=== PATIENT | female | born 1945 | race Caucasian/White ===

== ENCOUNTER 2017-11-02 19:11 | Emergency (ER) | payer OTHER ==
[2017-11-02 19:24] VITALS: BP 197/114; PULSE 95; TEMP 98.7; BMI 26.3
--- NOTE | 2017-11-02 19:28 | PDOC ---
History of Present Illness - General History Source: Patient Exam Limitations: No Limitations - History of Present Illness Initial Comments: 11/02/17 19:53 The patient is a 72 year old female with a significant past medical history of HTN and HLD who presents to the ED with left sided breast erythema. The patient reports erythema to her left breast. She reports similar symptoms in the past and was told she had an infected cyst in her left breast and was given antibiotics. Patient states she is currently on antibiotics secondary to being diagnosed with bronchitis a week ago. Patient states her last mammogram was several years ago. Denies fever or chills. Denies shortness of breath or chest pain. Denies nausea , vomiting, or diarrhea. Denies any other symptoms PAST MEDICAL HISTORY: HTN, HLD, cyst in the left breast PAST SURGICAL HISTORY: no significant history FAMILY HISTORY: no pertinent history SOCIAL HISTORY: Pt lives with family. MEDICATIONS: reviewed ALLERGIES: Sulfa General: No fevers or chills, no weakness, no weight loss HEENT: No change in vision. No sore throat,. No ear pain CardioVascular: No chest pain or shortness of breath Respiratory:No cough, or wheezing. Gastrointestinal: no nausea, vomiting, diarrhea or constipation, No rectal bleeding Genitourinary: No dysuria, hematuria, or frequency Musculoskeletal: No joint or muscle pain or swelling Neurologic: No headache, vertigo, dizziness or loss of consciousness Psychiatric: nor depression Skin: + redness to breast. No rashes or easy bruising Endocrine: no increased thirst or abnormal weight change Allergic: no skin or latex allergy All other systems reviewed and normal General: Well-nourished well-developed individual, no acute distress HEENT: Throat: Normal, tonsils normal, no erythema or exudate Neck: Supple, no meningeal signs, no lymphadenopathy Eyes::Pupils equal reactive and round, extraocular motion intact Chest: Breast: + generalized erythema of the anterior portion of the left breast, no palpable collection. There is a small palpable cyst lateral to the nipple, no discharge to the nipple. no palpable masses. Cardiac: S1-S2 normal, regular rate and rhythm, no murmurs rubs or gallops Respiratory: Lungs clear to auscultation bilateral Abdomen: Soft, nondistended, normal bowel sounds, nontender to palpation diffusely Extremities: Warm, dry, no cyanosis, clubbing, or edema Skin: No rashes Neuro: Alert and oriented x3, nonfocal exam, grossly intact, normal gait Psych: Normal mood and affect <Charlie Varela - Last Filed: 11/02/17 19:53> - General History Source: Patient Exam Limitations: No Limitations - History of Present Illness Initial Comments: A portion of this note was documented by scribe services under my direction. I have reviewed the details of the note, within reason, and agree with the documentation. The case summary and management plan written by me. Assessment and plan: This is a 72-year-old female who comes in complaining of redness and discomfort in her left breast. Patient has a history of breast cellulitis in the past secondary to a cyst that she has that has become infected. Discussed with patient the importance that if the antibiotics do not clear up the infection that it is important that she get her mammogram and follow-up with her primary care doctor. As there is a low chance that this could be a neoplasm and not cellulitis. 11/02/17 20:13 <Blayne Ramirez I - Last Filed: 11/02/17 20:14> - General Chief Complaint: Pain, Acute Stated Complaint: CYST ON LEFT NIPPLE Time Seen by Provider: 11/02/17 19:27 Past History <Charlie Varela - Last Filed: 11/02/17 19:53> - Past Medical History COPD: No HTN: Yes Hypercholesterolemia: Yes Lung CA: (ANXIETY) - Suicide/Smoking/Psychosocial Hx Smoking History: Current every day smoker Have you smoked in the past 12 months: Yes Number of Cigarettes Smoked Daily: 10 Information on smoking cessation initiated: Yes 'Breaking Loose' booklet given: 11/02/17 Hx Alcohol Use: No Drug/Substance Use Hx: No <Blayne Ramirez I - Last Filed: 11/02/17 20:14> - Past Medical History Allergies/Adverse Reactions: Allergies Allergy/AdvReac Type Severity Reaction Status Date / Time sulfur [From Sulfur-8] Allergy Verified 11/02/17 20:10 Home Medications: Ambulatory Orders Alprazolam [Xanax -] 2 mg PO DAILY 11/13/13 Metoprolol Tartrate [Lopressor -] 50 mg PO DAILY 11/13/13 Clindamycin [Cleocin -] 600 mg PO QID #28 capsule 11/02/17 *Physical Exam - Vital Signs Last Vital Signs Temp Pulse Resp BP Pulse Ox 98.7 F 95 H 18 197/114 96 11/02/17 19:17 11/02/17 19:17 11/02/17 19:17 11/02/17 19:17 11/02/17 19:17 <Charlie Varela - Last Filed: 11/02/17 19:53> - Vital Signs Last Vital Signs Temp Pulse Resp BP Pulse Ox 98.7 F 95 H 18 197/114 96 11/02/17 19:17 11/02/17 19:17 11/02/17 19:17 11/02/17 19:17 11/02/17 19:17 <Blayne Ramirez I - Last Filed: 11/02/17 20:14> *DC/Admit/Observation/Transfer - Attestations Scribe Attestion: 11/02/17 19:53 Documentation prepared by Charlie Varela, acting as medical pathologist for Blayne Ramirez MD <Charlie Varela - Last Filed: 11/02/17 19:53> - Discharge Dispostion Admit: No <Blayne Ramirez I - Last Filed: 11/02/17 20:14> Diagnosis at time of Disposition: Cellulitis of left breast - Discharge Dispostion Disposition: HOME Condition at time of disposition: Stable - Referrals Referrals: Bob Montgomery MD [Primary Care Provider] - - Patient Instructions Additional Instructions: Take clindamycin 300 mg 4 times a day for the next 7 days. This medication will likely give you diarrhea if you do not take a probiotic every day you are taking the antibiotics. Return to the emergency department immediately with ANY new, persistent or worsening symptoms. Continue any medications as previously prescribed by your physician. You should follow up with your primary doctor as soon as possible regarding today's emergency department visit. . Please make sure your doctor reviews the results of your emergency evaluation. Thank you for coming to the Emergency Department today for your care. It was a pleasure to see you today. Please note that your evaluation is INCOMPLETE until you follow-up with your doctor. - Post Discharge Activity
[2017-11-02] MEDS ORDERED: CLINDAMYCIN PALMITATE HCL ORAL SOLUTION 75 MG/5 ML BOTTLE PO ONE (20:09)
[2017-11-02] MEDS ORDERED: CLINDAMYCIN HCL 150 MG CAPSULE (FP) ONE (20:11)
[2017-11-02] MEDS ORDERED: CLINDAMYCIN HCL 150 MG CAPSULE (FP) PO ONE (20:13)
--- NOTE | 2017-11-03 09:47 | PDOC ---
Patient Follow-up (Call Back) - Post ED Follow - Up Condition at time of discharge: Stable Disposition at time of original discharge: HOME - Disposition Additional Instructions/Notes: Received a call from [facility] pharmacy regarding Clindamycin prescription. Pt was prescribed clindamycin 600mg QID x 7 days. Per chart review, Dr. De La Fuente's instructions state pt is to take 300mg QID x 7 days. This was communicated to pharmacist, who will correct the dosage.
== END 2017-11-02 20:21 | disposition home or self-care (01) ==
LOC: FER 19:11
DX: N61.0 Mastitis without abscess (principal); I10 Essential (primary) hypertension; E78.5 Hyperlipidemia, unspecified; F17.210 Nicotine dependence, cigarettes, uncomplicated; Z88.2 Allergy status to sulfonamides
CPT/HCPCS: 99281-25

== ENCOUNTER 2019-04-04 11:55 | Emergency (ER) | payer OTHER ==
[2019-04-04 12:36] VITALS: BP 133/82; PULSE 73; TEMP 98.3; BMI 25.6
[2019-04-04 13:18] LABS: BASO % 0.3 % (0-2.0); EOS % 1.6 % (0-4.5); HEMATOCRIT 37.2 % (32.4-45.2); HEMOGLOBIN 12.4 GM/dl (10.7-15.3); LYMPH % 11.3 % (8-40); MCH 28.1 pg (25.7-33.7); MCHC 33.3 g/dl (32.0-36.0); MEAN CELL VOLUME 84.7 fl (80-96); MEAN PLT VOLUME 7.6 fl (7.5-11.1); MONO % 5.8 % (3.8-10.2); PLATELET COUNT 366 K/MM3 (134-434); RBC 4.39 M/mm3 (3.60-5.2); RDW 15.4 % (11.6-15.6); WHITE BLOOD COUNT 11.2 K/mm3 (4.0-10.8)
--- NOTE | 2019-04-04 13:25 | PDOC ---
History of Present Illness - General Chief Complaint: Lethargy Stated Complaint: lethargy Time Seen by Provider: 04/04/19 11:57 History Source: Patient, Family Exam Limitations: No Limitations - History of Present Illness Initial Comments: 04/04/19 15:22 This is a 74-year-old female with history of hypertension, hyperlipidemia presents to the emergency department for mechanical fall. Several months ago, the patient was noted to have hoarseness in her voice which was evaluated by an ENT surgeon. At that time, she was deemed to have vocal cord paralysis. Her primary care physician ultimately pursued with a CT chest and abdomen pelvis. There was notable finding of a mass pressing along her nerve controlling her vocal cords. She was recommended to pursue a PET scan which she has not yet done so. Approximately 1 month ago, the patient has become increasingly more forgetful, shuffling of gait, more fatigue and less like herself. The family has not noted any focal neural deficits but didn't note that she was in denial over the symptoms. The patient is often forgetful and repeating herself. Several days ago, the patient had a mechanical fall and landed on her left wrist. She has left wrist pain but no other injuries. Since then, because of the combination of all these symptoms, patient arrives to the ED at the request of the family. Denies recent illnesses, fevers, chills, cough, vomiting, diarrhea. Past History - Past Medical History Allergies/Adverse Reactions: Allergies Allergy/AdvReac Type Severity Reaction Status Date / Time sulfur [From Sulfur-8] Allergy Verified 04/04/19 12:24 Home Medications: Ambulatory Orders Albuterol Sulfate Inhaler - [Ventolin Hfa Inhaler -] 1 - 2 inh PO QID 04/04/19 Alprazolam [Xanax] 0.5 mg PO PRN PRN 04/04/19 Cephalexin Monohydrate [Keflex -] 500 mg PO BID #14 capsule 04/04/19 Fenofibric Acid [Trilipix -] 45 mg PO DAILY 04/04/19 Hydrochlorothiazide [Hctz -] 25 mg PO DAILY 04/04/19 Nebivolol HCl [Bystolic] 20 mg PO DAILY 04/04/19 Rosuvastatin [Crestor -] 10 mg PO HS 04/04/19 COPD: No HTN: Yes Hypercholesterolemia: Yes Psychiatric Problems: Yes (anxiety) Lung CA: (ANXIETY) - Suicide/Smoking/Psychosocial Hx Smoking History: Current every day smoker Have you smoked in the past 12 months: Yes Number of Cigarettes Smoked Daily: 10 Information on smoking cessation initiated: Yes 'Breaking Loose' booklet given: 11/02/17 Hx Alcohol Use: No Drug/Substance Use Hx: No Review of Systems - Review of Systems Able to Perform ROS?: Yes Comments:: 04/04/19 15:22 GENERAL/CONSTITUTIONAL: [No fever or chills. No weight change.] +weakness HEAD, EYES, EARS, NOSE AND THROAT: [No change in vision. No ear pain or discharge. No sore throat.] CARDIOVASCULAR: [No chest pain or shortness of breath.] RESPIRATORY: [No cough, wheezing, or hemoptysis.] GASTROINTESTINAL: [No nausea, vomiting, diarrhea or constipation. No rectal bleeding.] GENITOURINARY: [No dysuria, frequency, or change in urination.] MUSCULOSKELETAL: [ No neck or back pain.] + left wrist pain. SKIN AND BREASTS: [No rash or easy bruising.] NEUROLOGIC: [No headache, vertigo, loss of consciousness, or loss of sensation. ] +forgetfulness, fatigue PSYCHIATRIC: [No depression or anxiety.] ENDOCRINE: [No increased thirst. No abnormal weight change.] HEMATOLOGIC/LYMPHATIC: [No anemia, easy bleeding, or history of blood clots.] ALLERGIC/IMMUNOLOGIC: [No hives or skin allergy. No latex allergy.] *Physical Exam - Vital Signs Last Vital Signs Temp Pulse Resp BP Pulse Ox 98.3 F 73 20 133/82 98 04/04/19 11:56 04/04/19 11:56 04/04/19 11:56 04/04/19 11:56 04/04/19 11:56 - Physical Exam Comments: 04/04/19 15:23 GENERAL: Awake, alert, oriented x 1 (pt oriented to herself, but thinks it's [facility] and 1992), in no acute distress HEAD: No signs of trauma EYES: PERRLA, EOMI, sclera anicteric, conjunctiva clear ENT: Auricles normal inspection, hearing grossly normal, nares patent NECK: Normal ROM, supple, LUNGS: Breath sounds equal, clear to auscultation bilaterally. No wheezes, and no crackles HEART: Regular rate and rhythm, normal S1 and S2, no murmurs, rubs or gallops ABDOMEN: Soft, nontender, No guarding, no rebound. No masses EXTREMITIES: Normal range of motion, no edema. LUE: 2+ radial pulse. Sensation and strength intact throughout the median/radian /ulnar nerve distribution. TTP left lateral distal wrist but no joint instability. Flexion and extension associated with pain and discomfort. < 2 sec cap refill. NEUROLOGICAL: Cranial nerves II through XII intact. Speech slow but answer questions, gait appears to be slow and measured but otherwise unremarkable. FTN normal, rapid alternating normal. 5/5 strength upper and lower extremities. Sensation intact throughout. No extremity tremors or pill-rolling motion. SKIN: Warm, Dry, normal turgor, no rashes or lesions noted. Procedures - Splinting Splint Location: Left: Wrist Pre-Proc Neuro Vasc Exam: normal Hand-Made Type: orthoglass Splint Type: Yes: Sugar Tong Post-Proc Neuro Vasc Exam: normal Dav Bandage: 4" Sling: Yes Complications: No Heart Score/ECG Review #1 ECG reviewed & interpreted by me at: 13:10 04/04/19 15:14 NSR 71 with 1st degree AV block, TWI I, aVL, V4-V6, no std/alonzo, normal axis, normal intervals, QTC 452 msec ED Treatment Course - LABORATORY CBC & Chemistry Diagram: 04/04/19 13:00 04/04/19 12:59 - ADDITIONAL ORDERS Additional order review: 04/04/19 13:00 RBC 4.39 MCV 84.7 MCHC 33.3 RDW 15.4 D MPV 7.6 Neutrophils % 81.0 Lymphocytes % 11.3 Monocytes % 5.8 Eosinophils % 1.6 Basophils % 0.3 - RADIOLOGY Radiology Studies Ordered: Category Date Time Status HEAD CT WITHOUT CONTRAST [CT] Stat CT Scan 04/04/19 12:09 Completed CHEST PA & LAT [RAD] Stat Radiology 04/04/19 12:12 Taken WRIST-LEFT [RAD] Stat Radiology 04/04/19 12:11 Taken Medical Decision Making - Medical Decision Making 04/04/19 15:25 Vital Signs Temp Pulse Resp BP Pulse Ox 98.3 F 73 20 133/82 98 04/04/19 11:56 04/04/19 11:56 04/04/19 11:56 04/04/19 11:56 04/04/19 11:56 This is a patient who is presenting with progressive deconditioning and some element of failure to thrive over the past month. The patient has become increasingly more forgetful and tired. Differential includes dementia, tumor burden, metabolic disarray or infectious etiology. The patient has been increasingly more forgetful. Head CT is was obtained but demonstrates no acute findings. Blood work shows creatinine of 1.8. Urinalysis positive for infection. It could be possible that the patient's acute worsening is secondary to cystitis. Cephalexin was ordered and a prescription was given. Patient did have a fall several days ago which demonstrated a left wrist fracture. This distal radius fracture was then placed in a sugar tong splint with a sling. Patient was given referral to orthopedist as well as follow with her primary care physician. Overall, I agree that the patient will need to pursue workup for this progressive forgetfulness, but the family is agreeable for outpatient workup. *DC/Admit/Observation/Transfer Diagnosis at time of Disposition: UTI (urinary tract infection) Qualifiers: Urinary tract infection type: site unspecified Hematuria presence: without hematuria Qualified Code(s): N39.0 - Urinary tract infection, site not specified Wrist fracture Qualifiers: Encounter type: initial encounter Fracture type: closed Laterality: left Qualified Code(s): S62.102A - Fracture of unspecified carpal bone, left wrist, initial encounter for closed fracture Altered mental status Qualifiers: Altered mental status type: transient alteration of awareness Qualified Code(s) : R40.4 - Transient alteration of awareness - Discharge Dispostion Disposition: HOME Condition at time of disposition: Stable Decision to Admit order: No - Prescriptions Prescriptions: Cephalexin Monohydrate [Keflex -] 500 mg PO BID #14 capsule - Referrals - Patient Instructions Printed Discharge Instructions: DI for Dehydration -- Adult, DI for Wrist Fracture, DI for Urinary Tract Infection (UTI), DI for Altered Mental Status Additional Instructions: Your workup shows the following: Your creatinine is 1.8. You should bring a copy of this blood work to your doctor for follow-up. This will need to be rechecked with another blood work. Your left wrist shows a fracture along the distal radius. You have had a sugar tong splint applied with a sling. Please wear this at all times. It is important that you follow-up with an orthopedist. For pain, take 650 mg every 4 hours as needed. Elevate the arm is much she can to decrease the swelling. He may also ice over the splint to assist with the cooling. Also notable is a urine tract infection. Please take the antibiotics cephalexin 500 mg every 12 hours for 7 days. Please call back in one to 2 days for the urine culture results as well as the thyroid stimulating hormone test. Call [phone]. If you feel worse, have high fevers, uncontrollable pain, lethargy or other any returning symptoms, return to the ER for further evaluation. - Post Discharge Activity
[2019-04-04 13:37] LABS: ALBUMIN 3.4 g/dl (3.4-5.0); BILIRUBIN,TOTAL 0.7 mg/dl (0.2-1); CALCIUM 9.6 mg/dl (8.5-10); CREATININE 1.8 mg/dl (0.55-1.3); MAGNESIUM 2.2 mg/dL (1.8-2.4); PHOSPHOROUS 3.7 mg/dl (2.5-4.9); POTASSIUM 4.3 mmol/L (3.5-5.1); TOT PROT 6.8 g/dl (6.4-8.2)
[2019-04-04 13:58] LABS: INR 1.1 (0.82-1.09); PROTHROMBIN TIME (PATIENT) 12.3 SEC (10.2-13.0)
[2019-04-04 14:56] LABS: EPITHELIAL CELLS MODERATE /hpf
[2019-04-04] MEDS ORDERED: CEPHALEXIN MONOHYDRATE 500 MG CAPSULE (UD) ONE (15:20)
[2019-04-04 15:47] LABS: COCAINE, UR NEGATIVE ng/ml (CUTOFF=300); METHADONE, UR NEGATIVE ng/ml (CUTOFF=300); OPIATES, URI NEGATIVE ng/ml (CUTOFF=300); PHENCYCLIDINE,URINE NEGATIVE ng/ml (CUTOFF=25); URINE AMPHETAMINES NEGATIVE ng/ml (CUTOFF=500); URINE BARBITURATES NEGATIVE ng/ml (CUTOFF=200)
[2019-04-04 15:49] LABS: URINE BENZODIAZEPINES POSITIVE ng/ml (CUTOFF=200)
--- NOTE | 2019-04-04 17:37 | EKG ---
Test Reason : Blood Pressure : / mmHG Vent. Rate : 071 BPM Atrial Rate : 071 BPM P-R Int : 240 ms QRS Dur : 098 ms QT Int : 416 ms P-R-T Axes : 046 025 150 degrees QTc Int : 452 ms SINUS RHYTHM WITH 1ST DEGREE A-V BLOCK T WAVE ABNORMALITY, CONSIDER ANTEROLATERAL ISCHEMIA ABNORMAL ECG WHEN COMPARED WITH ECG OF 31-JUL-2001 18:57, [place] INTERVAL HAS INCREASED QT HAS LENGTHENED Confirmed by LORENA GUZMAN, RUSSELL ([id number]) on 04/04/2019 5:36:50 PM Referred By: DORIS JOEL Confirmed By:RUSSELL CARRILLO MD
== END 2019-04-04 15:36 | disposition home or self-care (01) ==
LOC: FER 11:55
DX: R40.4 Transient alteration of awareness (principal); N39.0 Urinary tract infection, site not specified; S62.102A Fracture of unspecified carpal bone, left wrist, initial encounter for closed fracture; I10 Essential (primary) hypertension; E78.5 Hyperlipidemia, unspecified; F41.9 Anxiety disorder, unspecified; F17.210 Nicotine dependence, cigarettes, uncomplicated
CPT/HCPCS: 36415; 70450-TC; 71046-TC-FY; 73110-TC-LT-FY; 80053; 80307; 81003; 81015; 83735; 84100; 84443; 84484; 85025; 85610; 85730; 86593; 87086; 87186; 93005; 99283-25

== ENCOUNTER 2019-04-08 12:47 | Emergency (ER) | payer OTHER ==
--- NOTE | 2019-04-08 12:52 | PDOC ---
History of Present Illness - General Chief Complaint: Revisit,Wound Recheck Stated Complaint: ORTHOGLASS SPLINT PROBLEM Time Seen by Provider: 04/08/19 12:52 History Source: Patient Exam Limitations: Clinical Condition - History of Present Illness Initial Comments: Isis Ambrocio is a 74 yo F w a pmh of HTN, HLD, and anxiety who presents to the ER because her splint which was applied 3 days ago in this ER is causing her pain. Her tried cutting off part of the splint at home but that just made the splint more painful and caused a minor laceration underneath the splint. The patient has full ROM of her hand, full sensation, and no complaints of pain other than from the splint. Denies fevers, chills, or other infections. PCP: Dr. Montgomery PSH: None reported Social Hx: Smokes 1 PPD Allergies: Sulfur Past History - Past Medical History Allergies/Adverse Reactions: Allergies Allergy/AdvReac Type Severity Reaction Status Date / Time sulfur [From Sulfur-8] Allergy Verified 04/04/19 12:24 Home Medications: Ambulatory Orders Albuterol Sulfate Inhaler - [Ventolin Hfa Inhaler -] 1 - 2 inh PO QID 04/04/19 Alprazolam [Xanax] 0.5 mg PO PRN PRN 04/04/19 Cephalexin Monohydrate [Keflex -] 500 mg PO BID #14 capsule 04/04/19 Fenofibric Acid [Trilipix -] 45 mg PO DAILY 04/04/19 Hydrochlorothiazide [Hctz -] 25 mg PO DAILY 04/04/19 Nebivolol HCl [Bystolic] 20 mg PO DAILY 04/04/19 Rosuvastatin [Crestor -] 10 mg PO HS 04/04/19 COPD: No HTN: Yes Hypercholesterolemia: Yes Psychiatric Problems: Yes (anxiety) Lung CA: (ANXIETY) - Suicide/Smoking/Psychosocial Hx Smoking History: Current every day smoker Have you smoked in the past 12 months: Yes Number of Cigarettes Smoked Daily: 10 'Breaking Loose' booklet given: 11/02/17 Hx Alcohol Use: No Drug/Substance Use Hx: No Review of Systems - Review of Systems Able to Perform ROS?: Yes Comments:: CONSTITUTIONAL: Absent: fever, no chills, no fatigue EYES: Absent: visual changes ENT: Absent: ear pain, no sore throat CARDIOVASCULAR: Absent: chest pain, no palpitations RESPIRATORY: Absent: cough, no SOB GI: Absent: abdominal pain, no nausea, no vomiting, no constipation, no diarrhea GENITOURINARY: Absent: dysuria, no frequency, no hematuria MUSKULOSKELETAL: Present: Arthralgia Absent: back pain, no myalgia SKIN: Present: Rash NEURO: Absent: headache *Physical Exam - Physical Exam Comments: GENERAL: Well-appearing, well-nourished. No apparent distress. HEENT: Normocephalic, atraumatic. PERRL, EOM intact. CARDIOVASCULAR: Normal S1, S2. Regular rate and rhythm. PULMONARY: No evidence of respiratory distress. Lungs clear to auscultation bilaterally. No wheezing, rales or rhonchi. ABDOMEN: Soft, non-distended, non-tender. EXTREMITIES: Normal ROM in all four extremities. Sugar tong splint on Left forearm. LEFT ARM: Mild TTP along the distal lateral radius. Small 2.5 cm lack distal to elbow. 2+ radial and ulnar pulses. Full sensation and strength throughout radial, ulnar and median nerves. Patient has full sensation and ROM in all 5 fingers on the palmar and dorsal aspect of the hand. full ROM about the wrist and elbow. SKIN: Warm, dry. NEUROLOGICAL: No focal neurological deficits. Procedures - Splinting Splint Location: Left: Forearm Pre-Proc Neuro Vasc Exam: normal Hand-Made Type: orthoglass Splint Type: Yes: Sugar Tong Post-Proc Neuro Vasc Exam: normal Dav Bandage: yes, 3" Sling: Yes Complications: No Post splint xray: No Good repositioning: Yes - Laceration/Wound Repair Left Upper Anterior Lateral Arm Wound Length: to 2.5 cm Wound Explored: clean Wound's Depth, Shape: superficial Irrigated w/ Saline: Yes Betadine Prep: Yes Wound Debrided: minimal Wound Repaired With: Dermabond Sterile Dressing Applied: Yes Splint Applied: Yes Medical Decision Making - Medical Decision Making Isis Ambrocio is a 74 yo F w a pmh of HTN, HLD, and anxiety who presents to the ER because her splint which was applied 3 days ago in this ER is causing her pain. Her tried cutting off part of the splint at home but that just made the splint more painful and caused a minor laceration underneath the splint. The patient has full ROM of her hand, full sensation, and no complaints of pain other than from the splint. Vital Signs Temp Pulse Resp BP Pulse Ox 97.9 F 75 16 130/83 99 04/08/19 12:51 04/08/19 12:51 04/08/19 12:51 04/08/19 12:51 04/08/19 12:51 MDM: Patient presents with pain from splint and small laceration. Neuro- vascularly intact. Full strength, sensation, and ROM. Plan: dermabond laceration, re-apply sugar tong splint, DC with ortho FU. Dermabond applied to laceration. Sugar tong splint made with orthoglass Patient feels well and states cast is now comfortable. - Sling applied to patient. Disposition: Home with ortho follow up on friday with Dr. Wolfe *DC/Admit/Observation/Transfer Diagnosis at time of Disposition: Cast discomfort - Discharge Dispostion Disposition: HOME Condition at time of disposition: Improved Decision to Admit order: No - Referrals Referrals: Bob Montgomery MD [Primary Care Provider] - Gene Wolfe MD [Staff Physician] - - Patient Instructions Printed Discharge Instructions: How to Care for a Surgical Wound Additional Instructions: You came into the ER because your cast was hurting you. We took off your cast and placed a new one. Please make sure to follow up with Dr. Wolfe the orthopedist on Friday at your appointment in 5 days. Come back to the ER immediately if your arm begins to hurt, you feel pain, warmth, get a fever, can't feel your hand, or have any other new or worsening concerns. Thank you for coming to the [facility]. We hope you feel better soon! Print Language: KAZAKH - Post Discharge Activity
--- NOTE | 2019-04-08 13:10 | PDOC ---
Attending Attestation - Resident Resident Name: Dudley Srinivasan - ED Attending Attestation I have performed the following: I have examined & evaluated the patient, The case was reviewed & discussed with the resident, I agree w/resident's findings & plan - HPI HPI: 04/08/19 13:04 74-year-old female with history of hypertension, hyperlipidemia presents to the emergency department for mechanical fall on 04/04/19, found to have left distal radius fx that was splinted with sugar tong splint without complications. Today presents with pain in left elbow from the splint cutting into her arm. Has appt with Ortho next week with Dr Sagastume. No new trauma. No paresthesias, weakness or color change/pallor. 04/08/19 13:08 - Physicial Exam PE: 04/08/19 13:05 General: NAD, well appearing Abdomen: soft, no tenderness, nondistended Vascular: 2+ DP pulses symmetric and equal. MSK: prox and distal strength 5/5 actively against resistance. 5/5 shoulder shrug strength. deltoid sensation intact; sensation grossly intact in median/ radial/ulnar distribution. distal text transcriber strength 5/5. 2+ radialis pulses bilaterally and symmetric. healing ecchymosis to left forearm, no wrist tenderness, FROM in elbow, wrist and hand able to perform thumbs up, finger abduction against resistance, ok sign no scaphoid tenderness Neuro: alert Skin: color normal color, warm and well perfused. Cap refill <2 sec. small v shaped superficial skin tear to elbow. Upper Extremity: 04/08/19 13:08 - Medical Decision Making 04/08/19 13:09 hpi as documented no e/o compartment syndrome, splint cut off, removed and full neuro vascular exam done, intact will resplint with good cushioning and prashanth wrap with orthoglass. ortho f/u next week with Dr Ashley. left elbow skin superficial tear dressed/cleaned return precautions, neurovascular compromise, pain, pallor, weakness/numbness/ tingling. DC in stable condition, pt and family aware of impression and plan. 04/08/19 13:33
[2019-04-08 13:23] VITALS: BP 130/83; PULSE 75; TEMP 97.9; BMI 25.6
== END 2019-04-08 13:37 | disposition home or self-care (01) ==
LOC: FER 12:47
DX: Z46.89 Encounter for fitting and adjustment of other specified devices (principal)
CPT/HCPCS: 99283-25

== ENCOUNTER 2019-04-11 12:37 | Inpatient (IN) | payer OTHER ==
--- NOTE | 2019-04-11 12:44 | PDOC ---
History of Present Illness - General Chief Complaint: Lethargy Stated Complaint: FALL Time Seen by Provider: 04/11/19 12:42 - History of Present Illness Initial Comments: 04/11/19 12:43 78 yo M with h/o HTN, HLD, COPD, recent left distal radial fracture ( in sugar tong splint 04/04/19) who p/w weakness. Patient at bedside to assist in report. Patient reports SOB, Arellano. Family reports increased SOB w/ exertion with household tasks. Also with increased cough x 3-4 days with clear white and alternating brown sputum production. No home O2 requirements. On home albuterol , but does not use. Today patient experienced controlled fall to ground, assisted by . Patient walking and slowly started to drop onto buttocks. Denies head/neck/back trauma, or LOC. Multiple falls within past week x5. Patient recently evaluated for AMS and fall (04/04), found to have UTI at that time, and started on Bactrim. Patient CTH unremarkable at that time (04/04). Patient CT CHEST with concerns of malignancy/liun nodule, was advised to undergo PET scan, but patient refuses. Patient advvised to come to ED by PMD Dr. Montgomery associate ( Dr. Menezes) Patient denies AHUJA, vision change, palpitations, wheezing, orthopena, PND, leg swelling/pain, N/V, F,C, CP, urinary complaints, hematuria, BPR, abdominal pain , diarrhea, constipation, lightheadedness, weakness, sensory changes. PMHx: as noted above ROS: as noted SHx: Daily tobacco use many years. Denies Etoh, IVDA Allergies: Sulfa Medications PMD: Dr. Rivera. Past History - Past Medical History Allergies/Adverse Reactions: Allergies Allergy/AdvReac Type Severity Reaction Status Date / Time sulfur [From Sulfur-8] Allergy Verified 04/11/19 13:01 Home Medications: Ambulatory Orders Albuterol Sulfate Inhaler - [Ventolin Hfa Inhaler -] 1 - 2 inh PO QID 04/04/19 Alprazolam [Xanax] 0.5 mg PO PRN PRN 04/04/19 Cephalexin Monohydrate [Keflex -] 500 mg PO BID #14 capsule 04/04/19 Fenofibric Acid [Trilipix -] 45 mg PO DAILY 04/04/19 Hydrochlorothiazide [Hctz -] 25 mg PO DAILY 04/04/19 Nebivolol HCl [Bystolic] 20 mg PO DAILY 04/04/19 Rosuvastatin [Crestor -] 10 mg PO DAILY 04/04/19 Hydralazine HCl 25 mg PO TID 04/11/19 COPD: No HTN: Yes Hypercholesterolemia: Yes Psychiatric Problems: Yes (anxiety) Lung CA: (ANXIETY) - Suicide/Smoking/Psychosocial Hx Smoking History: Current every day smoker Have you smoked in the past 12 months: Yes Number of Cigarettes Smoked Daily: 10 'Breaking Loose' booklet given: 11/02/17 Hx Alcohol Use: No Drug/Substance Use Hx: No Review of Systems - Review of Systems Comments:: 04/11/19 12:43 GENERAL/CONSTITUTIONAL: No fever or chills. No weakness. HEAD, EYES, EARS, NOSE AND THROAT: No change in vision. No ear pain or discharge. No sore throat. CARDIOVASCULAR: No chest pain or shortness of breath RESPIRATORY: No cough, wheezing, or hemoptysis. GASTROINTESTINAL: No nausea, vomiting, diarrhea or constipation. GENITOURINARY: No dysuria, frequency, or change in urination. MUSCULOSKELETAL: No joint or muscle swelling or pain. No neck or back pain. SKIN: No rash NEUROLOGIC: No headache, vertigo, loss of consciousness, or change in strength/ sensation. ENDOCRINE: No increased thirst. No abnormal weight change HEMATOLOGIC/LYMPHATIC: No anemia, easy bleeding, or history of blood clots. ALLERGIC/IMMUNOLOGIC: No hives or skin allergy. *Physical Exam - Physical Exam Comments: 04/11/19 12:43 GENERAL: Awake, alert, andoriented to person and place, in no acute distress HEAD: No signs of trauma, normocephalic, atraumatic EYES: PERRLA, EOMI, sclera anicteric, conjunctiva clear ENT: Auricles normal inspection, hearing grossly normal, nares patent, oropharynx clear without exudates. Moist mucosa NECK: Normal ROM, supple, no lymphadenopathy, JVD, or masses LUNGS: No distress, speaks full sentences, clear to auscultation bilaterally HEART: Regular rate and rhythm, normal S1 and S2, no murmurs, rubs or gallops, peripheral pulses normal and equal bilaterally. ABDOMEN: Soft, nontender, normoactive bowel sounds. No guarding, no rebound. No masses EXTREMITIES : Right ext. in sugar tong splint radius/ulna. Absent swelling. Intact and symmetirc 2+ Pulses throughout. Normal inspection, Normal range of motion, no edema. No clubbing or cyanosis. NEUROLOGICAL: Cranial nerves II through XII grossly intact. Normal speech, normal gait, no focal sensorimotor deficits SKIN: Warm, Dry, absent rash or lesions ED Treatment Course - LABORATORY CBC & Chemistry Diagram: 04/11/19 13:15 04/11/19 13:15 Medical Decision Making - Medical Decision Making 04/11/19 14:15 78 yo M with h/o HTN, HLD, COPD, recent left distal radial fracture ( in sugar tong splint 04/04/19) who p/w generalized weakness, falls. O2 93 % RA. Vitals otherwise wnl, AF, A&Ox2. Physical exam unremarkable. Will assess for cardiac dyssarythmia, hypoglycemia, electrolyte abnml, metabolic and toxic derangement, acid-base disturbances, infection. 04/11/19 14:19 ED Course: EKG: NSR with LVH absent YAMIL, STD. Nml interval duration and axis. Nml R wave progression. Absent Q waves. 04/11/19 14:38 CXR: No acute pathology UA: 04/11/19 14:39 Laboratory Tests 04/11/19 04/11/19 13:15 13:15 WBC 15.3 H Hgb 11.7 Hct 36.4 Plt Count 348 Sodium 136 Potassium 4.1 BUN 53.0 H Creatinine 2.1 H Random Glucose 129 H Patient with COSME, 1 L NS Plan to admit, AMS, falls, COSME 04/11/19 16:48 UA: Negative *DC/Admit/Observation/Transfer Diagnosis at time of Disposition: COSME (acute kidney injury) Altered mental status Qualifiers: Altered mental status type: unspecified Qualified Code(s): R41.82 - Altered mental status, unspecified - Discharge Dispostion Condition at time of disposition: Stable Decision to Admit order: Yes - Referrals Referrals: Bob Montgomery MD [Primary Care Provider] - - Patient Instructions Additional Instructions: Please return to the emergency department with any new or worsening symptoms or concerns. Please follow up with your primary care physician within 72 hours. - Post Discharge Activity
--- NOTE | 2019-04-11 12:53 | PDOC ---
Attending Attestation - Resident Resident Name: Cricket Alva - ED Attending Attestation I have performed the following: I have examined & evaluated the patient, The case was reviewed & discussed with the resident, I agree w/resident's findings & plan, Exceptions are as noted - HPI HPI: 78 yo F history HTN, HL, COPD, recent distal radius fracture on L presents with recent weakness, falls. As per family, she has fallen once almost every day for the past week. She has been c/o SOB, [place]. She has had cough with clear sputum, intermittently brown. She does not use her COPD meds (was recently diagnosed). She was treated for UTI 1 week ago, still on antibiotics. - Physicial Exam PE: GENERAL: Asleep, awakens to voice, oriented to person, in no acute distress HEAD: No signs of trauma EYES: PERRLA, EOMI, sclera anicteric, conjunctiva clear ENT: Auricles normal inspection, hearing grossly normal, nares patent, oropharynx clear without exudates. Very dry mucosa NECK: Normal ROM, supple, no lymphadenopathy, JVD, or masses LUNGS: Slightly dec air entry B/L, with diffuse exp wheezes B/L HEART: Regular rate and rhythm, normal S1 and S2, no murmurs, rubs or gallops ABDOMEN: Soft, nontender, normoactive bowel sounds. No guarding, no rebound. No masses EXTREMITIES: Normal range of motion, no edema. No clubbing or cyanosis. No cords, erythema, or tenderness NEUROLOGICAL: Cranial nerves II through XII grossly intact. Speech somewhat impaired by dry mouth. Motor and sensation intact SKIN: Warm, dry, normal turgor, no rashes or lesions noted. - Medical Decision Making Pt with recent UTI, has been on antibiotics at home, but has been declining- multiple falls. She appears dehydrated on exam, lungs with wheezing B/L. Found to have acute on chronic renal failure. Will admit to hospitalist.
[2019-04-11 13:42] LABS: BASO % 0.2 % (0-2.0); EOS % 0.2 % (0-4.5); HEMATOCRIT 36.4 % (32.4-45.2); HEMOGLOBIN 11.7 GM/dl (10.7-15.3); LYMPH % 4.5 % (8-40); MCH 27.4 pg (25.7-33.7); MCHC 32.1 g/dl (32.0-36.0); MEAN CELL VOLUME 85.3 fl (80-96); MEAN PLT VOLUME 7.8 fl (7.5-11.1); MONO % 5.5 % (3.8-10.2); NEUT % 89.6 % (42.8-82.8); PLATELET COUNT 348 K/MM3 (134-434); RBC 4.26 M/mm3 (3.60-5.2); WHITE BLOOD COUNT 15.3 K/mm3 (4.0-10.8)
[2019-04-11 14:01] LABS: ALBUMIN 3.2 g/dl (3.4-5.0); BILIRUBIN,TOTAL 1.2 mg/dl (0.2-1); CALCIUM 9.5 mg/dl (8.5-10); CREATININE 2.1 mg/dl (0.55-1.3); POTASSIUM 4.1 mmol/L (3.5-5.1); TOT PROT 6.8 g/dl (6.4-8.2)
[2019-04-11] MEDS ORDERED: SODIUM CHLORIDE 500 ML IV STA (14:37)
[2019-04-11] MEDS: ALBUTEROL SO4 2.5/IPRATROPIUM 0.5 INH SOL 3 ML VIAL.NEB. NEB SCH ×3 (15:00→15:30)
[2019-04-11] MEDS ORDERED: ALBUTEROL SO4 2.5/IPRATROPIUM 0.5 INH SOL 3 ML VIAL.NEB. NEB ONE (15:44)
[2019-04-11 17:06] LABS: EPITHELIAL CELLS MODERATE /hpf; URINE HYALINE CAST 0-2 /lpf
[2019-04-11] MEDS ORDERED: SODIUM CHLORIDE 1,000 ML IV SCH (18:00)
--- NOTE | 2019-04-11 21:01 | EKG ---
Test Reason : Blood Pressure : / mmHG Vent. Rate : 066 BPM Atrial Rate : 066 BPM P-R Int : 208 ms QRS Dur : 106 ms QT Int : 436 ms P-R-T Axes : 078 054 150 degrees QTc Int : 457 ms NORMAL SINUS RHYTHM LEFT VENTRICULAR HYPERTROPHY WITH REPOLARIZATION ABNORMALITY ABNORMAL ECG WHEN COMPARED WITH ECG OF 04-APR-2019 13:06, ST DEPRESSIONS ARE MORE PRONOUNCED Confirmed by LAURA PICKARD MD ([id number]) on 04/11/2019 9:01:10 PM Referred By: YOLANDA PABLO Confirmed By:LAURA PICKARD MD
--- NOTE | 2019-04-11 22:01 | HP ---
CHIEF COMPLAINT: fall,AMS ( lethargy) PCP:Dr. Rivera. HISTORY OF PRESENT ILLNESS: 74 year old female with PMHx of COPD, anxiety, HTN , HLD, recent left radial distal fx ( 04/04/19) arrived to ER with increase confusion, lethargy, SOB with exertion, cough for past 3-4 days with clear white to brown sputum production. Patient non-compliant with albuterol at home. Today patient post fall at home denies dizziness, no acute trauma, as per daughter patient has had multiple falls (5x) over the past week. Last admitted on 04/04 with similar problem AMS/ fall was noted with UTI and discharged with PO Bactrim. Patient denies acute CP, dizzines, N/V, no urinary compliant, constipation, diarrhea. ER course was notable for: (1) wbc 15.3 afebrile (2) cxr: negative (3) EKG: NSR, ST depression - troponin x2 negative 4) pending CT head read Recent Travel: NO PAST MEDICAL HISTORY: HTN, HLD, COPD, PAST SURGICAL HISTORY: denies Social History: Smoking:history Alcohol:no Drugs: no Family History: Allergies sulfur [From Sulfur-8] Allergy (Verified 04/11/19 13:01) HOME MEDICATIONS: Home Medications Medication Instructions Recorded Albuterol Sulfate Inhaler - 1 - 2 inh PO QID 04/04/19 [Ventolin Hfa Inhaler -] Alprazolam [Xanax] 0.5 mg PO PRN PRN 04/04/19 Cephalexin Monohydrate [Keflex -] 500 mg PO BID #14 capsule 04/04/19 Fenofibric Acid [Trilipix -] 45 mg PO DAILY 04/04/19 Hydrochlorothiazide [Hctz -] 25 mg PO DAILY 04/04/19 Nebivolol HCl [Bystolic] 20 mg PO DAILY 04/04/19 Rosuvastatin [Crestor -] 10 mg PO DAILY 04/04/19 Hydralazine HCl 25 mg PO TID 04/11/19 REVIEW OF SYSTEMS GENERAL: increase confusion HEENT: No change in vision. No ear pain or discharge. No sore throat. CARDIOVASCULAR: No chest pain or shortness of breath RESPIRATORY:+ cough productive, absent wheezing, or hemoptysis. GASTROINTESTINAL: No nausea, vomiting, diarrhea or constipation. GENITOURINARY: No dysuria, frequency, or change in urination. MUSCULOSKELETAL: No joint or muscle swelling or pain. No neck or back pain. SKIN: No rash NEUROLOGIC: No headache, vertigo, loss of consciousness, or change in strength/ sensation. PHYSICAL EXAMINATION Vital Signs - 24 hr 04/11/19 04/11/19 04/11/19 12:57 14:13 18:08 Temperature 97.8 F Pulse Rate 73 Pulse Rate [ 68 Left] Respiratory 18 18 Rate Blood Pressure 114/79 Blood Pressure 129/72 [Right Arm] O2 Sat by Pulse 93 L 93 L 99 Oximetry (%) GENERAL: Awake, alert with confusion , AOX2 HEENT: NC/AT, EOMI, PERRLA, NO JVD LUNGS: Breath sounds equal, + wheezes right side HEART: Regular rate and rhythm, normal S1 and S2 without murmur, rub or gallop. ABDOMEN: Soft, nontender, not distended, normoactive bowel sounds, no guarding, no rebound, no masses. No hepatomegaly or splenomegaly. MUSCULOSKELETAL: Normal range of motion at all joints. No bony deformities or tenderness. No CVA tenderness. NEUROLOGICAL: increased confusion, AOX2 PSYCHIATRIC: Cooperative. Good eye contact. Appropriate mood and affect. SKIN: Warm, dry, normal turgor, no rashes or lesions noted, normal capillary refill. Laboratory Results - last 24 hr 04/11/19 04/11/19 04/11/19 13:15 13:15 13:15 WBC 15.3 H RBC 4.26 Hgb 11.7 Hct 36.4 MCV 85.3 MCH 27.4 MCHC 32.1 RDW 15.0 Plt Count 348 MPV 7.8 Absolute Neuts (auto) 13.8 Neutrophils % 89.6 H Lymphocytes % 4.5 L Monocytes % 5.5 Eosinophils % 0.2 Basophils % 0.2 Sodium 136 Potassium 4.1 Chloride 100 Carbon Dioxide 25 Anion Gap 11 BUN 53.0 H Creatinine 2.1 H Est GFR (CKD-EPI)AfAm 26.39 Est GFR (CKD-EPI)NonAf 22.77 Random Glucose 129 H Lactic Acid Calcium 9.5 Total Bilirubin 1.2 H AST 19 ALT 11 L Alkaline Phosphatase 49 Creatine Kinase Cancelled Troponin I Cancelled 0.03 Total Protein 6.8 Albumin 3.2 L TSH 1.01 Urine Color Urine Appearance Urine pH Urine Protein Urine Glucose (UA) Urine Ketones Urine Blood Urine Nitrite Urine Bilirubin Urine Urobilinogen Ur Leukocyte Esterase Urine RBC Ur Transition Epith Cell Hyaline Casts 04/11/19 04/11/19 04/11/19 13:15 16:15 19:00 WBC RBC Hgb Hct MCV MCH MCHC RDW Plt Count MPV Absolute Neuts (auto) Neutrophils % Lymphocytes % Monocytes % Eosinophils % Basophils % Sodium Potassium Chloride Carbon Dioxide Anion Gap BUN Creatinine Est GFR (CKD-EPI)AfAm Est GFR (CKD-EPI)NonAf Random Glucose Lactic Acid 0.6 Calcium Total Bilirubin AST ALT Alkaline Phosphatase Creatine Kinase 31 Troponin I Total Protein Albumin TSH Urine Color Yellow Urine Appearance Clear Urine pH 5.5 Urine Protein 1+ H Urine Glucose (UA) Negative Urine Ketones Negative Urine Blood Negative Urine Nitrite Negative Urine Bilirubin Negative Urine Urobilinogen 0.2 Ur Leukocyte Esterase Negative Urine RBC 0-2 Ur Transition Epith Cell Moderate Hyaline Casts 0-2 04/11/19 19:00 WBC RBC Hgb Hct MCV MCH MCHC RDW Plt Count MPV Absolute Neuts (auto) Neutrophils % Lymphocytes % Monocytes % Eosinophils % Basophils % Sodium Potassium Chloride Carbon Dioxide Anion Gap BUN Creatinine Est GFR (CKD-EPI)AfAm Est GFR (CKD-EPI)NonAf Random Glucose Lactic Acid Calcium Total Bilirubin AST ALT Alkaline Phosphatase Creatine Kinase Troponin I < 0.03 Total Protein Albumin TSH Urine Color Urine Appearance Urine pH Urine Protein Urine Glucose (UA) Urine Ketones Urine Blood Urine Nitrite Urine Bilirubin Urine Urobilinogen Ur Leukocyte Esterase Urine RBC Ur Transition Epith Cell Hyaline Casts ASSESSMENT/PLAN: 74 year old female with h/o HTN, HLD, COPD, anxiety recent left distal radial fracture arrived to ED for generalized weakness/confusion, and multiple falls at home last admit 04/04 for UTI was on Bactrim PO at home COSME AMS/Falls UTI - 1 L NS given in ED - continue with IVF - CT head done, pending official read - will start Rocephin IV antiboitics - follow up blood and urine culture - follow up CBC, CMP in AM - if WBC continues to trend follow up ID - safety/fall precaution #COPD - continue with nebulizer - monitor Spo2 if noted 88% notify 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 # Anxiety - Continue with Xanax PRN # HTN/HLD - Continue wih Trilipix - Continue with HCTZ, Bystolic - Continue with crestor - Continue with Hydralazine Problem List - Problem (1) Altered mental status Code(s): R41.82 - ALTERED MENTAL STATUS, UNSPECIFIED Qualifiers: Altered mental status type: unspecified Qualified Code(s): R41.82 - Altered mental status, unspecified (2) COSME (acute kidney injury) Code(s): N17.9 - ACUTE KIDNEY FAILURE, UNSPECIFIED (3) UTI (urinary tract infection) Code(s): N39.0 - URINARY TRACT INFECTION, SITE NOT SPECIFIED Qualifiers: Urinary tract infection type: site unspecified Hematuria presence: without hematuria Qualified Code(s): N39.0 - Urinary tract infection, site not specified (4) Fall Code(s): W19.XXXA - UNSPECIFIED FALL, INITIAL ENCOUNTER (5) COPD (chronic obstructive pulmonary disease) Code(s): J44.9 - CHRONIC OBSTRUCTIVE PULMONARY DISEASE, UNSPECIFIED (6) Anxiety Code(s): F41.9 - ANXIETY DISORDER, UNSPECIFIED (7) HTN (hypertension) Code(s): I10 - ESSENTIAL (PRIMARY) HYPERTENSION (8) HLD (hyperlipidemia) Code(s): E78.5 - HYPERLIPIDEMIA, UNSPECIFIED Visit type - Emergency Visit Emergency Visit: Yes ED Registration Date: 04/11/19 Care time: The patient presented to the Emergency Department on the above date and was hospitalized for further evaluation of their emergent condition. - New Patient This patient is new to me today: Yes Date on this admission: 04/11/19 - Critical Care Critical Care patient: No
[2019-04-11] MEDS ORDERED: PATIENT'S OWN MEDICATION (NON-FORMULARY) (Alprazolam [Xanax] 0.5 MG) PO PRN (22:06)
[2019-04-12 02:12] VITALS: BMI 23.9
[2019-04-12] MEDS: ALBUTEROL SO4 0.083% IH SOL 2.5 MG/3 ML VIAL.NEB. NEB PRN ×2 (03:03→14:19)
[2019-04-12] MEDS: hydrALAZINE HCL 25 MG TABLET (FP) PO SCH ×3 (06:13→21:55)
--- NOTE | 2019-04-12 08:45 | PN ---
Progress Note, Physician - Current Medication List Current Medications: Active Medications Albuterol Sulfate (Ventolin 0.083% Nebulizer Soln -) 1 amp NEB Q6H PRN PRN Reason: SHORT OF BREATH/WHEEZING Last Admin: 04/12/19 03:03 Dose: 1 amp Fenofibric Acid (Trilipix -) 45 mg PO DAILY [facility] Heparin Sodium (Porcine) (Heparin -) 5,000 unit SQ BID RAUL Hydralazine HCl (Apresoline -) 25 mg PO TID RAUL Last Admin: 04/12/19 06:13 Dose: 25 mg Hydrochlorothiazide (Hctz -) 25 mg PO DAILY RAUL Sodium Chloride (Normal Saline -) 1,000 mls @ 75 mls/hr IV ASDIR RAUL Last Admin: 04/11/19 20:35 Dose: 75 mls/hr Ceftriaxone Sodium (Ceftriaxone 1 Gm-D5w Bag) 50 mls @ 100 mls/hr IVPB DAILY RAUL; Protocol Nebivolol (Bystolic -) 20 mg PO DAILY [facility] Non-Formulary Medication (Alprazolam [Xanax]) 0.5 mg PO PRN PRN PRN Reason: ANXIETY Rosuvastatin Calcium (Crestor -) 10 mg PO HS [facility] - Objective Vital Signs: Vital Signs Temperature 98.7 F 04/12/19 06:00 Pulse Rate 89 04/12/19 06:00 Respiratory Rate 18 04/12/19 06:00 Blood Pressure 156/80 04/12/19 06:00 O2 Sat by Pulse Oximetry (%) 90 L 04/12/19 06:00 Cardiovascular: Yes: S1, S2 Respiratory: Yes: Regular, CTA Bilaterally Gastrointestinal: Yes: Normal Bowel Sounds, Soft Extremities: Yes: Other (splint on left arm) Edema: No Problem List - Problems (1) COSME (acute kidney injury) Assessment/Plan: -fOLLOW LABS IVF RENAL CONSULT Code(s): N17.9 - ACUTE KIDNEY FAILURE, UNSPECIFIED (2) Altered mental status Assessment/Plan: MAYBE DUE TO UTI TREAT Code(s): R41.82 - ALTERED MENTAL STATUS, UNSPECIFIED Qualifiers: Altered mental status type: unspecified Qualified Code(s): R41.82 - Altered mental status, unspecified (3) COPD (chronic obstructive pulmonary disease) Assessment/Plan: NEBS PULM CONSULT Code(s): J44.9 - CHRONIC OBSTRUCTIVE PULMONARY DISEASE, UNSPECIFIED (4) Fall Assessment/Plan: PHYSICAL THERAPY Code(s): W19.XXXA - UNSPECIFIED FALL, INITIAL ENCOUNTER (5) HTN (hypertension) Assessment/Plan: MONITOR ON MEDS Code(s): I10 - ESSENTIAL (PRIMARY) HYPERTENSION (6) UTI (urinary tract infection) Assessment/Plan: ABX CULTURES ID CONSULT Code(s): N39.0 - URINARY TRACT INFECTION, SITE NOT SPECIFIED Qualifiers: Urinary tract infection type: site unspecified Hematuria presence: without hematuria Qualified Code(s): N39.0 - Urinary tract infection, site not specified (7) Wrist fracture Assessment/Plan: ORTHO CONSULT Code(s): S62.109A - FRACTURE OF UNSP CARPAL BONE, UNSP WRIST, INIT FOR CLOS FX Qualifiers: Encounter type: initial encounter Fracture type: closed Laterality: left Qualified Code(s): S62.102A - Fracture of unspecified carpal bone, left wrist , initial encounter for closed fracture
[2019-04-12 08:47] LABS: CALCIUM 9.1 mg/dl (8.5-10); CREATININE 1.5 mg/dl (0.55-1.3); POTASSIUM 4.1 mmol/L (3.5-5.1); TOT PROT 6.6 g/dl (6.4-8.2)
[2019-04-12 08:54] LABS: HEMATOCRIT 35.9 % (32.4-45.2); HEMOGLOBIN 11.9 GM/dl (10.7-15.3); MCH 28.3 pg (25.7-33.7); MCHC 33.2 g/dl (32.0-36.0); MEAN CELL VOLUME 85.3 fl (80-96); MEAN PLT VOLUME 8.1 fl (7.5-11.1); PLATELET COUNT 316 K/MM3 (134-434); RBC 4.21 M/mm3 (3.60-5.2); RDW 14.9 % (11.6-15.6); WHITE BLOOD COUNT 11.5 K/mm3 (4.0-10.8)
[2019-04-12] MEDS ORDERED: PT OWN MED DRAWER 7, Y5N ONE (09:24)
[2019-04-12] MEDS: NEBIVOLOL 10 MG TABLET (FP) PO SCH (09:39)
[2019-04-12] MEDS: FENOFIBRIC ACID 45 MG CAP PO SCH (09:40)
[2019-04-12] MEDS: CEFTRIAXONE 1 G/50 ML PREMIX 50 ML IVPB SCH (09:43)
[2019-04-12] MEDS: HEPARIN NA (PORCINE) 5,000 UNITS/ML 1ML VIAL SQ SCH ×2 (09:43→21:54)
[2019-04-12] MEDS ORDERED: HYDROCHLOROTHIAZIDE 25 MG TABLET (FP) PO SCH (10:00)
[2019-04-12] MEDS ORDERED: CEFTRIAXONE 1 GM in DEXTROSE 5%-WATER - 50 ML IVPB SCH (10:00)
[2019-04-12] MEDS ORDERED: ALPRAZolam 1 MG TABLET PO PRN (10:13)
--- NOTE | 2019-04-12 17:17 | CONSULT ---
Consult - text type - Consultation Consultation Note: Renal consult for COSME This is a 78 year old woman with history of COPD, hypertension, hyperlipidemia, with recent distal radial fracture who presents with weakness and found to have COSME. PMhx:as above Allergies: Sufla Family Hx: NC Social Hx: Current smoker ROS: as per HPI Home Medications Medication Instructions Recorded Albuterol Sulfate Inhaler - 1 - 2 inh PO QID 04/04/19 [Ventolin Hfa Inhaler -] Alprazolam [Xanax] 0.5 mg PO PRN PRN 04/04/19 Cephalexin Monohydrate [Keflex -] 500 mg PO BID #14 capsule 04/04/19 Fenofibric Acid [Trilipix -] 45 mg PO DAILY 04/04/19 Hydrochlorothiazide [Hctz -] 25 mg PO DAILY 04/04/19 Nebivolol HCl [Bystolic] 20 mg PO DAILY 04/04/19 Rosuvastatin [Crestor -] 10 mg PO DAILY 04/04/19 Hydralazine HCl 25 mg PO TID 04/11/19 Vital Signs Temperature 98.3 F 04/12/19 13:43 Pulse Rate 79 04/12/19 13:43 Respiratory Rate 18 04/12/19 13:43 Blood Pressure 138/63 04/12/19 13:43 O2 Sat by Pulse Oximetry (%) 96 04/12/19 13:43 Intake & Output 04/09/19 04/10/19 04/11/19 04/12/19 23:59 23:59 23:59 23:59 Intake Total 75 300 Output Total 0 Balance 75 300 Weight 59.33 kg CBC, BMP 04/12/19 07:09 04/12/19 07:09 Laboratory Tests 04/11/19 04/11/19 04/12/19 13:15 19:00 07:09 BUN 53.0 H 48.0 H Creatinine 2.1 H 1.5 H Lactic Acid 0.6 Calcium 9.1 Albumin 3.0 L Laboratory Tests 04/11/19 16:15 Urine Protein 1+ H Microbiology Current Medications Albuterol Sulfate (Ventolin 0.083% Nebulizer Soln -) 1 amp NEB Q6H PRN PRN Reason: SHORT OF BREATH/WHEEZING Last Admin: 04/12/19 14:19 Dose: 1 amp Alprazolam (Xanax) 0.5 mg PO DAILY PRN PRN Reason: ANXIETY Last Admin: 04/12/19 12:32 Dose: 0.5 mg Fenofibric Acid (Trilipix -) 45 mg PO DAILY [facility] Last Admin: 04/12/19 09:40 Dose: 45 mg Heparin Sodium (Porcine) (Heparin -) 5,000 unit SQ BID [facility] Last Admin: 04/12/19 09:43 Dose: 5,000 unit Hydralazine HCl (Apresoline -) 25 mg PO TID [facility] Last Admin: 04/12/19 14:18 Dose: 25 mg Sodium Chloride (Normal Saline -) 1,000 mls @ 75 mls/hr IV ASDIR RAUL Last Admin: 04/11/19 20:35 Dose: 75 mls/hr Ceftriaxone Sodium (Ceftriaxone 1 Gm-D5w Bag) 50 mls @ 100 mls/hr IVPB DAILY [facility]; Protocol Last Admin: 04/12/19 09:43 Dose: 100 mls/hr Nebivolol (Bystolic -) 20 mg PO DAILY [facility] Last Admin: 04/12/19 09:39 Dose: 20 mg Non-Formulary Medication (Alprazolam [Xanax]) 0.5 mg PO PRN PRN PRN Reason: ANXIETY Rosuvastatin Calcium (Crestor -) 10 mg PO HS [facility] 78 year old woman with history of COPD, hypertension, hyperlipidemia, with recent distal radial fracture who presents with weakness and found to have COSME. #COSME likely due to volume depeltion/pre-renal injury #Weakness #Leukocytosis #Hypertension #Hyperlipidemia Renal function with improvement from admission high BUN/Cr ratio supports volume depletion check urine studies Check DAVID given pt is on Hydralazine Continue NS at 75cc per hour Trend renal function and electrolytes daily pain control w/o nsaids Thank you Devon Culver DO
--- NOTE | 2019-04-12 18:35 | CON.PULM ---
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 ARRANGED PET BUT PATIENT WAS RELUCTANT. DEVELOPED PROGRESSIVE WEAKNESS WITH FALL AND HAD A RECENT LEFT DISTAL RADIAL FRACTURE. NOW ADMITTED WITH FAILURE TO THRIVE AND UTI. - History Source History Provided By: Patient, Medical Record Limitations to Obtaining History: Clinical Condition - Past Medical History Cardio/Vascular: No: AFIB Pulmonary: Yes: COPD. No: O2 Dependent Gastrointestinal: No: Ascites Hepatobiliary: No: Cirrhosis Renal/: Yes: Renal Inusuff Reproductive: Yes: Postmenopausal ...: No Heme/Onc: Yes: Anemia Infectious Disease: No: AIDS Psych: No: Addictions - Alcohol/Substance Use Hx Alcohol Use: No - Smoking History Smoking history: Current every day smoker Have you smoked in the past 12 months: Yes Aproximately how many cigarettes per day: 10 If you are a former smoker, when did you quit?: Two weeks ago - Social History Usual Living Arrangement: With Spouse Place of : [facility] History of Recent Travel: No Home Medications - Allergies Allergies/Adverse Reactions: Allergies Allergy/AdvReac Type Severity Reaction Status Date / Time sulfur [From Sulfur-8] Allergy Verified 04/11/19 13:01 - Home Medications Home Medications: Ambulatory Orders Albuterol Sulfate Inhaler - [Ventolin Hfa Inhaler -] 1 - 2 inh PO QID 04/04/19 Alprazolam [Xanax] 0.5 mg PO PRN PRN 04/04/19 Cephalexin Monohydrate [Keflex -] 500 mg PO BID #14 capsule 04/04/19 Fenofibric Acid [Trilipix -] 45 mg PO DAILY 04/04/19 Hydrochlorothiazide [Hctz -] 25 mg PO DAILY 04/04/19 Nebivolol HCl [Bystolic] 20 mg PO DAILY 04/04/19 Rosuvastatin [Crestor -] 10 mg PO DAILY 04/04/19 Hydralazine HCl 25 mg PO TID 04/11/19 Family Disease History - Family Disease History Family History: Unremarkable Review of Systems - Review of Systems Constitutional: reports: Fever. denies: Chills Eyes: denies: Blind Spots HENT: reports: Other (HOARSENESS OF VOICE). denies: Difficult Swallowing Neck: denies: Decreased ROM Cardiovascular: denies: Chest Pain Respiratory: reports: Cough, SOB, SOB on Exertion, Wheezing. denies: Hemoptysis Gastrointestinal: denies: Abdominal Pain Genitourinary: reports: Burning, Dysuria Breasts: reports: No Symptoms Reported Musculoskeletal: reports: No Symptoms Integumentary: reports: No Symptoms Neurological: reports: No Symptoms Endocrine: reports: No Symptoms Hematology/Lymphatic: reports: No Symptoms Psychiatric: reports: Depression Physical Exam Vital Sings: Vital Signs Temperature 98.3 F 04/12/19 13:43 Pulse Rate 79 04/12/19 13:43 Respiratory Rate 18 04/12/19 13:43 Blood Pressure 138/63 04/12/19 13:43 O2 Sat by Pulse Oximetry (%) 96 04/12/19 13:43 Constitutional: Yes: Calm Eyes: Yes: EOM Intact HENT: Yes: Normocephalic Neck: Yes: Trachea Midline Cardiovascular: Yes: Regular Rate and Rhythm Respiratory: Yes: Diminished Gastrointestinal: Yes: Soft Extremities: Yes: Other (LEFT UPPER EXT WITH SPLINT) Edema: No Labs: CBC, BMP 04/12/19 07:09 04/12/19 07:09 Imaging - Results Chest X-ray: Report Reviewed EKG: Report Reviewed, Image Reviewed Problem List - Problems (1) COSME (acute kidney injury) Code(s): N17.9 - ACUTE KIDNEY FAILURE, UNSPECIFIED (2) COPD (chronic obstructive pulmonary disease) Code(s): J44.9 - CHRONIC OBSTRUCTIVE PULMONARY DISEASE, UNSPECIFIED (3) Fall Code(s): W19.XXXA - UNSPECIFIED FALL, INITIAL ENCOUNTER (4) HTN (hypertension) Code(s): I10 - ESSENTIAL (PRIMARY) HYPERTENSION (5) Cast discomfort Code(s): Z47.89 - ENCOUNTER FOR OTHER ORTHOPEDIC AFTERCARE Assessment/Plan COPD LUNG NODULE/MASS VC PARALYSIS FALL WITH LEFT DISTAL RADIAL FRACTURE HTN/HLP UTI FAILURE TO THRIVE ANXIETY/DEPRESSION CONTINUE IV ANTIBIOTICS/FLUIDS/O2/BRONCHODLATORS ANTI-ANXIETY MEDS WILL NEED PET SCAN OUTPATIENT WOULD PLAN FOR POST HOSPITAL REHAB WILL FOLLOW Garfield LIND MD
[2019-04-12] MEDS: ALBUTEROL SO4 0.083% IH SOL 2.5 MG/3 ML VIAL.NEB. NEB SCH (21:54)
[2019-04-12] MEDS: ROSUVASTATIN CA 10 MG TABLET (FP) PO SCH (21:55)
[2019-04-12] MEDS: ALPRAZolam 0.25 MG TABLET PO SCH (21:55)
[2019-04-13] MEDS: ALPRAZolam 0.25 MG TABLET PO SCH ×3 (06:23→22:02)
[2019-04-13] MEDS: hydrALAZINE HCL 25 MG TABLET (FP) PO SCH ×3 (06:23→22:02)
--- NOTE | 2019-04-13 08:11 | PN ---
Progress Note, Physician - Current Medication List Current Medications: Active Medications Albuterol Sulfate (Ventolin 0.083% Nebulizer Soln -) 1 amp NEB RQID [facility] Last Admin: 04/12/19 21:54 Dose: 1 amp Alprazolam (Xanax -) 0.5 mg PO TID [facility] Last Admin: 04/13/19 06:23 Dose: 0.5 mg Fenofibric Acid (Trilipix -) 45 mg PO DAILY [facility] Last Admin: 04/12/19 09:40 Dose: 45 mg Heparin Sodium (Porcine) (Heparin -) 5,000 unit SQ BID [facility] Last Admin: 04/12/19 21:54 Dose: 5,000 unit Hydralazine HCl (Apresoline -) 25 mg PO TID [facility] Last Admin: 04/13/19 06:23 Dose: 25 mg Sodium Chloride (Normal Saline -) 1,000 mls @ 75 mls/hr IV ASDIR [facility] Last Admin: 04/11/19 20:35 Dose: 75 mls/hr Ceftriaxone Sodium (Ceftriaxone 1 Gm-D5w Bag) 50 mls @ 100 mls/hr IVPB DAILY [facility]; Protocol Last Admin: 04/12/19 09:43 Dose: 100 mls/hr Nebivolol (Bystolic -) 20 mg PO DAILY [facility] Last Admin: 04/12/19 09:39 Dose: 20 mg Rosuvastatin Calcium (Crestor -) 10 mg PO HS [facility] Last Admin: 04/12/19 21:55 Dose: 10 mg - Objective Vital Signs: Vital Signs Temperature 98.5 F 04/13/19 06:00 Pulse Rate 75 04/13/19 06:00 Respiratory Rate 19 04/13/19 06:00 Blood Pressure 151/64 04/13/19 06:00 O2 Sat by Pulse Oximetry (%) 94 L 04/13/19 07:01 Cardiovascular: Yes: Regular Rate and Rhythm Respiratory: Yes: Regular, CTA Bilaterally Gastrointestinal: Yes: Normal Bowel Sounds, Soft Labs: CBC, BMP 04/12/19 07:09 Problem List - Problems (1) COSME (acute kidney injury) Assessment/Plan: -Improving fOLLOW LABS IVF RENAL CONSULT Code(s): N17.9 - ACUTE KIDNEY FAILURE, UNSPECIFIED (2) Altered mental status Assessment/Plan: MAYBE DUE TO UTI TREAT AND MONITOR Code(s): R41.82 - ALTERED MENTAL STATUS, UNSPECIFIED Qualifiers: Altered mental status type: unspecified Qualified Code(s): R41.82 - Altered mental status, unspecified (3) COPD (chronic obstructive pulmonary disease) Assessment/Plan: NEBS PULM CONSULT NOTED Code(s): J44.9 - CHRONIC OBSTRUCTIVE PULMONARY DISEASE, UNSPECIFIED (4) Fall Assessment/Plan: PHYSICAL THERAPY Code(s): W19.XXXA - UNSPECIFIED FALL, INITIAL ENCOUNTER (5) HTN (hypertension) Assessment/Plan: MONITOR ON MEDS Code(s): I10 - ESSENTIAL (PRIMARY) HYPERTENSION (6) UTI (urinary tract infection) Assessment/Plan: ABX CULTURES ID CONSULT Code(s): N39.0 - URINARY TRACT INFECTION, SITE NOT SPECIFIED Qualifiers: Urinary tract infection type: site unspecified Hematuria presence: without hematuria Qualified Code(s): N39.0 - Urinary tract infection, site not specified (7) Wrist fracture Assessment/Plan: ORTHO CONSULT Code(s): S62.109A - FRACTURE OF UNSP CARPAL BONE, UNSP WRIST, INIT FOR CLOS FX Qualifiers: Encounter type: initial encounter Fracture type: closed Laterality: left Qualified Code(s): S62.102A - Fracture of unspecified carpal bone, left wrist , initial encounter for closed fracture (8) Lung mass Assessment/Plan: PET OUTPATIENT Code(s): R91.8 - OTHER NONSPECIFIC ABNORMAL FINDING OF LUNG FIELD
--- NOTE | 2019-04-13 08:14 | CON.ORTH ---
Consult Reason for Consultation:: left wrist fx - Past Medical History Cardio/Vascular: No: AFIB Pulmonary: Yes: COPD. No: O2 Dependent Gastrointestinal: No: Ascites Hepatobiliary: No: Cirrhosis Renal/: Yes: Renal Inusuff ...: No Infectious Disease: No: AIDS Psych: No: Addictions - Alcohol/Substance Use Hx Alcohol Use: No - Smoking History Smoking history: Current every day smoker Have you smoked in the past 12 months: Yes Aproximately how many cigarettes per day: 10 If you are a former smoker, when did you quit?: Two weeks ago - Social History Usual Living Arrangement: With Spouse History of Recent Travel: No Home Medications - Allergies Allergies/Adverse Reactions: Allergies Allergy/AdvReac Type Severity Reaction Status Date / Time sulfur [From Sulfur-8] Allergy Verified 04/11/19 13:01 - Home Medications Home Medications: Ambulatory Orders Albuterol Sulfate Inhaler - [Ventolin Hfa Inhaler -] 1 - 2 inh PO QID 04/04/19 Alprazolam [Xanax] 0.5 mg PO PRN PRN 04/04/19 Cephalexin Monohydrate [Keflex -] 500 mg PO BID #14 capsule 04/04/19 Fenofibric Acid [Trilipix -] 45 mg PO DAILY 04/04/19 Hydrochlorothiazide [Hctz -] 25 mg PO DAILY 04/04/19 Nebivolol HCl [Bystolic] 20 mg PO DAILY 04/04/19 Rosuvastatin [Crestor -] 10 mg PO DAILY 04/04/19 Hydralazine HCl 25 mg PO TID 04/11/19 Physical Exam for Ortho Vital Signs: Vital Signs Temperature 98.5 F 04/13/19 06:00 Pulse Rate 75 04/13/19 06:00 Respiratory Rate 19 04/13/19 06:00 Blood Pressure 151/64 04/13/19 06:00 O2 Sat by Pulse Oximetry (%) 94 L 04/13/19 07:01 Labs: CBC, BMP 04/12/19 07:09 - Upper Extremity Wrist: Yes: Left, Other (splint intact, + swelling, + ttp, nvi) Imaging - Results X-ray: Report Reviewed, Image Reviewed Assessment/Plan 74 year old female with PMHx of COPD, anxiety, HTN, HLD, recent left radial distal fx ( 04/04/19) arrived to ER with increase confusion, lethargy, SOB with exertion, cough for past 3-4 days with clear white to brown sputum production. Pt currently in splint. a/p left nondisplaced distal radius fx will order wrist splint NWB L UE elevation will need 6 weeks of immobilization d/w Dr. Quijano
[2019-04-13] MEDS: ALBUTEROL SO4 0.083% IH SOL 2.5 MG/3 ML VIAL.NEB. NEB SCH ×4 (08:40→20:28)
[2019-04-13] MEDS ORDERED: PT OWN MED DRAWER 7, Y5N ONE (09:04)
[2019-04-13 09:10] LABS: CALCIUM 8.3 mg/dl (8.5-10); CREATININE 1.1 mg/dl (0.55-1.3); MAGNESIUM 1.9 mg/dL (1.8-2.4); PHOSPHOROUS 2.3 mg/dl (2.5-4.9); POTASSIUM 3.3 mmol/L (3.5-5.1)
[2019-04-13] MEDS: HEPARIN NA (PORCINE) 5,000 UNITS/ML 1ML VIAL SQ SCH ×2 (10:16→22:02)
[2019-04-13] MEDS: NEBIVOLOL 10 MG TABLET (FP) PO SCH (10:17)
[2019-04-13] MEDS: CEFTRIAXONE 1 G/50 ML PREMIX 50 ML IVPB SCH (10:18)
[2019-04-13] MEDS: FENOFIBRIC ACID 45 MG CAP PO SCH (10:20)
--- NOTE | 2019-04-13 10:43 | PN ---
Progress Note (short form) - Note Progress Note: ID CONSULT DICTATED UTI R/O SEPSIS SECONDARY TO UTI AWAIT C/S CONTINUE EMPIRIC CEFTRIAXONE
--- NOTE | 2019-04-13 11:09 | PN ---
Progress Note, Physician History of Present Illness: PULMONARY ALERT,STILL CONGESTED,+ COUGH - Current Medication List Current Medications: Active Medications Albuterol Sulfate (Ventolin 0.083% Nebulizer Soln -) 1 amp NEB RQID [facility] Last Admin: 04/13/19 08:40 Dose: 1 amp Alprazolam (Xanax -) 0.5 mg PO TID [facility] Last Admin: 04/13/19 06:23 Dose: 0.5 mg Fenofibric Acid (Trilipix -) 45 mg PO DAILY [facility] Last Admin: 04/13/19 10:20 Dose: 45 mg Heparin Sodium (Porcine) (Heparin -) 5,000 unit SQ BID [facility] Last Admin: 04/13/19 10:16 Dose: 5,000 unit Hydralazine HCl (Apresoline -) 25 mg PO TID [facility] Last Admin: 04/13/19 06:23 Dose: 25 mg Sodium Chloride (Normal Saline -) 1,000 mls @ 75 mls/hr IV ASDIR [facility] Last Admin: 04/11/19 20:35 Dose: 75 mls/hr Ceftriaxone Sodium (Ceftriaxone 1 Gm-D5w Bag) 50 mls @ 100 mls/hr IVPB DAILY [facility]; Protocol Last Admin: 04/13/19 10:18 Dose: 100 mls/hr Nebivolol (Bystolic -) 20 mg PO DAILY [facility] Last Admin: 04/13/19 10:17 Dose: 20 mg Rosuvastatin Calcium (Crestor -) 10 mg PO HS [facility] Last Admin: 04/12/19 21:55 Dose: 10 mg - Objective Vital Signs: Vital Signs Temperature 98.7 F 04/13/19 10:00 Pulse Rate 110 H 04/13/19 10:00 Respiratory Rate 04/13/19 10:00 Blood Pressure 144/51 L 04/13/19 10:00 O2 Sat by Pulse Oximetry (%) 94 L 04/13/19 08:48 Constitutional: Yes: Well Nourished, Calm Eyes: Yes: WNL HENT: Yes: WNL Neck: Yes: WNL Cardiovascular: Yes: Regular Rate and Rhythm, S1, S2 Respiratory: Yes: Rhonchi (BILATERAL RHONCHI) Gastrointestinal: Yes: Normal Bowel Sounds, Soft Extremities: Yes: Other (LEFT ARM IN CAST) Edema: No Labs: CBC, BMP 04/12/19 07:09 04/13/19 07:13 Assessment/Plan Problem List - Problems (1) COSME (acute kidney injury) Code(s): N17.9 - ACUTE KIDNEY FAILURE, UNSPECIFIED (2) COPD (chronic obstructive pulmonary disease) Code(s): J44.9 - CHRONIC OBSTRUCTIVE PULMONARY DISEASE, UNSPECIFIED (3) Fall Code(s): W19.XXXA - UNSPECIFIED FALL, INITIAL ENCOUNTER (4) HTN (hypertension) Code(s): I10 - ESSENTIAL (PRIMARY) HYPERTENSION (5) Cast discomfort Code(s): Z47.89 - ENCOUNTER FOR OTHER ORTHOPEDIC AFTERCARE Assessment/Plan COPD LUNG NODULE/MASS VC PARALYSIS FALL WITH LEFT DISTAL RADIAL FRACTURE HTN HLP UTI FAILURE TO THRIVE ANXIETY/DEPRESSION IV ANTIBIOTICS PER ID FLUIDS O2 BRONCHODLATORS ANTI-ANXIETY MEDS PET SCAN OUTPATIENT WOULD PLAN FOR POST HOSPITAL REHAB CHEST PT DR DAUGHERTY
--- NOTE | 2019-04-13 15:13 | PN ---
Progress Note (short form) - Note Progress Note: Renal follow up for COSME Pt seen and examined at the bedside awake and alert no acute complaints no sob, cp, abd pain, N/V/D making urine Vital Signs Temperature 98.5 F 04/13/19 14:30 Pulse Rate 72 04/13/19 14:30 Respiratory Rate 16 04/13/19 14:30 Blood Pressure 152/53 L 04/13/19 14:30 O2 Sat by Pulse Oximetry (%) 93 L 04/13/19 14:30 Intake & Output 04/10/19 04/11/19 04/12/19 04/13/19 23:59 23:59 23:59 23:59 Intake Total 75 1550 1930 Output Total 0 500 300 Balance 75 1050 1630 Weight 59.33 kg NAD awake and alert neck supple RRR CTA soft NT/ND no LE edema CBC, BMP 04/12/19 07:09 04/13/19 07:13 Current Medications Albuterol Sulfate (Ventolin 0.083% Nebulizer Soln -) 1 amp NEB RQID [facility] Last Admin: 04/13/19 12:27 Dose: 1 amp Alprazolam (Xanax -) 0.5 mg PO TID [facility] Last Admin: 04/13/19 14:24 Dose: 0.5 mg Fenofibric Acid (Trilipix -) 45 mg PO DAILY [facility] Last Admin: 04/13/19 10:20 Dose: 45 mg Heparin Sodium (Porcine) (Heparin -) 5,000 unit SQ BID [facility] Last Admin: 04/13/19 10:16 Dose: 5,000 unit Hydralazine HCl (Apresoline -) 25 mg PO TID [facility] Last Admin: 04/13/19 14:24 Dose: 25 mg Sodium Chloride (Normal Saline -) 1,000 mls @ 75 mls/hr IV ASDIR [facility] Last Admin: 04/11/19 20:35 Dose: 75 mls/hr Ceftriaxone Sodium (Ceftriaxone 1 Gm-D5w Bag) 50 mls @ 100 mls/hr IVPB DAILY [facility]; Protocol Last Admin: 04/13/19 10:18 Dose: 100 mls/hr Nebivolol (Bystolic -) 20 mg PO DAILY [facility] Last Admin: 04/13/19 10:17 Dose: 20 mg Rosuvastatin Calcium (Crestor -) 10 mg PO HS [facility] Last Admin: 04/12/19 21:55 Dose: 10 mg 78 year old woman with history of COPD, hypertension, hyperlipidemia, with recent distal radial fracture who presents with weakness and found to have COSME. #COSME due to volume depletion/pre-renal injury #Weakness #Leukocytosis #Hypertension #Hyperlipidemia Renal function now improving toward normal pt is non-oliguric and without any overt acid/base, electrolyte or volume imbalance. can d/c IVF today and monitor renal function on oral intake alone supplement K Thank you Devon Culver DO
--- NOTE | 2019-04-13 15:25 | CONS ---
INFECTIOUS DISEASE CONSULTATION DATE OF CONSULTATION: DATE OF DICTATION: 04/13/2019 HISTORY OF PRESENT ILLNESS: The patient is a 74-year-old, female who was admitted to the hospital on April 11, 2019, with complaint of generalized weakness. The patient complained of worsening generalized weakness and increasing shortness of breath with exertion while doing household tasks. She also had a cough for the past 3-4 days productive of whitish sputum. She had fallen at home and was assisted by her . She denies any head trauma or loss of consciousness. She has had multiple falls within the past week. She had been evaluated for altered mental status and fall on April 04 and found to have a urinary tract infection treated with Bactrim. She was admitted to the hospital where she was found to have low-grade fever of 99.7 and an elevated white blood cell count of 15.3. At the present time, she is awake and alert. She has no focal complaint at the present time. She denies any chest pain, shortness of breath, cough or sputum production. No complaints of dysuria or hematuria. PAST MEDICAL HISTORY: Positive for COPD, hypertension, hyperlipidemia, recent distal radial fracture. PAST SURGICAL HISTORY: Denies. ALLERGIES: SULFA. SOCIAL HISTORY: Lives at home. Former smoker. MEDICATIONS: Ventolin, Xanax, Keflex, Trilipix, hydrochlorothiazide, Bystolic, Crestor, hydralazine. SYSTEMS REVIEW: Neurologic: Positive for falls. No loss of consciousness, seizure activity or focal weakness. Cardiac: Positive for COPD and recently diagnosed pulmonary nodule versus lymph node. Negative chest pain or palpitations. Respiratory: Denies cough or sputum production. Gastrointestinal: Negative vomiting or diarrhea. Genitourinary: Denies dysuria or hematuria. LABORATORY DATA: White blood cell count on admission 15.3, neutrophils 89, lymphocytes 4, monocytes 5, hematocrit 36.4, platelets 348. BUN 35, creatinine 1.1. Liver enzymes normal. Urinalysis: Negative leukocyte esterase. Blood and urine cultures are pending. IMAGING: Chest x-ray no acute pathology. PHYSICAL EXAMINATION: General: On physical examination, she is awake, and alert, in no acute distress. Vital Signs: Temperature 98.5, T-maximum 99.7, blood pressure 152/53, pulse 72 regular, respirations 16 per minute. Eyes: Sclerae are anicteric. Heart: Heart sounds S1, S2. Lungs: Clear. Abdomen: Soft. No tenderness elicited. No mass, rebound or rigidity. Extremities: Edema 1+. There is a splint present on the left upper extremity. IMPRESSION: 1. Leukocytosis; rule out sepsis. 2. Acute exacerbation chronic obstructive pulmonary disease. 3. Rule out pneumonia. 4. Rule out urinary tract infection. 5. History of lung nodule. 6. History of fall with distal left radial fracture. Await sepsis workup. Continue empiric ceftriaxone 1 g IV piggyback every 24 hours. Pulmonary followup. Will follow. Thank you for the kind referral. MERARI GARCIA M.D. [id number]
[2019-04-13] MEDS ORDERED: POTASSIUM CHLORIDE ORAL LIQUID 20 MEQ/15 ML PO ONE (15:30)
[2019-04-13] MEDS: ROSUVASTATIN CA 10 MG TABLET (FP) PO SCH (22:02)
[2019-04-14] MEDS: ALPRAZolam 0.25 MG TABLET PO SCH ×3 (06:11→21:09)
[2019-04-14] MEDS: hydrALAZINE HCL 25 MG TABLET (FP) PO SCH ×3 (06:11→21:08)
--- NOTE | 2019-04-14 07:44 | PN ---
Progress Note, Physician History of Present Illness: feels better - Current Medication List Current Medications: Active Medications Albuterol Sulfate (Ventolin 0.083% Nebulizer Soln -) 1 amp NEB RQID [facility] Last Admin: 04/13/19 20:28 Dose: 1 amp Alprazolam (Xanax -) 0.5 mg PO TID [facility] Last Admin: 04/14/19 06:11 Dose: 0.5 mg Fenofibric Acid (Trilipix -) 45 mg PO DAILY [facility] Last Admin: 04/13/19 10:20 Dose: 45 mg Heparin Sodium (Porcine) (Heparin -) 5,000 unit SQ BID [facility] Last Admin: 04/13/19 22:02 Dose: 5,000 unit Hydralazine HCl (Apresoline -) 25 mg PO TID [facility] Last Admin: 04/14/19 06:11 Dose: 25 mg Ceftriaxone Sodium (Ceftriaxone 1 Gm-D5w Bag) 50 mls @ 100 mls/hr IVPB DAILY [facility]; Protocol Last Admin: 04/13/19 10:18 Dose: 100 mls/hr Nebivolol (Bystolic -) 20 mg PO DAILY [facility] Last Admin: 04/13/19 10:17 Dose: 20 mg Rosuvastatin Calcium (Crestor -) 10 mg PO HS [facility] Last Admin: 04/13/19 22:02 Dose: 10 mg - Objective Vital Signs: Vital Signs Temperature 98.2 F 04/14/19 06:00 Pulse Rate 82 04/14/19 06:00 Respiratory Rate 17 04/14/19 06:00 Blood Pressure 152/62 04/14/19 06:00 O2 Sat by Pulse Oximetry (%) 95 04/14/19 06:00 Cardiovascular: Yes: Regular Rate and Rhythm Respiratory: Yes: Regular, CTA Bilaterally Gastrointestinal: Yes: Normal Bowel Sounds, Soft Problem List - Problems (1) COSME (acute kidney injury) Assessment/Plan: -Improving fOLLOW LABS IVF RENAL CONSULT Code(s): N17.9 - ACUTE KIDNEY FAILURE, UNSPECIFIED (2) Altered mental status Assessment/Plan: MAYBE DUE TO UTI TREAT AND MONITOR Code(s): R41.82 - ALTERED MENTAL STATUS, UNSPECIFIED Qualifiers: Altered mental status type: unspecified Qualified Code(s): R41.82 - Altered mental status, unspecified (3) COPD (chronic obstructive pulmonary disease) Assessment/Plan: NEBS PULM CONSULT NOTED Code(s): J44.9 - CHRONIC OBSTRUCTIVE PULMONARY DISEASE, UNSPECIFIED (4) Fall Assessment/Plan: PHYSICAL THERAPY Code(s): W19.XXXA - UNSPECIFIED FALL, INITIAL ENCOUNTER (5) HTN (hypertension) Code(s): I10 - ESSENTIAL (PRIMARY) HYPERTENSION (6) UTI (urinary tract infection) Code(s): N39.0 - URINARY TRACT INFECTION, SITE NOT SPECIFIED Qualifiers: Urinary tract infection type: site unspecified Hematuria presence: without hematuria Qualified Code(s): N39.0 - Urinary tract infection, site not specified (7) Wrist fracture Code(s): S62.109A - FRACTURE OF UNSP CARPAL BONE, UNSP WRIST, INIT FOR CLOS FX Qualifiers: Encounter type: initial encounter Fracture type: closed Laterality: left Qualified Code(s): S62.102A - Fracture of unspecified carpal bone, left wrist , initial encounter for closed fracture (8) Lung mass Code(s): R91.8 - OTHER NONSPECIFIC ABNORMAL FINDING OF LUNG FIELD (9) Anemia Assessment/Plan: repeat and follow up Code(s): D64.9 - ANEMIA, UNSPECIFIED
[2019-04-14 07:57] LABS: ALBUMIN 2.5 g/dl (3.4-5.0); BILIRUBIN,TOTAL 0.5 mg/dl (0.2-1); CALCIUM 8.9 mg/dl (8.5-10); POTASSIUM 4.1 mmol/L (3.5-5.1); TOT PROT 6.1 g/dl (6.4-8.2)
[2019-04-14 07:59] LABS: BASO % 0.6 % (0-2.0); EOS % 1.8 % (0-4.5); HEMOGLOBIN 9.8 GM/dl (10.7-15.3); LYMPH % 12.4 % (8-40); MCH 28.8 pg (25.7-33.7); MCHC 33.9 g/dl (32.0-36.0); MEAN CELL VOLUME 84.9 fl (80-96); MEAN PLT VOLUME 8.1 fl (7.5-11.1); MONO % 7.3 % (3.8-10.2); NEUT % 77.9 % (42.8-82.8); PLATELET COUNT 296 K/MM3 (134-434); RBC 3.41 M/mm3 (3.60-5.2); WHITE BLOOD COUNT 8.8 K/mm3 (4.0-10.8)
[2019-04-14] MEDS: ALBUTEROL SO4 0.083% IH SOL 2.5 MG/3 ML VIAL.NEB. NEB SCH ×4 (08:31→21:08)
[2019-04-14] MEDS ORDERED: PT OWN MED DRAWER 7, Y5N ONE ×2 (09:09→21:09)
[2019-04-14] MEDS: NEBIVOLOL 10 MG TABLET (FP) PO SCH (09:25)
[2019-04-14] MEDS: HEPARIN NA (PORCINE) 5,000 UNITS/ML 1ML VIAL SQ SCH ×2 (09:25→21:08)
[2019-04-14] MEDS: CEFTRIAXONE 1 G/50 ML PREMIX 50 ML IVPB SCH (09:25)
[2019-04-14] MEDS: FENOFIBRIC ACID 45 MG CAP PO SCH (09:26)
--- NOTE | 2019-04-14 10:42 | PN ---
Progress Note, Physician History of Present Illness: OOB IN CHAIR NO COMPLAINTS DENIES CHEST PAIN/ DYSPNEA/ COUGH NO C/O DYSURIA NO FEVER/ CHILLS AFEBRILE WBC WNL - Current Medication List Current Medications: Active Medications Albuterol Sulfate (Ventolin 0.083% Nebulizer Soln -) 1 amp NEB RQID [facility] Last Admin: 04/14/19 08:31 Dose: 1 amp Alprazolam (Xanax -) 0.5 mg PO TID [facility] Last Admin: 04/14/19 06:11 Dose: 0.5 mg Fenofibric Acid (Trilipix -) 45 mg PO DAILY [facility] Last Admin: 04/14/19 09:26 Dose: 45 mg Heparin Sodium (Porcine) (Heparin -) 5,000 unit SQ BID [facility] Last Admin: 04/14/19 09:25 Dose: 5,000 unit Hydralazine HCl (Apresoline -) 25 mg PO TID [facility] Last Admin: 04/14/19 06:11 Dose: 25 mg Ceftriaxone Sodium (Ceftriaxone 1 Gm-D5w Bag) 50 mls @ 100 mls/hr IVPB DAILY [facility]; Protocol Last Admin: 04/14/19 09:25 Dose: 100 mls/hr Nebivolol (Bystolic -) 20 mg PO DAILY [facility] Last Admin: 04/14/19 09:25 Dose: 20 mg Rosuvastatin Calcium (Crestor -) 10 mg PO HS [facility] Last Admin: 04/13/19 22:02 Dose: 10 mg - Objective Vital Signs: Vital Signs Temperature 98 F 04/14/19 09:27 Pulse Rate 80 04/14/19 09:27 Respiratory Rate 18 04/14/19 09:27 Blood Pressure 160/75 04/14/19 09:27 O2 Sat by Pulse Oximetry (%) 93 L 04/14/19 09:00 Constitutional: Yes: No Distress Eyes: Yes: Conjunctiva Clear Cardiovascular: Yes: Regular Rate and Rhythm, S1, S2 Respiratory: Yes: CTA Bilaterally Gastrointestinal: Yes: Normal Bowel Sounds, Soft. No: Tenderness Edema: No Labs: CBC, BMP 04/14/19 06:53 04/14/19 06:53 Assessment/Plan ACUTE EXACERBATION COPD ? URI UTI SUBSTITUTE CEFTIN 5O0MG PO BID X7D
--- NOTE | 2019-04-14 11:13 | PN ---
Progress Note, Physician History of Present Illness: PULMONARY ALERT,FEELING BETTER,LESS COUGH - Current Medication List Current Medications: Active Medications Albuterol Sulfate (Ventolin 0.083% Nebulizer Soln -) 1 amp NEB RQID [facility] Last Admin: 04/14/19 08:31 Dose: 1 amp Alprazolam (Xanax -) 0.5 mg PO TID [facility] Last Admin: 04/14/19 06:11 Dose: 0.5 mg Cefuroxime Axetil (Ceftin -) 500 mg PO BID [facility] Fenofibric Acid (Trilipix -) 45 mg PO DAILY [facility] Last Admin: 04/14/19 09:26 Dose: 45 mg Heparin Sodium (Porcine) (Heparin -) 5,000 unit SQ BID [facility] Last Admin: 04/14/19 09:25 Dose: 5,000 unit Hydralazine HCl (Apresoline -) 25 mg PO TID [facility] Last Admin: 04/14/19 06:11 Dose: 25 mg Nebivolol (Bystolic -) 20 mg PO DAILY [facility] Last Admin: 04/14/19 09:25 Dose: 20 mg Rosuvastatin Calcium (Crestor -) 10 mg PO HS [facility] Last Admin: 04/13/19 22:02 Dose: 10 mg - Objective Vital Signs: Vital Signs Temperature 98 F 04/14/19 09:27 Pulse Rate 80 04/14/19 09:27 Respiratory Rate 18 04/14/19 09:27 Blood Pressure 160/75 04/14/19 09:27 O2 Sat by Pulse Oximetry (%) 93 L 04/14/19 09:00 Constitutional: Yes: Calm, Thin Eyes: Yes: WNL HENT: Yes: WNL Neck: Yes: WNL Cardiovascular: Yes: Regular Rate and Rhythm, S1, S2 Respiratory: Yes: Rhonchi (LESS RHONCHI BILATERALLY) Gastrointestinal: Yes: Normal Bowel Sounds, Soft Extremities: Yes: WNL Edema: No Labs: CBC, BMP 04/14/19 06:53 04/14/19 06:53 Assessment/Plan Problem List - Problems (1) COSME (acute kidney injury) Code(s): N17.9 - ACUTE KIDNEY FAILURE, UNSPECIFIED (2) COPD (chronic obstructive pulmonary disease) Code(s): J44.9 - CHRONIC OBSTRUCTIVE PULMONARY DISEASE, UNSPECIFIED (3) Fall Code(s): W19.XXXA - UNSPECIFIED FALL, INITIAL ENCOUNTER (4) HTN (hypertension) Code(s): I10 - ESSENTIAL (PRIMARY) HYPERTENSION (5) Cast discomfort Code(s): Z47.89 - ENCOUNTER FOR OTHER ORTHOPEDIC AFTERCARE Assessment/Plan COPD LUNG NODULE/MASS VC PARALYSIS FALL WITH LEFT DISTAL RADIAL FRACTURE HTN HLP UTI FAILURE TO THRIVE ANXIETY/DEPRESSION CEFTIN O2 BRONCHODILATORS ANTI-ANXIETY MEDS PET SCAN OUTPATIENT WOULD PLAN FOR POST HOSPITAL REHAB CHEST PT DR DAUGHERTY
[2019-04-14] MEDS: ROSUVASTATIN CA 10 MG TABLET (FP) PO SCH (21:08)
[2019-04-14] MEDS: CEFUROXIME AXETIL 500 MG TABLET PO SCH (21:10)
[2019-04-15] MEDS: hydrALAZINE HCL 25 MG TABLET (FP) PO SCH (06:52)
[2019-04-15] MEDS: ALPRAZolam 0.25 MG TABLET PO SCH (06:52)
--- NOTE | 2019-04-15 07:08 | PN ---
Progress Note, Physician History of Present Illness: pulmonary alert,comfortable,-resp distress - Current Medication List Current Medications: Active Medications Albuterol Sulfate (Ventolin 0.083% Nebulizer Soln -) 1 amp NEB RQID [facility] Last Admin: 04/14/19 21:08 Dose: 1 amp Alprazolam (Xanax -) 0.5 mg PO TID [facility] Last Admin: 04/15/19 06:52 Dose: 0.5 mg Cefuroxime Axetil (Ceftin -) 500 mg PO BID [facility] Last Admin: 04/14/19 21:10 Dose: 500 mg Fenofibric Acid (Trilipix -) 45 mg PO DAILY [facility] Last Admin: 04/14/19 09:26 Dose: 45 mg Heparin Sodium (Porcine) (Heparin -) 5,000 unit SQ BID [facility] Last Admin: 04/14/19 21:08 Dose: 5,000 unit Hydralazine HCl (Apresoline -) 25 mg PO TID [facility] Last Admin: 04/15/19 06:52 Dose: 25 mg Nebivolol (Bystolic -) 20 mg PO DAILY [facility] Last Admin: 04/14/19 09:25 Dose: 20 mg Rosuvastatin Calcium (Crestor -) 10 mg PO HS [facility] Last Admin: 04/14/19 21:08 Dose: 10 mg - Objective Vital Signs: Vital Signs Temperature 98.8 F 04/15/19 06:00 Pulse Rate 85 04/15/19 06:00 Respiratory Rate 19 04/15/19 06:00 Blood Pressure 159/73 04/15/19 06:00 O2 Sat by Pulse Oximetry (%) 93 L 04/15/19 06:56 Constitutional: Yes: Calm, Thin Eyes: Yes: WNL HENT: Yes: WNL Neck: Yes: WNL Cardiovascular: Yes: Regular Rate and Rhythm, S1, S2 Respiratory: Yes: Rhonchi (few scattered rhonchi) Gastrointestinal: Yes: Normal Bowel Sounds, Soft Extremities: Yes: WNL Edema: No Labs: CBC, BMP 04/14/19 06:53 04/14/19 06:53 Assessment/Plan Problem List - Problems (1) COSME (acute kidney injury) Code(s): N17.9 - ACUTE KIDNEY FAILURE, UNSPECIFIED (2) COPD (chronic obstructive pulmonary disease) Code(s): J44.9 - CHRONIC OBSTRUCTIVE PULMONARY DISEASE, UNSPECIFIED (3) Fall Code(s): W19.XXXA - UNSPECIFIED FALL, INITIAL ENCOUNTER (4) HTN (hypertension) Code(s): I10 - ESSENTIAL (PRIMARY) HYPERTENSION (5) Cast discomfort Code(s): Z47.89 - ENCOUNTER FOR OTHER ORTHOPEDIC AFTERCARE Assessment/Plan COPD LUNG NODULE/MASS VC PARALYSIS FALL WITH LEFT DISTAL RADIAL FRACTURE HTN HLP UTI FAILURE TO THRIVE ANXIETY/DEPRESSION CEFTIN O2 BRONCHODILATORS ANTI-ANXIETY MEDS PET SCAN OUTPATIENT CHEST PT DR DAUGHERTY
[2019-04-15 07:32] LABS: BASO % 0.3 % (0-2.0); EOS % 1.2 % (0-4.5); HEMATOCRIT 29.4 % (32.4-45.2); MCH 28.9 pg (25.7-33.7); MEAN CELL VOLUME 85.1 fl (80-96); MEAN PLT VOLUME 7.4 fl (7.5-11.1); MONO % 6.4 % (3.8-10.2); NEUT % 81.1 % (42.8-82.8); PLATELET COUNT 314 K/MM3 (134-434); RBC 3.45 M/mm3 (3.60-5.2); WHITE BLOOD COUNT 10.1 K/mm3 (4.0-10.8)
--- NOTE | 2019-04-15 07:34 | PN ---
Progress Note, Physician History of Present Illness: feels better chronic cough - Current Medication List Current Medications: Active Medications Albuterol Sulfate (Ventolin 0.083% Nebulizer Soln -) 1 amp NEB RQID [facility] Last Admin: 04/14/19 21:08 Dose: 1 amp Alprazolam (Xanax -) 0.5 mg PO TID [facility] Last Admin: 04/15/19 06:52 Dose: 0.5 mg Cefuroxime Axetil (Ceftin -) 500 mg PO BID [facility] Last Admin: 04/14/19 21:10 Dose: 500 mg Fenofibric Acid (Trilipix -) 45 mg PO DAILY [facility] Last Admin: 04/14/19 09:26 Dose: 45 mg Heparin Sodium (Porcine) (Heparin -) 5,000 unit SQ BID [facility] Last Admin: 04/14/19 21:08 Dose: 5,000 unit Hydralazine HCl (Apresoline -) 25 mg PO TID [facility] Last Admin: 04/15/19 06:52 Dose: 25 mg Nebivolol (Bystolic -) 20 mg PO DAILY [facility] Last Admin: 04/14/19 09:25 Dose: 20 mg Rosuvastatin Calcium (Crestor -) 10 mg PO HS [facility] Last Admin: 04/14/19 21:08 Dose: 10 mg - Objective Vital Signs: Vital Signs Temperature 98.8 F 04/15/19 06:00 Pulse Rate 85 04/15/19 06:00 Respiratory Rate 19 04/15/19 06:00 Blood Pressure 159/73 04/15/19 06:00 O2 Sat by Pulse Oximetry (%) 93 L 04/15/19 06:56 Cardiovascular: Yes: S1, S2 Respiratory: Yes: On Nasal O2, Rhonchi Gastrointestinal: Yes: Normal Bowel Sounds, Soft Labs: CBC, BMP 04/14/19 06:53 Problem List - Problems (1) COSME (acute kidney injury) Assessment/Plan: -Improving fOLLOW LABS RENAL CONSULT NOTED Code(s): N17.9 - ACUTE KIDNEY FAILURE, UNSPECIFIED (2) Altered mental status Assessment/Plan: RESOLVED MAYBE DUE TO UTI TREAT AND MONITOR Code(s): R41.82 - ALTERED MENTAL STATUS, UNSPECIFIED Qualifiers: Altered mental status type: unspecified Qualified Code(s): R41.82 - Altered mental status, unspecified (3) COPD (chronic obstructive pulmonary disease) Assessment/Plan: NEBS PULM CONSULT NOTED Code(s): J44.9 - CHRONIC OBSTRUCTIVE PULMONARY DISEASE, UNSPECIFIED (4) Fall Assessment/Plan: PHYSICAL THERAPY Code(s): W19.XXXA - UNSPECIFIED FALL, INITIAL ENCOUNTER (5) HTN (hypertension) Assessment/Plan: MONITOR ON MEDS Code(s): I10 - ESSENTIAL (PRIMARY) HYPERTENSION (6) UTI (urinary tract infection) Assessment/Plan: ABX CULTURES ID CONSULT Code(s): N39.0 - URINARY TRACT INFECTION, SITE NOT SPECIFIED Qualifiers: Urinary tract infection type: site unspecified Hematuria presence: without hematuria Qualified Code(s): N39.0 - Urinary tract infection, site not specified (7) Wrist fracture Assessment/Plan: ORTHO CONSULT Code(s): S62.109A - FRACTURE OF UNSP CARPAL BONE, UNSP WRIST, INIT FOR CLOS FX Qualifiers: Encounter type: initial encounter Fracture type: closed Laterality: left Qualified Code(s): S62.102A - Fracture of unspecified carpal bone, left wrist , initial encounter for closed fracture (8) Lung mass Assessment/Plan: PET OUTPATIENT Code(s): R91.8 - OTHER NONSPECIFIC ABNORMAL FINDING OF LUNG FIELD (9) Anemia Assessment/Plan: repeat and follow up Code(s): D64.9 - ANEMIA, UNSPECIFIED
--- NOTE | 2019-04-15 08:24 | DS ---
Physical Examination Vital Signs: Vital Signs Temperature 98.8 F 04/15/19 06:00 Pulse Rate 85 04/15/19 06:00 Respiratory Rate 19 04/15/19 06:00 Blood Pressure 159/73 04/15/19 06:00 O2 Sat by Pulse Oximetry (%) 93 L 04/15/19 06:56 Labs: CBC, BMP 04/15/19 07:15 04/14/19 06:53 Discharge Summary Reason For Visit: ACUTE KIDNEY INJURY/ ALTERED MENTAL STATUS Current Active Problems COSME (acute kidney injury) (Acute) Altered mental status (Acute) Anemia (Acute) Anxiety (Acute) COPD (chronic obstructive pulmonary disease) (Acute) Fall (Acute) HLD (hyperlipidemia) (Acute) HTN (hypertension) (Acute) Lung mass (Acute) Condition: Stable - Instructions Diet, Activity, Other Instructions: FOLLOW UP LABS ONE WEEK Referrals: Bob Montgomery MD [Primary Care Provider] - Disposition: [facility] - Home Medications Comprehensive Discharge Medication List: Ambulatory Orders Albuterol Sulfate Inhaler - [Ventolin HFA Inhaler -] 1 - 2 inh PO QID 04/04/19 Alprazolam [Xanax] 0.5 mg PO PRN PRN 04/04/19 Fenofibric Acid [Trilipix -] 45 mg PO DAILY 04/04/19 Nebivolol HCl [Bystolic] 20 mg PO DAILY 04/04/19 Rosuvastatin [Crestor -] 10 mg PO DAILY 04/04/19 Hydralazine HCl 25 mg PO TID 04/11/19 Albuterol 2.5/Ipratropium 0.5 [Duoneb -] 1 neb IH QID #120 vial.neb. 04/15/19 Cefuroxime Axetil [Ceftin -] 500 mg PO BID tablet 04/15/19
[2019-04-15] MEDS: ALBUTEROL SO4 0.083% IH SOL 2.5 MG/3 ML VIAL.NEB. NEB SCH (08:30)
[2019-04-15 09:03] VITALS: BP 149/70; PULSE 86; TEMP 98.4
[2019-04-15] MEDS ORDERED: PT OWN MED DRAWER 7, Y5N ONE (09:51)
[2019-04-15] MEDS: FENOFIBRIC ACID 45 MG CAP PO SCH (10:03)
[2019-04-15] MEDS: NEBIVOLOL 10 MG TABLET (FP) PO SCH (10:03)
[2019-04-15] MEDS: CEFUROXIME AXETIL 500 MG TABLET PO SCH (10:03)
[2019-04-15] MEDS: HEPARIN NA (PORCINE) 5,000 UNITS/ML 1ML VIAL SQ SCH (10:03)
--- NOTE | 2019-04-15 11:49 | PN ---
Progress Note (short form) - Note Progress Note: Renal follow up for COSME Pt seen and examined at the bedside awake and alert no acute complaints Vital Signs Temperature 98.4 F 04/15/19 09:02 Pulse Rate 86 04/15/19 09:02 Respiratory Rate 18 04/15/19 09:02 Blood Pressure 149/70 04/15/19 09:02 O2 Sat by Pulse Oximetry (%) 96 04/15/19 09:00 Intake & Output 04/12/19 04/13/19 04/14/19 04/15/19 23:59 23:59 23:59 23:59 Intake Total 1550 2230 1365 350 Output Total 500 300 Balance 1050 1930 1365 350 NAD awake and alert neck supple RRR CTA soft NT/ND no LE edema CBC, BMP 04/15/19 07:15 04/14/19 06:53 Current Medications Albuterol Sulfate (Ventolin 0.083% Nebulizer Soln -) 1 amp NEB RQID [facility] Last Admin: 04/15/19 08:30 Dose: 1 amp Alprazolam (Xanax -) 0.5 mg PO TID [facility] Last Admin: 04/15/19 06:52 Dose: 0.5 mg Cefuroxime Axetil (Ceftin -) 500 mg PO BID [facility] Last Admin: 04/15/19 10:03 Dose: 500 mg Fenofibric Acid (Trilipix -) 45 mg PO DAILY [facility] Last Admin: 04/15/19 10:03 Dose: 45 mg Heparin Sodium (Porcine) (Heparin -) 5,000 unit SQ BID [facility] Last Admin: 04/15/19 10:03 Dose: 5,000 unit Hydralazine HCl (Apresoline -) 25 mg PO TID [facility] Last Admin: 04/15/19 06:52 Dose: 25 mg Nebivolol (Bystolic -) 20 mg PO DAILY [facility] Last Admin: 04/15/19 10:03 Dose: 20 mg Rosuvastatin Calcium (Crestor -) 10 mg PO HS [facility] Last Admin: 04/14/19 21:08 Dose: 10 mg 78 year old woman with history of COPD, hypertension, hyperlipidemia, with recent distal radial fracture who presents with weakness and found to have COSME. #COSME due to volume depletion/pre-renal injury #Weakness #Leukocytosis #Hypertension #Hyperlipidemia Renal function now improved to normal no contraindication to discharge advised pt to maintain good oral hydration should follow up with PMD in 1 week and have repeat labs done discharge planning as per primary Thank you Devon Culver DO
== END 2019-04-15 12:48 | DRG 682 ==
LOC: SUPCPDRO 12:37 → FER 12:37 → FM/S 16:51
PROVIDERS: ADMIT Family Medicine; ATTEND Family Medicine
DX: N17.9 Acute kidney failure, unspecified (principal); G93.41 Metabolic encephalopathy; N39.0 Urinary tract infection, site not specified; J44.1 Chronic obstructive pulmonary disease with (acute) exacerbation; I10 Essential (primary) hypertension; E78.5 Hyperlipidemia, unspecified; F17.210 Nicotine dependence, cigarettes, uncomplicated; F41.9 Anxiety disorder, unspecified; R29.6 Repeated falls; E86.0 Dehydration; R91.1 Solitary pulmonary nodule; R62.7 Adult failure to thrive; Z68.23 Body mass index [BMI] 23.0-23.9, adult; F32.9 Major depressive disorder, single episode, unspecified; S52.592D Other fractures of lower end of left radius, subsequent encounter for closed fracture with routine healing; X58.XXXD Exposure to other specified factors, subsequent encounter; Y92.89 Other specified places as the place of occurrence of the external cause
CPT/HCPCS: 36415; 70450-TC; 71045-TC-FY; 80048; 80053; 81003; 81015; 82550; 82565; 82728; 83540; 83550; 83605; 83735; 84100; 84156; 84300; 84443; 84484; 85025; 85027; 87040; 87086; 87205; 93005; 94640; 97116-GP; 99283-25; 99285-25; J1644; J7030

== ENCOUNTER 2019-04-15 20:24 | Inpatient (IN) | payer OTHER ==
--- NOTE | 2019-04-15 20:57 | PDOC ---
History of Present Illness - General Stated Complaint: WEAKNESS Time Seen by Provider: 04/15/19 20:29 - History of Present Illness Initial Comments: 04/15/19 21:03 74 y/o F with hx of HTN, HLD, Anxiety, COPD presenting to the ED with weakness which began this a.m. She was discharged from [facility] after admission for same complaint and treatment for UTI. Was discharged with improved mental status and ability to walk. This is her third episode in 3 wks.She was treated for dehydration during the first incident, and sent home the same day. The weakness is primarily in her legs, intermittent, with no relieving or exacerbating factors. Hx was obtained with the aid of and daughter at the bedside. She denied any headache, vision changes, shortness of breath, nausea, vomiting, chest pain, back pain or new appearing rash. 04/15/19 21:35 Past History - Past Medical History Allergies/Adverse Reactions: Allergies Allergy/AdvReac Type Severity Reaction Status Date / Time sulfur [From Sulfur-8] Allergy Verified 04/15/19 20:40 Home Medications: Ambulatory Orders Albuterol Sulfate Inhaler - [Ventolin HFA Inhaler -] 1 - 2 inh PO QID 04/04/19 Alprazolam [Xanax] 0.5 mg PO PRN PRN 04/04/19 Fenofibric Acid [Trilipix -] 45 mg PO DAILY 04/04/19 Nebivolol HCl [Bystolic] 20 mg PO DAILY 04/04/19 Rosuvastatin [Crestor -] 10 mg PO DAILY 04/04/19 Hydralazine HCl 25 mg PO TID 04/11/19 Albuterol 2.5/Ipratropium 0.5 [Duoneb -] 1 amp NEB Q4H PRN #1 box 04/15/19 COPD: No HTN: Yes Hypercholesterolemia: Yes Psychiatric Problems: Yes (anxiety) Lung CA: (ANXIETY) - Suicide/Smoking/Psychosocial Hx Smoking History: Current every day smoker Have you smoked in the past 12 months: Yes Number of Cigarettes Smoked Daily: 10 If you are a former smoker, when did you quit?: Two weeks ago 'Breaking Loose' booklet given: 11/02/17 Hx Alcohol Use: No Drug/Substance Use Hx: No Substance Use Type: None Review of Systems - Review of Systems Able to Perform ROS?: No Comments:: 04/15/19 21:35 pt. confused All Other Systems: Reviewed and Negative *Physical Exam - Physical Exam General Appearance: Yes: Nourished, Appropriately Dressed. No: Apparent Distress HEENT: positive: EOMI, Muffled/Hoarse voice. negative: Normal Voice (soft voice ) Neck: positive: Trachea midline, Supple Respiratory/Chest: positive: Crackles, Wheezing. negative: Chest Tender, Respiratory Distress, Accessory Muscle Use Cardiovascular: positive: Regular Rhythm, Regular Rate, S1, S2. negative: Edema , JVD, Murmur Vascular Pulses: Dorsalis-Pedis (R): 2+, Doralis-Pedis (L): 2+ Gastrointestinal/Abdominal: positive: Normal Bowel Sounds, Soft, Guarding, Tenderness, Other (tenderness and guarding in RLQ) Musculoskeletal: positive: Normal Inspection, Other. negative: CVA Tenderness Extremity: positive: Normal Inspection, Normal Range of Motion, Other (left hand in splint from previous fracture). negative: Coldness, Cyanosis, Pedal Edema, Swelling, Calf Tenderness Integumentary: positive: Normal Color, Dry, Warm Neurologic: positive: dining room host II-XII NML intact, Alert, Respond to painful stimul, Responsive, Other (alert and oriented to person. but not to place and time. ). negative: Fully Oriented, Numbness ED Treatment Course - LABORATORY CBC & Chemistry Diagram: 04/15/19 21:00 04/15/19 21:00 Medical Decision Making - Medical Decision Making 04/15/19 21:39 74 y/o F with hx of HTN, HLD, Anxiety, COPD presenting to the ED with weakness which began this a.m. Ddx: ACS vs UTI vs other infection vs hematoma 04/15/19 21:48 EKG sinus rhythm with first degree AV block anterior infarct age undetermined. -Duonebs given to improve breathing. Elevated white count on cbc. Awaiting results of ct abdomen & pelvis, chest and head Head CT findings - No evidence of aacute intracranial hemorrhage. cho -Chronic ischemic small vessel disease -no appreciable hydrocephalus. -Possible permaetive somewhat destructive appearance suggested of the inferior right temporal bone. further evaluation recommended with contrast-enhanced MRI Chest Ct Trace to samll bilateral pleural effusions with bibasilar atelactasis and infiltrates Abdomen and Pelvis CT no evidence of intestinal obstruction, perforation, colitis, free fluid or intra abdominal or pelvic abscess. sigmoid diveritculosis without evidence of acute diverticulitis - Pt given vanc 1gm and zosyn 4.[address] findings suggestive of pneumonia -Admitting service for Dr. Montgomery *DC/Admit/Observation/Transfer Diagnosis at time of Disposition: Pneumonia Qualifiers: Pneumonia type: due to unspecified organism - Discharge Dispostion Condition at time of disposition: Guarded Decision to Admit order: Yes - Referrals Referrals: Bob Montgomery MD [Primary Care Provider] - - Patient Instructions - Post Discharge Activity
[2019-04-15] MEDS ORDERED: ALBUTEROL SO4 2.5/IPRATROPIUM 0.5 INH SOL 3 ML VIAL.NEB. NEB ONE ×3 (21:24→21:36)
[2019-04-15] MEDS ORDERED: SODIUM CHLORIDE 0.9% 1000 ML INFUS.BAG IV ONE (21:24)
--- NOTE | 2019-04-15 21:34 | PDOC ---
Documentation entered by Pretty Espinoza SCRIBE, acting as scribe for Coretta Casiano DO. Coretta Casiano DO: This documentation has been prepared by the Alexis elmore Xhesika, SCRIBE, under my direction and personally reviewed by me in its entirety. I confirm that the documentation accurately reflects all work, treatment, procedures, and medical decision making performed by me. Attending Attestation - Resident Resident Name: Seven Marley - ED Attending Attestation I have performed the following: I have examined & evaluated the patient, The case was reviewed & discussed with the resident, I agree w/resident's findings & plan, Exceptions are as noted - HPI HPI: 04/15/19 21:26 The patient is a 74 year old female with a significant PMH of HTN, HLD, COPD, recent left distal radial fracture (04/04/19) who presents to the emergency department with generalized weakness. The patient states this is her 3rd episode in the past week. Pt was seen and admitted at [place] ED, treated for UTI (on cephalexin) and discharged this morning. The patient states when she came home her legs felt weak and was unable to ambulate. Patient states she has been endorsing SOB on exertion and cough with white and brown sputum production, however, that is due to her COPD and she recently stopped smoking 10 days ago. As per daughter the patient is not on any home O2. The patient denies chest pain, headache and dizziness. Denies fever, chills, nausea, vomiting, diarrhea and constipation. Denies dysuria, frequency, urgency and hematuria. Allergies: Sulfa Medications Social history: 1 ppd tobacco use for 25 years, wuit 10 days ago. Denies Etoh, IVDA PCP: Dr. Montgomery - Physicial Exam PE: 04/15/19 21:28 GENERAL: Awake, alert, and oriented to person and time. (+) altered to place. (+ ) lethargic.(+) soft spoken. HEAD: No signs of trauma EYES: PERRLA, EOMI, sclera anicteric, conjunctiva clear ENT: Auricles normal inspection, hearing grossly normal, nares patent, oropharynx clear without exudates. (+)dry mucosa NECK: Normal ROM, supple, no lymphadenopathy, JVD, or masses LUNGS: Breath sounds equal, clear to auscultation bilaterally. (+) wheezing L > R. HEART: Regular rate and rhythm, normal S1 and S2, no murmurs, rubs or gallops ABDOMEN: Soft, nontender, normoactive bowel sounds. No guarding, no rebound. No masses EXTREMITIES: Normal range of motion, no edema. No clubbing or cyanosis. No cords, erythema, or tenderness NEUROLOGICAL: Cranial nerves II through XII grossly intact. SKIN: Warm, Dry, normal turgor, no rashes or lesions noted. - Medical Decision Making 04/15/19 21:29 I, Dr. Coretta Casiano, DO, attest that this document has been prepared under my direction and personally reviewed by me in its entirety. I further attest, that it accurately reflects all work, treatment, procedures and medical decision -making performed by me. 04/15/19 21:29 a/p: 74yo female with generalized weakness and altered ms -pt awake, alert to person, time - altered to place - was dc from [facility] this AM , but thought she was at [facility] this AM and currently at [facility] -pt denies cp, c/o sob - recently dx with COPD from Dr. 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 -will send labs, ekg, cxr, head ct -pt with mild RLQ ttp on exam, no rebound or guarding -will monitor and reassess 04/15/19 23:39 elevated wbc increased from 10-14 today now with a shift cxr shows poss infiltrate b/l bases ct chest ordered pending ct imaging ua without acute uti, but currently on abx 04/16/19 00:[address] without acute findings small vessel disease poss permeative, destructive changes to the inferior right temporal bone 04/16/19 01:14 poss pna on chest ct 04/16/19 01:15 pleural effusion on chest ct no acute intraabd findings will start broad spectrum abx will need admission 04/16/19 01:32 resident discussed the case with [facility] covering fro dr. jim vogt admits overnight who accepts pt to service Heart Score/ECG Review - ECG Intrepretation Comment:: 04/15/19 21:37 sinus at 86 with 1st degree av block, nl axis, t wave inversions anterior leads with mild st depressions, st depressions lateral leads, abnl ekg
[2019-04-15 21:40] LABS: BASO % 0.4 % (0-2.0); EOS % 0.1 % (0-4.5); HEMOGLOBIN 10.1 GM/dL (10.7-15.3); LYMPH % 5.3 % (8-40); MCH 27.6 pg (25.7-33.7); MCHC 32.8 g/dl (32.0-36.0); MEAN CELL VOLUME 84.3 fl (80-96); MONO % 5.8 % (3.8-10.2); NEUT % 88.4 % (42.8-82.8); PLATELET COUNT 325 K/MM3 (134-434); RBC 3.68 M/mm3 (3.60-5.2); WHITE BLOOD COUNT 14.7 K/mm3 (4.0-10.0)
[2019-04-15 22:00] LABS: INR 1.24 (0.83-1.09); PROTHROMBIN TIME (PATIENT) 14.7 SEC (9.7-13.0)
[2019-04-15 22:29] LABS: ALBUMIN 2.6 g/dl (3.4-5.0); ALK PHOS 60 U/L (45-117); ANION GAP 9 MMOL/L (8-16); BILIRUBIN,TOTAL 0.4 mg/dL (0.2-1); BLOOD UREA NITROGEN 21.9 mg/dL (7-18); CALCIUM 9.4 mg/dL (8.5-10.1); CHLORIDE 104 mmol/L (98-107); CO2 25 mmol/L (21-32); CREATININE 1.1 mg/dL (0.55-1.3); GLUCOSE,RANDOM 105 mg/dL (74-106); POTASSIUM 4.3 mmol/L (3.5-5.1); SGOT/AST 14 U/L (15-37); SGPT/ALT 15 U/L (13-61); SODIUM 138 mmol/L (136-145); TOT PROT 6.5 g/dl (6.4-8.2)
[2019-04-15 22:29] LABS: EPI CELLS 8.2 /HPF (0-5/HPF); HYALINE CASTS 28 /lpf (0-8); URINE APPEARANCE CLEAR; URINE BACTERIA 0.8 /hpf (NEGATIVE); URINE BILIRUBIN NEGATIVE (NEGATIVE); URINE COLOR YELLOW; URINE GLUCOSE (UA) NEGATIVE (NEGATIVE); URINE KETONE TRACE (NEGATIVE); URINE LEUK ESTERASE NEGATIVE (NEGATIVE); URINE NITRITE NEGATIVE (NEGATIVE); URINE PROTEIN 3+ (NEGATIVE); URINE RBC 1 /hpf (0-4); URINE UROBILINOGEN 0.2 mg/dL (0.2-1.0); URINE WBC 1 /hpf (0-5)
[2019-04-16] MEDS ORDERED: VANCOMYCIN 1 GM in D5W (PRE-DOCKED) 1,000 MG/250 ML IVPB ONE (01:05)
[2019-04-16] MEDS ORDERED: PIPERACILLIN/TAZOB 4.5 GM 4.5 GM in DEXTROSE 5%-WATER 100 ML IVPB ONE (01:05)
[2019-04-16] MEDS ORDERED: VANCOMYCIN 1 GRAM (PRE-DOCKED) 1,000 MG/250 ML BAG IVPB ONE (01:31)
[2019-04-16] MEDS ORDERED: PIPERACILLIN/TAZOB 4.5 GM 4.5 GM/100 ML BAG IVPB ONE (01:31)
--- NOTE | 2019-04-16 02:27 | HP ---
CHIEF COMPLAINT: weakness, difficulty with ambulation PCP: Dr. Crespo HISTORY OF PRESENT ILLNESS: 74 year old female with PMHx of HTN, HLD, Anxiety, COPD recent left distal radial fracture (04/04/19) arrived to ED with weakness (b/l legs, intermittent, with no relieving or exacerbating factors) and difficulty ambulating. This is the 3rd episode in the past week as per family. Patient was discharged on 04/15/2019 from [place] for same complaint and treatment for UTI. Prior to discharge patient had improved mental state and was able to ambulate as per daughters. The first incident, patient was sent home the same day after being treated for dehydration. Patient denies headache, vision changes, nausea, vomiting, chest pain ER course was notable for: EKG; sinus rhythm with first degree AV block (1)cxr shows poss infiltrate b/l bases chest ct: Trace to samll bilateral pleural effusions with bibasilar atelactasis and infiltrates (2)head ct :without acute findings abd/pelvic ct: no evidence of intestinal obstruction, perforation, colitis, free fluid or intra abdominal or pelvic abscess. (3) given vanco and zosyn x1, duoneb tx Recent Travel:no PAST MEDICAL HISTORY: HTN, HLD, Anxiety PAST SURGICAL HISTORY: no significant history Social History: Smoking:quite 2 weeks ago ( h/o of 10 cigarettes a day) Alcohol: No Drugs: No Family History: no pertinent history Allergies: sulfur [From Sulfur-8] Allergy (Verified 04/15/19 20:40) HOME MEDICATIONS: Home Medications Medication Instructions Recorded Albuterol Sulfate Inhaler - 1 - 2 inh PO QID 04/04/19 [Ventolin HFA Inhaler -] Alprazolam [Xanax] 0.5 mg PO PRN PRN 04/04/19 Fenofibric Acid [Trilipix -] 45 mg PO DAILY 04/04/19 Nebivolol HCl [Bystolic] 20 mg PO DAILY 04/04/19 Rosuvastatin [Crestor -] 10 mg PO DAILY 04/04/19 Hydralazine HCl 25 mg PO TID 04/11/19 Albuterol 2.5/Ipratropium 0.5 1 amp NEB Q4H PRN #1 box 04/15/19 [Duoneb -] REVIEW OF SYSTEMS CONSTITUTIONAL: + generalized weakness HEENT: Absent: rhinorrhea, nasal congestion, throat pain, throat swelling, difficulty swallowing, mouth swelling, ear pain, eye pain, visual changes CARDIOVASCULAR: Absent: chest pain, syncope, palpitations, irregular heart rate , lightheadedness, peripheral edema RESPIRATORY: +cough, wheezing Absent: shortness of breath, dyspnea with exertion, orthopnea, stridor, hemoptysis GASTROINTESTINAL: Absent: abdominal pain, abdominal distension, nausea, vomiting , diarrhea, constipation, melena, hematochezia GENITOURINARY: Absent: dysuria, frequency, urgency, hesitancy, hematuria, flank pain, genital pain MUSCULOSKELETAL: Absent: myalgia, arthralgia, joint swelling, back pain, neck pain SKIN: Absent: rash, itching, pallor NEUROLOGIC: Absent: headache, focal weakness or paresthesias, dizziness, unsteady gait, seizure, mental status changes, bladder or bowel incontinence PSYCHIATRIC: Absent: anxiety, depression, suicidal or homicidal ideation, hallucinations. PHYSICAL EXAMINATION Vital Signs - 24 hr 04/15/19 04/16/19 20:30 01:16 Temperature 98.5 F Pulse Rate 90 Pulse Rate [ 85 Right Radial] Respiratory 18 20 Rate Blood Pressure 136/80 Blood Pressure 152/88 [Left Arm] O2 Sat by Pulse 95 95 Oximetry (%) GENERAL: Awake, alert, + chronic cough/slight congestion HEENT: NC/AT, EOMI, PERRLA, No JVD LUNGS: Breath sounds equal, + wheezing/ crackles b/l HEART: Regular rate and rhythm, normal S1 and S2 without murmur, rub or gallop. ABDOMEN: Soft, nontender, not distended, normoactive bowel sounds, no guarding, no rebound, no masses. MUSCULOSKELETAL: Normal range of motion at all joints. No bony deformities or tenderness. No CVA tenderness. NEUROLOGICAL: Cranial nerves II-XII intact. Normal speech. Normal gait. PSYCHIATRIC: Cooperative. Good eye contact. Appropriate mood and affect. SKIN: Warm, dry, normal turgor Laboratory Results - last 24 hr 04/15/19 04/15/19 04/15/19 21:00 21:00 21:00 WBC 14.7 H RBC 3.68 Hgb 10.1 L Hct 31.0 L D MCV 84.3 MCH 27.6 MCHC 32.8 RDW 16.0 H Plt Count 325 MPV 7.0 L Absolute Neuts (auto) 13.0 H Neutrophils % 88.4 H Lymphocytes % 5.3 L Monocytes % 5.8 Eosinophils % 0.1 Basophils % 0.4 Nucleated RBC % 0 PT with INR INR PTT (Actin FS) Sodium 138 Potassium 4.3 Chloride 104 Carbon Dioxide 25 Anion Gap 9 BUN 21.9 H Creatinine 1.1 Est GFR (CKD-EPI)AfAm 57.68 Est GFR (CKD-EPI)NonAf 49.77 Random Glucose 105 Lactic Acid Calcium 9.4 Magnesium 2.1 Total Bilirubin 0.4 AST 14 L ALT 15 Alkaline Phosphatase 60 Creatine Kinase 35 Troponin I < 0.02 Total Protein 6.5 Albumin 2.6 L TSH Urine Color Urine Appearance Urine pH Ur Specific [place] Urine Protein Urine Glucose (UA) Urine Ketones Urine Blood Urine Nitrite Urine Bilirubin Urine Urobilinogen Ur Leukocyte Esterase Urine WBC (Auto) Urine RBC (Auto) Urine Casts (Auto) U Epithel Cells (Auto) Urine Bacteria (Auto) 04/15/19 04/15/19 04/15/19 21:00 21:00 21:00 WBC RBC Hgb Hct MCV MCH MCHC RDW Plt Count MPV Absolute Neuts (auto) Neutrophils % Lymphocytes % Monocytes % Eosinophils % Basophils % Nucleated RBC % PT with INR 14.70 H INR 1.24 H PTT (Actin FS) 36.9 H Sodium Potassium Chloride Carbon Dioxide Anion Gap BUN Creatinine Est GFR (CKD-EPI)AfAm Est GFR (CKD-EPI)NonAf Random Glucose Lactic Acid Calcium Magnesium Total Bilirubin AST ALT Alkaline Phosphatase Creatine Kinase Troponin I Total Protein Albumin TSH 0.77 Urine Color Urine Appearance Urine pH Ur Specific [place] Urine Protein Urine Glucose (UA) Urine Ketones Urine Blood Urine Nitrite Urine Bilirubin Urine Urobilinogen Ur Leukocyte Esterase Urine WBC (Auto) Urine RBC (Auto) Urine Casts (Auto) U Epithel Cells (Auto) Urine Bacteria (Auto) 04/15/19 04/15/19 21:23 21:47 WBC RBC Hgb Hct MCV MCH MCHC RDW Plt Count MPV Absolute Neuts (auto) Neutrophils % Lymphocytes % Monocytes % Eosinophils % Basophils % Nucleated RBC % PT with INR INR PTT (Actin FS) Sodium Potassium Chloride Carbon Dioxide Anion Gap BUN Creatinine Est GFR (CKD-EPI)AfAm Est GFR (CKD-EPI)NonAf Random Glucose Lactic Acid 0.8 Calcium Magnesium Total Bilirubin AST ALT Alkaline Phosphatase Creatine Kinase Troponin I Total Protein Albumin TSH Urine Color Yellow Urine Appearance Clear Urine pH 6.0 Ur Specific [place] 1.023 Urine Protein 3+ H Urine Glucose (UA) Negative Urine Ketones Trace H Urine Blood Negative Urine Nitrite Negative Urine Bilirubin Negative Urine Urobilinogen 0.2 Ur Leukocyte Esterase Negative Urine WBC (Auto) 1 Urine RBC (Auto) 1 Urine Casts (Auto) 28 U Epithel Cells (Auto) 8.2 Urine Bacteria (Auto) 0.8 ASSESSMENT/PLAN: 74 year old female with PMHx of HTN, HLD, Anxiety, COPD recent left distal radial fracture (04/04/19) arrived to ED with weakness (b/l legs, intermittent, with no relieving or exacerbating factors) and difficulty ambulating. # Pneumonia # Acute COPD exacerbation EKG: sinus rhythm with first degree AV block anterior infarct age undetermined. Head CT: No evidence of aacute intracranial hemorrhage. Chronic ischemic small vessel disease Chest CT: Trace to samll bilateral pleural effusions with bibasilar atelactasis and infiltrates Abdomen and Pelvis CT: no evidence of intestinal obstruction, perforation, colitis, free fluid or intra abdominal or pelvic abscess. sigmoid diveritculosis without evidence of acute diverticulitis wbc: 14.7, lactic acid: 0.8 UA negative - Duoneb x2, O2 via NC - vanc 1gm and zosyn 4.5 gm given x1 - followup blood and urine culture - followup ID - continue with prednisone - continue with Zosyn 3.375g Q 8 hours - continue with nebulizer q 4 hours - 02 via NC keep Spo2 greater than 90% - Tylenol q6 hours PRN for fever #HTN/HLD - Continue with Fenofibric Acid - Continue with Nebivolol HCl - Continue with Rosuvastatin - Continue with Hydralazine HCl # Anxiety - Continue with Alprazolam PRN Problem List - Problem (1) Pneumonia Code(s): J18.9 - PNEUMONIA, UNSPECIFIED ORGANISM Qualifiers: Pneumonia type: due to unspecified organism (2) Acute bronchitis with COPD Code(s): J44.0 - CHRONIC OBSTRUCTIVE PULMON DISEASE W ACUTE LOWER RESP INFCT; J20.9 - ACUTE BRONCHITIS, UNSPECIFIED (3) Anxiety Code(s): F41.9 - ANXIETY DISORDER, UNSPECIFIED (4) HLD (hyperlipidemia) Code(s): E78.5 - HYPERLIPIDEMIA, UNSPECIFIED (5) HTN (hypertension) Code(s): I10 - ESSENTIAL (PRIMARY) HYPERTENSION Visit type - Emergency Visit Emergency Visit: Yes ED Registration Date: 04/16/19 Care time: The patient presented to the Emergency Department on the above date and was hospitalized for further evaluation of their emergent condition. - New Patient This patient is new to me today: Yes Date on this admission: 04/16/19 - Critical Care Critical Care patient: No
[2019-04-16] MEDS ORDERED: ALBUTEROL SO4 0.083% IH SOL 2.5 MG/3 ML VIAL.NEB. NEB ONE ×3 (02:51→20:01)
[2019-04-16] MEDS ORDERED: ALPRAZolam 0.25 MG TABLET ONE ×3 (02:52→19:44)
[2019-04-16] MEDS ORDERED: IPRATROPIUM BR 0.02% 0.5 MG/2.5 ML VIAL.NEB. NEB ONE ×2 (02:52→20:01)
[2019-04-16] MEDS: IPRATROPIUM BR 0.02% 0.5 MG/2.5 ML VIAL.NEB. NEB PRN ×2 (03:00→20:40)
[2019-04-16] MEDS: ALBUTEROL SO4 0.083% IH SOL 2.5 MG/3 ML VIAL.NEB. NEB PRN ×3 (03:00→20:40)
[2019-04-16] MEDS ORDERED: hydrALAZINE HCL 25 MG TABLET (FP) ONE ×2 (06:41→06:48)
[2019-04-16] MEDS: hydrALAZINE HCL 25 MG TABLET (FP) PO SCH ×3 (06:50→22:04)
[2019-04-16] MEDS: ALPRAZolam 0.25 MG TABLET PO PRN ×2 (06:50→19:45)
[2019-04-16] MEDS ORDERED: PIPERACILLIN/TAZOB 3.375 GM 3.375 GM/50 ML BAG IVPB ONE ×2 (09:44→18:03)
[2019-04-16] MEDS ORDERED: HEPARIN NA (PORCINE) 5,000 UNITS/ML 1ML VIAL ONE (09:44)
[2019-04-16] MEDS ORDERED: PIPERACILLIN/TAZOB 3.375 GM 3.375 GM in DEXTROSE 5%-WATER - 50 ML IVPB SCH (10:00)
[2019-04-16] MEDS: HEPARIN NA (PORCINE) 5,000 UNITS/ML 1ML VIAL SQ SCH ×2 (10:12→22:04)
[2019-04-16] MEDS: NEBIVOLOL 10 MG TABLET (FP) PO SCH (10:12)
[2019-04-16] MEDS: FENOFIBRIC ACID 45 MG CAP PO SCH (10:12)
[2019-04-16] MEDS: predniSONE 10 MG TABLET (UD) PO SCH (10:12)
[2019-04-16] MEDS: ROSUVASTATIN CA 10 MG TABLET (FP) PO SCH (10:12)
--- NOTE | 2019-04-16 11:19 | PN ---
Progress Note (short form) - Note Progress Note: ID CONSULT DICTATED GENERALIZED WEAKNESS/ DEBILITATION HX FALLS, L RADIUS FRACTURE ? HCAP LLL S/P UTI LEUKOCYTOSIS OBTAIN C/S EMPIRIC COVERAGE HCAP WITH ZOSYN DISCUSSED WITH AT BEDSIDE
--- NOTE | 2019-04-16 11:58 | CONS ---
DATE OF CONSULTATION: 04/16/2019 HISTORY OF PRESENT ILLNESS: The patient is a 74-year-old female who is readmitted with generalized weakness. She was recently hospitalized at [facility] from April 11 through April 15. She had presented with generalized weakness and falls. She was treated for a urinary tract infection, exacerbation of COPD, and possible pneumonia. The reports that she had been home for only 4 hours when she became unable to ambulate even a short distance. She complained of profound weakness especially at the lower extremities bilaterally. He contacted his neurologist and was advised to bring the patient to the emergency room for evaluation. In the emergency room, a CT scan of the head was performed and was negative for acute infarct or bleed. Her initial evaluation was significant for an elevated white blood cell count. CT scan of the chest showed a patchy left lower lobe infiltrate and a right pleural effusion. At the present time, she is awake, appears very weak. She is audibly congested with cough productive of whitish sputum. She denies any chest pain or purulent sputum production. No complaints of hemoptysis. Patient has had a progressive decline over the past several weeks. The reports that over the past 3 weeks or so she has had worsening generalized weakness, she has had recurrent falls. She had fallen while at a hotel in [place], [place], and sustained a fracture to her distal left radius. No reports of head trauma or loss of consciousness. She denies any urinary tract complaints. No dysuria or hematuria, no vomiting or diarrhea. PAST MEDICAL HISTORY: Positive for hypertension, hyperlipidemia, COPD, left distal radius fracture. ALLERGIES: To SULFA. MEDICATIONS: Albuterol, Xanax, Trilipix, Bystolic, Crestor, hydralazine. SOCIAL HISTORY: Positive history of tobacco use. She stopped approximately 10 days ago. She denies alcohol abuse or illicit drug use. SYSTEMS REVIEW: Neurologic: Positive for generalized weakness. No loss of consciousness, seizure activity, or focal weakness. Cardiac: Negative for chest pain or palpitations. Respiratory: As per HPI. Gastrointestinal: Negative for vomiting or diarrhea. Genitourinary: Positive for recent urinary tract infection. LABORATORY DATA: White count 14.7, hematocrit 31.0, platelet count 325, differential 88 neutrophils, 5 lymphocytes, 5 monocytes. BUN 21, creatinine 1.1. Liver enzymes normal. Urinalysis 1 white cell. Blood and urine cultures are pending. PHYSICAL EXAMINATION: General: The patient is chronically ill-appearing, very weak, supine in bed. Vital signs: Temperature 98.5, blood pressure 144/76, pulse 74 and regular, respirations 20 per minute. HEENT: Sclerae anicteric. Heart: Heart sounds S1, S2. Lungs: Coarse rhonchi bilaterally. No wheezing or rales. Abdomen: Soft, nontender. Extremities: Negative for edema. There is a splint in place, left upper extremity. IMPRESSION: 1. Generalized weakness/debilitation. 2. History of falls with left distal radius fracture. 3. Rule out [id number] left lower lobe pneumonia. 4. Status post urinary tract infection. 5. Leukocytosis. Await cultures, obtain urine legionella and pneumococcal antigens, sputum culture, empiric antibiotic coverage of [id number] respiratory tract pathogens with Zosyn, pulmonary followup. Case discussed with patients present at the time of the examination. Thank you for the kind referral. MERARI GARCIA M.D. [id number]
--- NOTE | 2019-04-16 13:34 | CON.PULM ---
Consult Consult Specialty:: PULM/CCM Referred by:: Hospitalist Reason for Consultation:: PNA - History of Present Illness Chief Complaint: SOB History of Present Illness: 74F, HTN, HLD, Anxiety, COPD, and recent left distal radial fracture (04/04/19) . Admitted via the ER due to generalized malaise and weakness. Reported difficulty with ambulating. This is the 3rd episode in the past week. Reportedly had some cough with scant sputum production. No apparent travel history or sick contacts. No reports of hemoptysis. Seen by ID and started on empiric coverage for HCAP. CT: Confluent mediastinal lymphadenopathy / LLL consolidation & small effusion / RLL atelectasis - History Source History Provided By: Medical Record Limitations to Obtaining History: Clinical Condition - Past Medical History Pulmonary: Yes: COPD. No: Asthma, Cancer, O2 Dependent, Previously Intubated, Pulmonary Embolus, Pulmonary Fibrosis, Sleep Apnea Renal/: Yes: Renal Inusuff - Alcohol/Substance Use Hx Alcohol Use: No - Smoking History Smoking history: Current every day smoker Have you smoked in the past 12 months: Yes Aproximately how many cigarettes per day: 10 If you are a former smoker, when did you quit?: Two weeks ago - Social History Usual Living Arrangement: With Spouse History of Recent Travel: No Home Medications - Allergies Allergies/Adverse Reactions: Allergies Allergy/AdvReac Type Severity Reaction Status Date / Time sulfur [From Sulfur-8] Allergy Verified 04/15/19 20:40 - Home Medications Home Medications: Ambulatory Orders Albuterol Sulfate Inhaler - [Ventolin HFA Inhaler -] 1 - 2 inh PO QID 04/04/19 Alprazolam [Xanax] 0.5 mg PO PRN PRN 04/04/19 Fenofibric Acid [Trilipix -] 45 mg PO DAILY 04/04/19 Nebivolol HCl [Bystolic] 20 mg PO DAILY 04/04/19 Rosuvastatin [Crestor -] 10 mg PO DAILY 04/04/19 Hydralazine HCl 25 mg PO TID 04/11/19 Albuterol 2.5/Ipratropium 0.5 [Duoneb -] 1 amp NEB Q4H PRN #1 box 04/15/19 Review of Systems Unable to obtain ROS, reason: npt able to provide Physical Exam Vital Sings: Vital Signs Temperature 98.5 F 04/15/19 20:30 Pulse Rate 74 04/16/19 06:45 Respiratory Rate 20 04/16/19 06:45 Blood Pressure 144/76 04/16/19 06:45 O2 Sat by Pulse Oximetry (%) 95 04/16/19 06:45 Constitutional: Yes: Poor Hygeine, Thin Eyes: Yes: Conjunctiva Clear, EOM Intact HENT: Yes: Atraumatic, Normocephalic Neck: Yes: Supple, Trachea Midline Cardiovascular: Yes: Regular Rate and Rhythm Respiratory: Yes: Cough, Diminished, Rhonchi. No: Accessory Muscle Use, Rales, Stridor, Tachypnea, Wheezes ...Inspection: Yes: WNL ...Clubbing: No Gastrointestinal: Yes: Normal Bowel Sounds, Soft Musculoskeletal: Yes: WNL Extremities: Yes: WNL Edema: No Peripheral Pulses WNL: Yes Neurological: Yes: Confusion, Lethargy Labs: CBC, BMP 04/15/19 21:00 04/15/19 21:00 Imaging - Results Chest X-ray: Report Reviewed, Image Reviewed Problem List - Problems (1) Acute bronchitis with COPD Code(s): J44.0 - CHRONIC OBSTRUCTIVE PULMON DISEASE W ACUTE LOWER RESP INFCT; J20.9 - ACUTE BRONCHITIS, UNSPECIFIED (2) Pneumonia Code(s): J18.9 - PNEUMONIA, UNSPECIFIED ORGANISM Qualifiers: Pneumonia type: due to unspecified organism (3) Altered mental status Code(s): R41.82 - ALTERED MENTAL STATUS, UNSPECIFIED Qualifiers: Altered mental status type: unspecified Qualified Code(s): R41.82 - Altered mental status, unspecified (4) Anemia Code(s): D64.9 - ANEMIA, UNSPECIFIED (5) Anxiety Code(s): F41.9 - ANXIETY DISORDER, UNSPECIFIED (6) COPD (chronic obstructive pulmonary disease) Code(s): J44.9 - CHRONIC OBSTRUCTIVE PULMONARY DISEASE, UNSPECIFIED (7) HLD (hyperlipidemia) Code(s): E78.5 - HYPERLIPIDEMIA, UNSPECIFIED (8) HTN (hypertension) Code(s): I10 - ESSENTIAL (PRIMARY) HYPERTENSION (9) UTI (urinary tract infection) Code(s): N39.0 - URINARY TRACT INFECTION, SITE NOT SPECIFIED Qualifiers: Urinary tract infection type: site unspecified Hematuria presence: without hematuria Qualified Code(s): N39.0 - Urinary tract infection, site not specified (10) Wrist fracture Code(s): S62.109A - FRACTURE OF UNSP CARPAL BONE, UNSP WRIST, INIT FOR CLOS FX Qualifiers: Encounter type: initial encounter Fracture type: closed Laterality: left Qualified Code(s): S62.102A - Fracture of unspecified carpal bone, left wrist , initial encounter for closed fracture Assessment/Plan ABX per ID O2 as needed BD TX PRN Follow cultures Aspiration precautions Noted prednisone Will need followup CT imaging as an outpatient to follow extensive mediastinal adenopathy. Can be reactive due to infection but malignancy should be considered Will follow Thank you. Dr Robles
--- NOTE | 2019-04-16 14:07 | EKG ---
Test Reason : Blood Pressure : / mmHG Vent. Rate : 086 BPM Atrial Rate : 086 BPM P-R Int : 238 ms QRS Dur : 092 ms QT Int : 404 ms P-R-T Axes : 064 016 091 degrees QTc Int : 483 ms SINUS RHYTHM WITH 1ST DEGREE A-V BLOCK ABNORMAL ECG Confirmed by MERARI LIVINGSTON MD ([id number]) on 04/16/2019 2:07:27 PM Referred By: Confirmed By:MERARI LIVINGSTON MD
[2019-04-16] MEDS: PIPERACILLIN/TAZOB 3.375 GM 3.375 GM in DEXTROSE 5%-WATER - 50 ML IVPB SCH (18:12)
[2019-04-16] MEDS: ACETAMINOPHEN 325 MG TABLET (FP) PO PRN (23:27)
[2019-04-17] MEDS ORDERED: PIPERACILLIN/TAZOBACTAM 3.375 GM VIAL IVPB ONE ×3 (01:24→17:29)
[2019-04-17] MEDS ORDERED: DEXTROSE 5%-WATER - 50 ML IVPB ONE ×3 (01:24→17:29)
[2019-04-17] MEDS: ALBUTEROL SO4 0.083% IH SOL 2.5 MG/3 ML VIAL.NEB. NEB PRN (01:45)
[2019-04-17] MEDS: IPRATROPIUM BR 0.02% 0.5 MG/2.5 ML VIAL.NEB. NEB PRN ×2 (01:45→11:24)
[2019-04-17] MEDS: PIPERACILLIN/TAZOB 3.375 GM 3.375 GM in DEXTROSE 5%-WATER - 50 ML IVPB SCH ×3 (01:58→17:35)
[2019-04-17 02:28] VITALS: BMI 22.4
[2019-04-17] MEDS: hydrALAZINE HCL 25 MG TABLET (FP) PO SCH ×3 (06:23→21:32)
[2019-04-17 08:38] LABS: HEMOGLOBIN 10.1 GM/dL (10.7-15.3); MCH 27.5 pg (25.7-33.7); MCHC 32.7 g/dl (32.0-36.0); MEAN CELL VOLUME 84.2 fl (80-96); MEAN PLT VOLUME 7.7 fl (7.5-11.1); PLATELET COUNT 360 K/MM3 (134-434); RBC 3.69 M/mm3 (3.60-5.2); RDW 15.9 % (11.6-15.6); WHITE BLOOD COUNT 16.8 K/mm3 (4.0-10.0)
[2019-04-17 08:58] LABS: BLOOD UREA NITROGEN 26.9 mg/dL (7-18); CALCIUM 9.4 mg/dL (8.5-10.1); CREATININE 1.2 mg/dL (0.55-1.3); POTASSIUM 3.8 mmol/L (3.5-5.1)
[2019-04-17] MEDS ORDERED: PT OWN MED DRAWER 7, Y5N ONE (09:34)
[2019-04-17] MEDS: ROSUVASTATIN CA 10 MG TABLET (FP) PO SCH (09:38)
[2019-04-17] MEDS: NEBIVOLOL 10 MG TABLET (FP) PO SCH (09:38)
[2019-04-17] MEDS: predniSONE 10 MG TABLET (UD) PO SCH (09:38)
[2019-04-17] MEDS: FENOFIBRIC ACID 45 MG CAP PO SCH (09:38)
[2019-04-17] MEDS: HEPARIN NA (PORCINE) 5,000 UNITS/ML 1ML VIAL SQ SCH ×2 (09:38→21:32)
--- NOTE | 2019-04-17 10:53 | PN ---
Progress Note, Physician History of Present Illness: AWAKE,ALERT IN BED REPORTS LESS GENERALIZED WEAKNESS OCCASIONAL COUGH, WHITE SPUTUM PRODUCTION NO C/O CHEST PAIN/ DYSPNEA NO C/O FEVER/ CHILLS AFEBRILE WBC ELEVATED 16.8 BC PENDING - Current Medication List Current Medications: Active Medications Acetaminophen (Tylenol -) 650 mg PO Q4H PRN PRN Reason: PAIN OR FEVER Last Admin: 04/16/19 23:27 Dose: 650 mg Albuterol Sulfate (Ventolin 0.083% Nebulizer Soln -) 1 amp NEB Q4H PRN PRN Reason: SHORT OF BREATH/WHEEZING Last Admin: 04/17/19 01:45 Dose: 1 amp Alprazolam (Xanax -) 0.5 mg PO Q12H PRN PRN Reason: ANXIETY Last Admin: 04/16/19 19:45 Dose: 0.5 mg Fenofibric Acid (Trilipix -) 45 mg PO DAILY [facility] Last Admin: 04/17/19 09:38 Dose: 45 mg Heparin Sodium (Porcine) (Heparin -) 5,000 unit SQ BID RAUL Last Admin: 04/17/19 09:38 Dose: 5,000 unit Hydralazine HCl (Apresoline -) 25 mg PO TID [facility] Last Admin: 04/17/19 06:23 Dose: 25 mg Piperacillin Sod/Tazobactam (Sod 3.375 gm/ Dextrose) 50 mls @ 100 mls/hr IVPB Q8H-IV RAUL; Protocol Last Admin: 04/17/19 09:37 Dose: 100 mls/hr Ipratropium [place] (Atrovent 0.02% Nebulizer -) 1 amp NEB Q4H PRN PRN Reason: WHEEZING Last Admin: 04/17/19 01:45 Dose: 1 amp Nebivolol (Bystolic -) 20 mg PO DAILY [facility] Last Admin: 04/17/19 09:38 Dose: 20 mg Prednisone (Deltasone -) 30 mg PO DAILY [facility] Last Admin: 04/17/19 09:38 Dose: 30 mg Rosuvastatin Calcium (Crestor -) 10 mg PO DAILY [facility] Last Admin: 04/17/19 09:38 Dose: 10 mg - Objective Vital Signs: Vital Signs Temperature 98.2 F 04/17/19 09:00 Pulse Rate 78 04/17/19 09:00 Respiratory Rate 18 04/17/19 09:00 Blood Pressure 158/87 04/17/19 09:00 O2 Sat by Pulse Oximetry (%) 95 04/17/19 09:00 Constitutional: Yes: No Distress Eyes: Yes: Conjunctiva Clear Cardiovascular: Yes: Regular Rate and Rhythm, S1, S2 Respiratory: Yes: Rhonchi Gastrointestinal: Yes: Normal Bowel Sounds, Soft. No: Tenderness Edema: No Labs: CBC, BMP 04/17/19 06:59 04/17/19 06:59 INR, PTT INR 1.24 (0.83-1.09) H 04/15/19 21:00 Assessment/Plan LLL PNEUMONIA GENERALIZED WEAKNESS/ DEBILITATION/ FALLS LEUKOCYTOSIS AWAIT C/S CONTINUE EMPIRIC ZOSYN
--- NOTE | 2019-04-17 15:12 | PN ---
Progress Note (short form) - Note Progress Note: PULMONARY Still with chest congestion, cough. No fevers or chills. Vital Signs Period Temp Pulse Resp BP Sys/[place] Pulse Ox Last 24 Hr 97.5 F-98.2 F 21-81 16-18 140-158/78-102 95-95 Gen: NAD at rest Heart: RRR Lung: bilateral rhonchi Abd: soft, nontender Ext: no edema CBC, BMP 04/17/19 06:59 04/17/19 06:59 Active Medications Acetaminophen (Tylenol -) 650 mg PO Q4H PRN PRN Reason: PAIN OR FEVER Last Admin: 04/16/19 23:27 Dose: 650 mg Albuterol Sulfate (Ventolin 0.083% Nebulizer Soln -) 1 amp NEB Q4H PRN PRN Reason: SHORT OF BREATH/WHEEZING Last Admin: 04/17/19 01:45 Dose: 1 amp Alprazolam (Xanax -) 0.5 mg PO Q12H PRN PRN Reason: ANXIETY Last Admin: 04/16/19 19:45 Dose: 0.5 mg Fenofibric Acid (Trilipix -) 45 mg PO DAILY [facility] Last Admin: 04/17/19 09:38 Dose: 45 mg Heparin Sodium (Porcine) (Heparin -) 5,000 unit SQ BID [facility] Last Admin: 04/17/19 09:38 Dose: 5,000 unit Hydralazine HCl (Apresoline -) 25 mg PO TID [facility] Last Admin: 04/17/19 14:17 Dose: 25 mg Piperacillin Sod/Tazobactam (Sod 3.375 gm/ Dextrose) 50 mls @ 100 mls/hr IVPB Q8H-IV RAUL; Protocol Last Admin: 04/17/19 09:37 Dose: 100 mls/hr Ipratropium [place] (Atrovent 0.02% Nebulizer -) 1 amp NEB Q4H PRN PRN Reason: WHEEZING Last Admin: 04/17/19 11:24 Dose: 1 amp Nebivolol (Bystolic -) 20 mg PO DAILY [facility] Last Admin: 04/17/19 09:38 Dose: 20 mg Prednisone (Deltasone -) 30 mg PO DAILY [facility] Last Admin: 04/17/19 09:38 Dose: 30 mg Rosuvastatin Calcium (Crestor -) 10 mg PO DAILY [facility] Last Admin: 04/17/19 09:38 Dose: 10 mg A/P Pneumonia - Health care acquired r/o Aspiration Acute COPD Exacerbation HTN Hyperlipidemia Anxiety Recent Left Radial Fracture - IV antibiotics per ID - f/u cultures - inhaled bronchodilators - short course of medrol - O2 to keep SpO2 >90% - swallow eval - aspiration precautions - DVT prophylaxis
[2019-04-17] MEDS: ALBUTEROL SO4 2.5/IPRATROPIUM 0.5 INH SOL 3 ML VIAL.NEB. NEB SCH ×2 (16:49→21:30)
[2019-04-17] MEDS: methylPREDNISolone NA SUCC 40 MG/1 ML VIAL IVPUSH SCH (17:35)
[2019-04-17] MEDS: ALPRAZolam 0.25 MG TABLET PO PRN (21:37)
[2019-04-18] MEDS ORDERED: PIPERACILLIN/TAZOBACTAM 3.375 GM VIAL IVPB ONE ×3 (03:43→16:59)
[2019-04-18] MEDS ORDERED: DEXTROSE 5%-WATER - 50 ML IVPB ONE ×3 (03:43→17:00)
[2019-04-18] MEDS: methylPREDNISolone NA SUCC 40 MG/1 ML VIAL IVPUSH SCH ×3 (04:29→17:04)
[2019-04-18] MEDS: PIPERACILLIN/TAZOB 3.375 GM 3.375 GM in DEXTROSE 5%-WATER - 50 ML IVPB SCH ×3 (04:31→17:03)
[2019-04-18] MEDS: hydrALAZINE HCL 25 MG TABLET (FP) PO SCH ×3 (06:37→22:15)
[2019-04-18] MEDS: ALBUTEROL SO4 2.5/IPRATROPIUM 0.5 INH SOL 3 ML VIAL.NEB. NEB SCH ×4 (08:42→20:01)
[2019-04-18] MEDS: ALPRAZolam 0.25 MG TABLET PO PRN (09:15)
[2019-04-18] MEDS: ROSUVASTATIN CA 10 MG TABLET (FP) PO SCH (09:23)
[2019-04-18] MEDS: HEPARIN NA (PORCINE) 5,000 UNITS/ML 1ML VIAL SQ SCH ×2 (09:23→22:15)
[2019-04-18] MEDS ORDERED: PT OWN MED DRAWER 7, Y5N ONE (09:24)
[2019-04-18] MEDS: FENOFIBRIC ACID 45 MG CAP PO SCH (09:27)
[2019-04-18] MEDS: NEBIVOLOL 10 MG TABLET (FP) PO SCH (09:27)
--- NOTE | 2019-04-18 13:48 | PN ---
Progress Note (short form) - Note Progress Note: PULMONARY Breathing better. Less cough and wheezing. No fevers or chills. Vital Signs Period Temp Pulse Resp BP Sys/[place] Pulse Ox Last 24 Hr 97.6 F-98.3 F 68-93 18-20 154-187/32-99 99-99 Gen: NAD at rest Heart: RRR Lung: bilateral rhonchi Abd: soft, nontender Ext: no edema CBC, BMP 04/17/19 06:59 04/17/19 06:59 Active Medications Acetaminophen (Tylenol -) 650 mg PO Q4H PRN PRN Reason: PAIN OR FEVER Last Admin: 04/16/19 23:27 Dose: 650 mg Albuterol Sulfate (Ventolin 0.083% Nebulizer Soln -) 1 amp NEB Q4H PRN PRN Reason: SHORT OF BREATH/WHEEZING Last Admin: 04/17/19 01:45 Dose: 1 amp Albuterol/Ipratropium (Duoneb -) 1 amp NEB RQID [facility] Last Admin: 04/18/19 08:42 Dose: 1 amp Alprazolam (Xanax -) 0.5 mg PO Q12H PRN PRN Reason: ANXIETY Last Admin: 04/17/19 21:37 Dose: 0.5 mg Fenofibric Acid (Trilipix -) 45 mg PO DAILY [facility] Last Admin: 04/18/19 09:27 Dose: 45 mg Heparin Sodium (Porcine) (Heparin -) 5,000 unit SQ BID RAUL Last Admin: 04/18/19 09:23 Dose: 5,000 unit Hydralazine HCl (Apresoline -) 25 mg PO TID [facility] Last Admin: 04/18/19 06:37 Dose: 25 mg Piperacillin Sod/Tazobactam (Sod 3.375 gm/ Dextrose) 50 mls @ 100 mls/hr IVPB Q8H-IV RAUL; Protocol Last Admin: 04/18/19 09:22 Dose: 100 mls/hr Methylprednisolone Sodium Succinate (Solu-Medrol -) 40 mg IVPUSH Q8H-IV [facility]UL Last Admin: 04/18/19 09:22 Dose: 40 mg Nebivolol (Bystolic -) 20 mg PO DAILY [facility] Last Admin: 04/18/19 09:27 Dose: 20 mg Rosuvastatin Calcium (Crestor -) 10 mg PO DAILY [facility] Last Admin: 04/18/19 09:23 Dose: 10 mg A/P Pneumonia - Health care acquired r/o Aspiration Acute COPD Exacerbation HTN Hyperlipidemia Anxiety Recent Left Radial Fracture - IV antibiotics per ID - f/u cultures - inhaled bronchodilators - short course of medrol - O2 to keep SpO2 >90% - swallow eval - aspiration precautions - DVT prophylaxis
[2019-04-18] MEDS: ACETAMINOPHEN 325 MG TABLET (FP) PO PRN (18:19)
[2019-04-18] MEDS ORDERED: ONDANSETRON 4 MG/2 ML VIAL ONE (18:24)
[2019-04-18] MEDS ORDERED: NIFEdipine E.R. 30 MG TABLET (FP) PO ONE (19:00)
[2019-04-19] MEDS ORDERED: PIPERACILLIN/TAZOBACTAM 3.375 GM VIAL IVPB ONE ×3 (00:54→17:36)
[2019-04-19] MEDS ORDERED: DEXTROSE 5%-WATER - 50 ML IVPB ONE ×3 (00:54→17:36)
[2019-04-19] MEDS: methylPREDNISolone NA SUCC 40 MG/1 ML VIAL IVPUSH SCH ×3 (01:28→17:54)
[2019-04-19] MEDS: PIPERACILLIN/TAZOB 3.375 GM 3.375 GM in DEXTROSE 5%-WATER - 50 ML IVPB SCH ×3 (01:28→17:54)
[2019-04-19] MEDS: hydrALAZINE HCL 25 MG TABLET (FP) PO SCH ×3 (06:30→22:23)
[2019-04-19] MEDS ORDERED: PT OWN MED DRAWER 7, Y5N ONE (06:36)
[2019-04-19] MEDS: ALPRAZolam 0.25 MG TABLET PO PRN ×2 (07:00→22:23)
[2019-04-19] MEDS: ALBUTEROL SO4 2.5/IPRATROPIUM 0.5 INH SOL 3 ML VIAL.NEB. NEB SCH ×4 (07:25→19:51)
[2019-04-19] MEDS: ACETAMINOPHEN 325 MG TABLET (FP) PO PRN ×2 (08:24→18:21)
[2019-04-19] MEDS: NEBIVOLOL 10 MG TABLET (FP) PO SCH (10:00)
[2019-04-19] MEDS: ROSUVASTATIN CA 10 MG TABLET (FP) PO SCH (10:00)
[2019-04-19] MEDS: FENOFIBRIC ACID 45 MG CAP PO SCH (10:00)
[2019-04-19] MEDS: HEPARIN NA (PORCINE) 5,000 UNITS/ML 1ML VIAL SQ SCH ×2 (10:01→22:22)
--- NOTE | 2019-04-19 10:59 | CONSULT ---
Admitting History and Physical - Primary Care Physician PCP: Bob Montgomery - Admission History of Present Illness: Per EMR: 74 year old female with PMHx of HTN, HLD, Anxiety, COPD recent left distal radial fracture (04/04/19) arrived to ED with weakness (b/l legs, intermittent, with no relieving or exacerbating factors) and difficulty ambulating. This is the 3rd episode in the past week as per family. Patient was discharged on 2018 from [place] for same complaint and treatment for UTI. Prior to discharge patient had improved mental state and was able to ambulate as per daughters. A/P Pneumonia - Health care acquired r/o Aspiration Acute COPD Exacerbation HTN Hyperlipidemia Anxiety Recent Left Radial Fracture Selected Entries 04/18/19 04/18/19 04/18/19 05:20 10:00 13:09 Breakfast 25% Lunch 0 Supper Temperature 97.6 F 98.3 F 04/18/19 04/18/19 04/18/19 14:00 18:21 22:00 Breakfast Lunch Supper Temperature 98.3 F 98.4 F 98.7 F 04/18/19 04/19/19 04/19/19 22:41 02:00 06:00 Breakfast Lunch Supper 50% Temperature 98.6 F 98.3 F Laboratory Tests 04/15/19 04/17/19 21:00 06:59 WBC 14.7 H 16.8 H This is my first consult with this pt. History Source: Medical Record Limitations to Obtaining History: Clinical Condition - Past Medical History Pulmonary: Yes: COPD. No: Asthma, Cancer, O2 Dependent, Previously Intubated, Pulmonary Embolus, Pulmonary Fibrosis, Sleep Apnea Renal/: Yes: Renal Inusuff ...: No Heme/Onc: Yes: Anemia - Smoking History Smoking history: Former smoker Have you smoked in the past 12 months: Yes Aproximately how many cigarettes per day: 20 If you are a former smoker, when did you quit?: Two weeks ago - Alcohol/Substance Use Hx Alcohol Use: No - Social History History of Recent Travel: No History - Admission Reason For Visit: PNEUMONIA - Diagnostics CT Scan: Report Reviewed (Reviewed Head/ Chest- Chest-contrast enhanced imaging recommended.) - General Mental Status: Awake and Alert, Able to Follow Commands, Forgetful Attention: Intact Ability to Follow Directions: Good Head/Neck Control: WFL - Hearing Hearing: Normal Hearing Aide: No With Patient: No Speech Evaluation - Communication Primary Language: URDU Communication: Yes: Simple Responses - Speech Production Intelligibility: Yes: Mildly Impaired - Speech Characteristics Voice Loudness: Mildly Soft/Quiet Voice Pitch: Yes: Normal Voice Phonatory-based Quality: Yes: Dysphonia, Vocal Wetness Speech Clarity: < 75% Articulation: Yes: Precise - Language/Auditory Comprehension Follows: Yes: 1 Stage Simple Commands - Language/Verbal Expression Able to Communicate Wants and Needs: Yes: Mildly Impaired - Swallow Evaluation/Bedside Assessment Current Nutritional Intake: Regular, Thin Liquids Oral Secretions: Yes: Copious Secretions (coughing/expectorating thick secretions. Blood tinged -Nursing informed.) Dentition: Yes: Adequate Facial Symmetry at Rest: Symmetrical Against Resistance Opening: Weak Against Resistance Closing: Weak Pucker Lips: Normal Smile: Normal Lingual Movement: Symmetric Lingual Speed of Movement: Normal Lingual Movement Strgth Against Opposition: Normal Lingual Movement Characteristics: Normal Velopharyngeal Movement: Normal Laryngeal Movement: Able to Palpate Rate of Intake: WFL Bolus Size: WFL Labial Seal: WFL Chewing: WFL Oral Prep Time: WFL A-P Transit: WFL Pocketing: None Coughing/Throat Clear: Yes (with and without po trials) Recommendations - Speech Evaluation, Impression/Plan Impression: Coughing with and without po trials. Copious secretions expectorated. Blood tinged- nursing made aware.CT chest noted. reports pt sometimes needs liquid to "wash down" solids. - Dysphagia Impressions/Plan Dysphagia Impressions: Ongoing Evaluation *Silent aspiration: cannot be R/O at bedside Recommendations: MBS w Esophagus (once improved, id signs of aspiration reported ) - Recommendations Diet Consistency: Regular, Other (monitor tolerance) Medication Administration: Whole with water Liquids: Thin Liquids
--- NOTE | 2019-04-19 12:41 | PN ---
Progress Note (short form) - Note Progress Note: Breathing continues to slowly improve. Less cough and wheezing. No fevers or chills. Intake & Output 04/16/19 04/17/19 04/18/19 04/19/19 23:59 23:59 23:59 23:59 Intake Total 370 440 560 240 Balance 370 440 560 240 Weight 135 lb 2 oz Last Vital Signs Temp Pulse Resp BP Pulse Ox 98.3 F 93 H 20 189/105 H 99 04/19/19 06:00 04/19/19 06:00 04/19/19 06:00 04/19/19 06:00 04/18/19 22:00 Active Medications Acetaminophen (Tylenol -) 650 mg PO Q4H PRN PRN Reason: PAIN OR FEVER Last Admin: 04/19/19 08:24 Dose: 650 mg Albuterol Sulfate (Ventolin 0.083% Nebulizer Soln -) 1 amp NEB Q4H PRN PRN Reason: SHORT OF BREATH/WHEEZING Last Admin: 04/17/19 01:45 Dose: 1 amp Albuterol/Ipratropium (Duoneb -) 1 amp NEB RQID [facility] Last Admin: 04/19/19 11:20 Dose: 1 amp Alprazolam (Xanax -) 0.5 mg PO Q12H PRN PRN Reason: ANXIETY Last Admin: 04/19/19 07:00 Dose: 0.5 mg Fenofibric Acid (Trilipix -) 45 mg PO DAILY [facility] Last Admin: 04/19/19 10:00 Dose: 45 mg Heparin Sodium (Porcine) (Heparin -) 5,000 unit SQ BID [facility] Last Admin: 04/19/19 10:01 Dose: 5,000 unit Hydralazine HCl (Apresoline -) 25 mg PO TID [facility] Last Admin: 04/19/19 06:30 Dose: 25 mg Piperacillin Sod/Tazobactam (Sod 3.375 gm/ Dextrose) 50 mls @ 100 mls/hr IVPB Q8H-IV [facility]; Protocol Last Admin: 04/19/19 09:59 Dose: 100 mls/hr Methylprednisolone Sodium Succinate (Solu-Medrol -) 40 mg IVPUSH Q8H-IV [facility] Last Admin: 04/19/19 10:00 Dose: 40 mg Nebivolol (Bystolic -) 20 mg PO DAILY [facility] Last Admin: 04/19/19 10:00 Dose: 20 mg Rosuvastatin Calcium (Crestor -) 10 mg PO DAILY [facility] Last Admin: 04/19/19 10:00 Dose: 10 mg Gen: NAD at rest Heart: RRR Lung: bilateral rhonchi Abd: soft, nontender Ext: no edema A/P Pneumonia - Health care acquired r/o Aspiration Acute COPD Exacerbation HTN Hyperlipidemia Anxiety Recent Left Radial Fracture - IV antibiotics per ID - f/u cultures - inhaled bronchodilators - short course of medrol - O2 to keep SpO2 >90% - swallow eval - aspiration precautions - DVT prophylaxis Dr Robles Problem List - Problems (1) Acute bronchitis with COPD Code(s): J44.0 - CHRONIC OBSTRUCTIVE PULMON DISEASE W ACUTE LOWER RESP INFCT; J20.9 - ACUTE BRONCHITIS, UNSPECIFIED (2) Pneumonia Code(s): J18.9 - PNEUMONIA, UNSPECIFIED ORGANISM Qualifiers: Pneumonia type: due to unspecified organism (3) Altered mental status Code(s): R41.82 - ALTERED MENTAL STATUS, UNSPECIFIED Qualifiers: Altered mental status type: unspecified Qualified Code(s): R41.82 - Altered mental status, unspecified (4) Anemia Code(s): D64.9 - ANEMIA, UNSPECIFIED (5) Anxiety Code(s): F41.9 - ANXIETY DISORDER, UNSPECIFIED (6) COPD (chronic obstructive pulmonary disease) Code(s): J44.9 - CHRONIC OBSTRUCTIVE PULMONARY DISEASE, UNSPECIFIED (7) HLD (hyperlipidemia) Code(s): E78.5 - HYPERLIPIDEMIA, UNSPECIFIED (8) HTN (hypertension) Code(s): I10 - ESSENTIAL (PRIMARY) HYPERTENSION (9) UTI (urinary tract infection) Code(s): N39.0 - URINARY TRACT INFECTION, SITE NOT SPECIFIED Qualifiers: Urinary tract infection type: site unspecified Hematuria presence: without hematuria Qualified Code(s): N39.0 - Urinary tract infection, site not specified (10) Wrist fracture Code(s): S62.109A - FRACTURE OF UNSP CARPAL BONE, UNSP WRIST, INIT FOR CLOS FX Qualifiers: Encounter type: initial encounter Fracture type: closed Laterality: left Qualified Code(s): S62.102A - Fracture of unspecified carpal bone, left wrist , initial encounter for closed fracture
[2019-04-19] MEDS ORDERED: PANTOPRAZOLE SODIUM 40 MG VIAL IVPB ONE (19:15)
[2019-04-19] MEDS: LACTOBACILLUS ACIDOPHILUS 1 TABLET PO SCH (20:11)
[2019-04-20] MEDS ORDERED: PIPERACILLIN/TAZOBACTAM 3.375 GM VIAL IVPB ONE ×3 (01:16→16:59)
[2019-04-20] MEDS ORDERED: DEXTROSE 5%-WATER - 50 ML IVPB ONE ×3 (01:16→17:00)
[2019-04-20] MEDS: PIPERACILLIN/TAZOB 3.375 GM 3.375 GM in DEXTROSE 5%-WATER - 50 ML IVPB SCH ×3 (01:54→17:27)
[2019-04-20] MEDS: methylPREDNISolone NA SUCC 40 MG/1 ML VIAL IVPUSH SCH ×3 (01:54→17:27)
[2019-04-20] MEDS: hydrALAZINE HCL 25 MG TABLET (FP) PO SCH ×3 (06:49→21:33)
[2019-04-20] MEDS: ALBUTEROL SO4 2.5/IPRATROPIUM 0.5 INH SOL 3 ML VIAL.NEB. NEB SCH ×4 (07:35→19:58)
[2019-04-20] MEDS: ALPRAZolam 0.25 MG TABLET PO PRN ×2 (09:02→21:33)
[2019-04-20] MEDS: FENOFIBRIC ACID 45 MG CAP PO SCH (09:46)
[2019-04-20] MEDS: ROSUVASTATIN CA 10 MG TABLET (FP) PO SCH (09:46)
[2019-04-20] MEDS: NEBIVOLOL 10 MG TABLET (FP) PO SCH (09:46)
[2019-04-20] MEDS: LACTOBACILLUS ACIDOPHILUS 1 TABLET PO SCH (09:46)
[2019-04-20] MEDS: HEPARIN NA (PORCINE) 5,000 UNITS/ML 1ML VIAL SQ SCH ×2 (09:46→21:33)
[2019-04-20] MEDS ORDERED: PANTOPRAZOLE 40 MG TABLET (FP) PO SCH (10:00)
--- NOTE | 2019-04-20 11:54 | PN ---
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 Still dysphonic, expectorating phlegm. Denies dysphagia "except when I eats too fast and the solid food gets stuck. Then I drink to get it down. " Reportedly voice is normally strong, not dysphonic. MBS with screening of esophagus would be beneficial to r/o aspiration/ hang up of solids (per reported history). Pt does not want this done at this time. Still coughing/congested.
--- NOTE | 2019-04-20 13:13 | PN ---
Progress Note (short form) - Note Progress Note: Breathing continues to slowly improve. Less cough and wheezing. No fevers or chills. Intake & Output 04/17/19 04/18/19 04/19/19 04/20/19 23:59 23:59 23:59 23:59 Intake Total 440 560 690 250 Balance 440 560 690 250 Last Vital Signs Temp Pulse Resp BP Pulse Ox 98.5 F 80 20 137/67 94 L 04/20/19 06:00 04/20/19 06:00 04/20/19 06:00 04/20/19 06:00 04/19/19 21:00 Active Medications Acetaminophen (Tylenol -) 650 mg PO Q4H PRN PRN Reason: PAIN OR FEVER Last Admin: 04/19/19 18:21 Dose: 650 mg Albuterol Sulfate (Ventolin 0.083% Nebulizer Soln -) 1 amp NEB Q4H PRN PRN Reason: SHORT OF BREATH/WHEEZING Last Admin: 04/17/19 01:45 Dose: 1 amp Albuterol/Ipratropium (Duoneb -) 1 amp NEB RQID [facility] Last Admin: 04/20/19 07:35 Dose: 1 amp Alprazolam (Xanax -) 0.5 mg PO Q12H PRN PRN Reason: ANXIETY Last Admin: 04/20/19 09:02 Dose: 0.5 mg Fenofibric Acid (Trilipix -) 45 mg PO DAILY [facility] Last Admin: 04/20/19 09:46 Dose: 45 mg Heparin Sodium (Porcine) (Heparin -) 5,000 unit SQ BID [facility] Last Admin: 04/20/19 09:46 Dose: 5,000 unit Hydralazine HCl (Apresoline -) 25 mg PO TID [facility] Last Admin: 04/20/19 06:49 Dose: 25 mg Piperacillin Sod/Tazobactam (Sod 3.375 gm/ Dextrose) 50 mls @ 100 mls/hr IVPB Q8H-IV [facility]; Protocol Last Admin: 04/20/19 09:44 Dose: 100 mls/hr Lactobacillus Acidophilus (Bacid -) 1 tab PO DAILY [facility] Last Admin: 04/20/19 09:46 Dose: 1 tab Methylprednisolone Sodium Succinate (Solu-Medrol -) 40 mg IVPUSH Q8H-IV [facility] Last Admin: 04/20/19 09:44 Dose: 40 mg Nebivolol (Bystolic -) 20 mg PO DAILY [facility] Last Admin: 04/20/19 09:46 Dose: 20 mg Pantoprazole Sodium (Protonix -) 40 mg PO DAILY [facility] Last Admin: 04/20/19 09:46 Dose: 40 mg Rosuvastatin Calcium (Crestor -) 10 mg PO DAILY [facility] Last Admin: 04/20/19 09:46 Dose: 10 mg Gen: NAD at rest Heart: RRR Lung: bilateral rhonchi Abd: soft, nontender Ext: no edema A/P Pneumonia - Health care acquired r/o Aspiration Acute COPD Exacerbation HTN Hyperlipidemia Anxiety Recent Left Radial Fracture - Agree with MBS - IV antibiotics per ID - inhaled bronchodilators - medrol - O2 to keep SpO2 >90% - PPI and probiotic - aspiration precautions - DVT prophylaxis Dr Robles Problem List - Problems (1) Acute bronchitis with COPD Code(s): J44.0 - CHRONIC OBSTRUCTIVE PULMON DISEASE W ACUTE LOWER RESP INFCT; J20.9 - ACUTE BRONCHITIS, UNSPECIFIED (2) Pneumonia Code(s): J18.9 - PNEUMONIA, UNSPECIFIED ORGANISM Qualifiers: Pneumonia type: due to unspecified organism (3) Altered mental status Code(s): R41.82 - ALTERED MENTAL STATUS, UNSPECIFIED Qualifiers: Altered mental status type: unspecified Qualified Code(s): R41.82 - Altered mental status, unspecified (4) Anemia Code(s): D64.9 - ANEMIA, UNSPECIFIED (5) Anxiety Code(s): F41.9 - ANXIETY DISORDER, UNSPECIFIED (6) COPD (chronic obstructive pulmonary disease) Code(s): J44.9 - CHRONIC OBSTRUCTIVE PULMONARY DISEASE, UNSPECIFIED (7) HLD (hyperlipidemia) Code(s): E78.5 - HYPERLIPIDEMIA, UNSPECIFIED (8) HTN (hypertension) Code(s): I10 - ESSENTIAL (PRIMARY) HYPERTENSION (9) UTI (urinary tract infection) Code(s): N39.0 - URINARY TRACT INFECTION, SITE NOT SPECIFIED Qualifiers: Urinary tract infection type: site unspecified Hematuria presence: without hematuria Qualified Code(s): N39.0 - Urinary tract infection, site not specified (10) Wrist fracture Code(s): S62.109A - FRACTURE OF UNSP CARPAL BONE, UNSP WRIST, INIT FOR CLOS FX Qualifiers: Encounter type: initial encounter Fracture type: closed Laterality: left Qualified Code(s): S62.102A - Fracture of unspecified carpal bone, left wrist , initial encounter for closed fracture
[2019-04-20] MEDS: BENZOCAINE/MENTH/CETYLPYRD CL 1 EACH LOZENGE MM PRN (20:54)
[2019-04-20] MEDS ORDERED: ACETAMINOPHEN 325 MG TABLET (FP) PO PRN (20:55)
[2019-04-21] MEDS ORDERED: PIPERACILLIN/TAZOBACTAM 3.375 GM VIAL IVPB ONE ×3 (00:57→17:49)
[2019-04-21] MEDS ORDERED: DEXTROSE 5%-WATER - 50 ML IVPB ONE ×3 (00:58→17:50)
[2019-04-21] MEDS: PIPERACILLIN/TAZOB 3.375 GM 3.375 GM in DEXTROSE 5%-WATER - 50 ML IVPB SCH ×3 (01:27→18:18)
[2019-04-21] MEDS: methylPREDNISolone NA SUCC 40 MG/1 ML VIAL IVPUSH SCH ×4 (01:27→22:43)
[2019-04-21] MEDS: hydrALAZINE HCL 25 MG TABLET (FP) PO SCH ×3 (06:21→22:42)
[2019-04-21 07:35] LABS: BASO % 0.1 % (0-2.0); HEMATOCRIT 36.5 % (32.4-45.2); HEMOGLOBIN 11.8 GM/dL (10.7-15.3); LYMPH % 2.3 % (8-40); MCH 27.4 pg (25.7-33.7); MCHC 32.5 g/dl (32.0-36.0); MEAN CELL VOLUME 84.4 fl (80-96); MONO % 1.5 % (3.8-10.2); NEUT % 96.1 % (42.8-82.8); PLATELET COUNT 435 K/MM3 (134-434); RBC 4.32 M/mm3 (3.60-5.2); RDW 16.1 % (11.6-15.6); WHITE BLOOD COUNT 29.1 K/mm3 (4.0-10.0)
[2019-04-21 07:51] LABS: BILIRUBIN,TOTAL 0.8 mg/dL (0.2-1); BLOOD UREA NITROGEN 33.1 mg/dL (7-18); CALCIUM 9.9 mg/dL (8.5-10.1); CREATININE 1.2 mg/dL (0.55-1.3); POTASSIUM 3.4 mmol/L (3.5-5.1); TOT PROT 7.2 g/dl (6.4-8.2)
[2019-04-21] MEDS: ALBUTEROL SO4 2.5/IPRATROPIUM 0.5 INH SOL 3 ML VIAL.NEB. NEB SCH ×4 (08:00→21:33)
[2019-04-21] MEDS ORDERED: ROSUVASTATIN CA 10 MG TABLET (FP) PO SCH ×2 (10:00→22:00)
[2019-04-21] MEDS ORDERED: PANTOPRAZOLE 40 MG TABLET (FP) PO SCH (10:00)
[2019-04-21 10:33] LABS: ANISOCYTOSIS 0; MACROCYTOSIS 0; PLATELET ESTIMATE NORMAL
--- NOTE | 2019-04-21 10:46 | PN ---
Progress Note (short form) - Note Progress Note: Breathing continues to slowly improve. Still with some cough and wheezing. No fevers or chills. Intake & Output 04/18/19 04/19/19 04/20/19 04/21/19 23:59 23:59 23:59 23:59 Intake Total 560 690 550 50 Balance 560 690 550 50 Last Vital Signs Temp Pulse Resp BP Pulse Ox 98.1 F 91 H 18 158/99 92 L 04/21/19 06:00 04/21/19 07:01 04/21/19 07:01 04/21/19 07:01 04/20/19 21:00 Active Medications Acetaminophen (Tylenol -) 650 mg PO Q4H PRN PRN Reason: PAIN OR FEVER Albuterol Sulfate (Ventolin 0.083% Nebulizer Soln -) 1 amp NEB Q4H PRN PRN Reason: SHORT OF BREATH/WHEEZING Albuterol/Ipratropium (Duoneb -) 1 amp NEB RQID [facility] Last Admin: 04/21/19 08:00 Dose: Not Given Alprazolam (Xanax -) 0.5 mg PO Q12H PRN PRN Reason: ANXIETY Last Admin: 04/20/19 21:33 Dose: 0.5 mg Benzocaine/Menthol (Cepacol Lozenge -) 1 each MM Q6H PRN PRN Reason: SORE THROAT Last Admin: 04/20/19 20:54 Dose: 1 each Fenofibric Acid (Trilipix -) 45 mg PO DAILY [facility] Heparin Sodium (Porcine) (Heparin -) 5,000 unit SQ BID [facility] Last Admin: 04/20/19 21:33 Dose: 5,000 unit Hydralazine HCl (Apresoline -) 25 mg PO TID [facility] Last Admin: 04/21/19 06:21 Dose: 25 mg Piperacillin Sod/Tazobactam (Sod 3.375 gm/ Dextrose) 50 mls @ 100 mls/hr IVPB Q8H-IV [facility]; Protocol Last Admin: 04/21/19 01:27 Dose: 100 mls/hr Lactobacillus Acidophilus (Bacid -) 1 tab PO DAILY [facility] Methylprednisolone Sodium Succinate (Solu-Medrol -) 40 mg IVPUSH Q8H-IV [facility] Last Admin: 04/21/19 01:27 Dose: 40 mg Nebivolol (Bystolic -) 20 mg PO DAILY [facility] Pantoprazole Sodium (Protonix -) 40 mg PO DAILY [facility] Polyethylene Glycol (Miralax (For Daily Use) -) 17 gm PO DAILY [facility] Rosuvastatin Calcium (Crestor -) 10 mg PO HS [facility] Gen: Anxious, NAD at rest Heart: RRR Lung: bilateral rhonchi Abd: soft, nontender Ext: no edema A/P Pneumonia - Health care acquired r/o Aspiration Acute COPD Exacerbation HTN Hyperlipidemia Anxiety Recent Left Radial Fracture Mediastinal confluence: (?) affecting swallowing. Will need to R/O malignancy - Agree with MBS: Medically stable - CXR - IV antibiotics per ID - inhaled bronchodilators - Wean medrol - O2 to keep SpO2 >90% - PPI and probiotic - aspiration precautions - DVT prophylaxis Dr Robles Problem List - Problems (1) Acute bronchitis with COPD Code(s): J44.0 - CHRONIC OBSTRUCTIVE PULMON DISEASE W ACUTE LOWER RESP INFCT; J20.9 - ACUTE BRONCHITIS, UNSPECIFIED (2) Pneumonia Code(s): J18.9 - PNEUMONIA, UNSPECIFIED ORGANISM Qualifiers: Pneumonia type: due to unspecified organism (3) Altered mental status Code(s): R41.82 - ALTERED MENTAL STATUS, UNSPECIFIED Qualifiers: Altered mental status type: unspecified Qualified Code(s): R41.82 - Altered mental status, unspecified (4) Anemia Code(s): D64.9 - ANEMIA, UNSPECIFIED (5) Anxiety Code(s): F41.9 - ANXIETY DISORDER, UNSPECIFIED (6) COPD (chronic obstructive pulmonary disease) Code(s): J44.9 - CHRONIC OBSTRUCTIVE PULMONARY DISEASE, UNSPECIFIED (7) HLD (hyperlipidemia) Code(s): E78.5 - HYPERLIPIDEMIA, UNSPECIFIED (8) HTN (hypertension) Code(s): I10 - ESSENTIAL (PRIMARY) HYPERTENSION (9) UTI (urinary tract infection) Code(s): N39.0 - URINARY TRACT INFECTION, SITE NOT SPECIFIED Qualifiers: Urinary tract infection type: site unspecified Hematuria presence: without hematuria Qualified Code(s): N39.0 - Urinary tract infection, site not specified (10) Wrist fracture Code(s): S62.109A - FRACTURE OF UNSP CARPAL BONE, UNSP WRIST, INIT FOR CLOS FX Qualifiers: Encounter type: initial encounter Fracture type: closed Laterality: left Qualified Code(s): S62.102A - Fracture of unspecified carpal bone, left wrist , initial encounter for closed fracture
[2019-04-21] MEDS ORDERED: POTASSIUM CHLORIDE ORAL LIQUID 20 MEQ/15 ML PO ONE (10:48)
[2019-04-21] MEDS ORDERED: PT OWN MED DRAWER 7, Y5N ONE ×2 (10:53→17:38)
[2019-04-21] MEDS: NEBIVOLOL 10 MG TABLET (FP) PO SCH (10:57)
[2019-04-21] MEDS: HEPARIN NA (PORCINE) 5,000 UNITS/ML 1ML VIAL SQ SCH ×2 (11:10→22:53)
[2019-04-21] MEDS: BENZOCAINE/MENTH/CETYLPYRD CL 1 EACH LOZENGE MM PRN (11:28)
[2019-04-21] MEDS ORDERED: PANTOPRAZOLE SODIUM 40 MG VIAL IVPUSH SCH (11:45)
[2019-04-21] MEDS: KCL 10 MEQ IVPB 10 MEQ/100 ML INFUS.BAG IVPB SCH ×2 (12:59→15:01)
[2019-04-21] MEDS: LACTOBACILLUS ACIDOPHILUS 1 TABLET PO SCH (14:35)
[2019-04-21] MEDS: POLYETHYLENE GLYCOL 3350 119 GM BTL PO SCH (14:36)
[2019-04-21] MEDS: FENOFIBRIC ACID 45 MG CAP PO SCH (14:37)
[2019-04-21] MEDS: ALPRAZolam 0.25 MG TABLET PO PRN ×2 (15:36→22:43)
--- NOTE | 2019-04-21 16:12 | PN ---
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 Per Pulmonary-Mediastinal confluence: (?) affecting swallowing. Will need to R/ O malignancy Still congested and dysphonic with intermittently wet vocal quality. Pt seems to tolerate 1-2 sips but then starts to cough and expectorate phlegm. She c/o pain mid chest, feels it's "refux". Pt receiving protonix IV. Forgetful.Anxious. Pt is a LT smoker.Just quit. Dypshonia. reports this is recent. Has not been seen by ENT previously. Suspect pharyngeal/Esophageal Dysphagia, retograde/anterograde aspiration . Suggest- Hold PO intake for now. Or minimal due to suspected aspiration. HOB elevated. [place] [facility] could not accommodate today
[2019-04-21] MEDS: ALBUTEROL SO4 0.083% IH SOL 2.5 MG/3 ML VIAL.NEB. NEB PRN (18:00)
[2019-04-21] MEDS: SUCRALFATE 1 GM/10 ML UNIT DOSE CUPS PO SCH (18:06)
[2019-04-21] MEDS: PANTOPRAZOLE SODIUM 40 MG VIAL IVPB SCH (22:43)
[2019-04-22] MEDS: SUCRALFATE 1 GM/10 ML UNIT DOSE CUPS PO SCH ×4 (01:05→17:16)
[2019-04-22] MEDS ORDERED: DEXTROSE 5%-WATER - 50 ML IVPB ONE ×3 (02:04→16:57)
[2019-04-22] MEDS ORDERED: PIPERACILLIN/TAZOBACTAM 3.375 GM VIAL IVPB ONE ×3 (02:04→16:57)
[2019-04-22] MEDS: PIPERACILLIN/TAZOB 3.375 GM 3.375 GM in DEXTROSE 5%-WATER - 50 ML IVPB SCH ×3 (02:33→17:17)
[2019-04-22] MEDS: ALBUTEROL SO4 0.083% IH SOL 2.5 MG/3 ML VIAL.NEB. NEB PRN (02:55)
[2019-04-22] MEDS: hydrALAZINE HCL 25 MG TABLET (FP) PO SCH ×2 (06:35→15:10)
[2019-04-22] MEDS: ALBUTEROL SO4 2.5/IPRATROPIUM 0.5 INH SOL 3 ML VIAL.NEB. NEB SCH ×4 (08:00→21:30)
[2019-04-22] MEDS: PANTOPRAZOLE SODIUM 40 MG VIAL IVPB SCH ×2 (09:19→22:39)
[2019-04-22] MEDS: HEPARIN NA (PORCINE) 5,000 UNITS/ML 1ML VIAL SQ SCH ×2 (09:19→22:39)
[2019-04-22] MEDS: POLYETHYLENE GLYCOL 3350 119 GM BTL PO SCH (09:20)
[2019-04-22] MEDS: methylPREDNISolone NA SUCC 40 MG/1 ML VIAL IVPUSH SCH ×2 (09:20→22:38)
[2019-04-22] MEDS: LACTOBACILLUS ACIDOPHILUS 1 TABLET PO SCH (09:21)
[2019-04-22] MEDS ORDERED: PT OWN MED DRAWER 7, Y5N ONE (09:24)
[2019-04-22] MEDS: NEBIVOLOL 10 MG TABLET (FP) PO SCH (09:25)
[2019-04-22] MEDS: FENOFIBRIC ACID 45 MG CAP PO SCH (09:25)
[2019-04-22] MEDS: ALPRAZolam 0.25 MG TABLET PO PRN (09:46)
--- NOTE | 2019-04-22 09:58 | PN ---
Progress Note (short form) - Note Progress Note: Breathing continues to slowly improve. Still with poor PO intake and vomiting. Still with some cough and wheezing. No fevers or chills. Discussed findings of the CT scan again with the patient and her . Intake & Output 04/19/19 04/20/19 04/21/19 04/22/19 23:59 23:59 23:59 23:59 Intake Total 690 550 500 50 Balance 690 550 500 50 Last Vital Signs Temp Pulse Resp BP Pulse Ox 97.5 F L 85 20 126/65 95 04/22/19 06:00 04/22/19 06:00 04/22/19 06:00 04/22/19 06:00 04/21/19 21:00 Active Medications Acetaminophen (Tylenol -) 650 mg PO Q4H PRN PRN Reason: PAIN OR FEVER Albuterol Sulfate (Ventolin 0.083% Nebulizer Soln -) 1 amp NEB Q4H PRN PRN Reason: SHORT OF BREATH/WHEEZING Last Admin: 04/22/19 02:55 Dose: 1 amp Albuterol/Ipratropium (Duoneb -) 1 amp NEB RQID [facility] Last Admin: 04/22/19 08:00 Dose: 1 amp Alprazolam (Xanax -) 0.5 mg PO Q12H PRN PRN Reason: ANXIETY Last Admin: 04/22/19 09:46 Dose: 0.5 mg Benzocaine/Menthol (Cepacol Lozenge -) 1 each MM Q6H PRN PRN Reason: SORE THROAT Last Admin: 04/21/19 11:28 Dose: 1 each Fenofibric Acid (Trilipix -) 45 mg PO DAILY [facility] Last Admin: 04/22/19 09:25 Dose: 45 mg Heparin Sodium (Porcine) (Heparin -) 5,000 unit SQ BID [facility] Last Admin: 04/22/19 09:19 Dose: 5,000 unit Hydralazine HCl (Apresoline -) 25 mg PO TID [facility] Last Admin: 04/22/19 06:35 Dose: 25 mg Piperacillin Sod/Tazobactam (Sod 3.375 gm/ Dextrose) 50 mls @ 100 mls/hr IVPB Q8H-IV [facility]; Protocol Last Admin: 04/22/19 09:20 Dose: 100 mls/hr Lactobacillus Acidophilus (Bacid -) 1 tab PO DAILY [facility] Last Admin: 04/22/19 09:21 Dose: 1 tab Methylprednisolone Sodium Succinate (Solu-Medrol -) 30 mg IVPUSH BID [facility] Last Admin: 04/22/19 09:20 Dose: 30 mg Nebivolol (Bystolic -) 20 mg PO DAILY [facility] Last Admin: 04/22/19 09:25 Dose: 20 mg Pantoprazole Sodium (Protonix Iv) 40 mg IVPB BID [facility] Last Admin: 04/22/19 09:19 Dose: 40 mg Polyethylene Glycol (Miralax (For Daily Use) -) 17 gm PO DAILY [facility] Last Admin: 04/22/19 09:20 Dose: Not Given Rosuvastatin Calcium (Crestor -) 10 mg PO [facility] Last Admin: 04/21/19 22:43 Dose: 10 mg Sucralfate (Carafate Oral Suspension -) 1 gm PO Q6HPO [facility] Last Admin: 04/22/19 06:35 Dose: 1 gm Gen: Anxious, NAD at rest Heart: RRR Lung: bilateral rhonchi Abd: soft, nontender Ext: no edema Laboratory Results - last 24 hr 04/21/19 04/22/19 06:50 05:57 Neutrophils % (Manual) 93.0 H Band Neutrophils % 0.0 Lymphocytes % (Manual) 2.0 L Monocytes % (Manual) 3 L Eosinophils % (Manual) 0.0 Basophils % (Manual) 0.0 Myelocytes % (Man) 2 Promyelocytes % (Man) 0 Blast Cells % (Manual) 0 Metamyelocytes 0 Hypochromia 0 Platelet Estimate Normal Polychromasia 0 Poikilocytosis 0 Anisocytosis 0 Microcytosis 0 Macrocytosis 0 POC Glucometer 112 A/P Pneumonia - Health care acquired Suspected Chronic Aspiration Acute COPD Exacerbation HTN Hyperlipidemia Anxiety Recent Left Radial Fracture Mediastinal confluence: (?) affecting swallowing. Will need to R/O malignancy - GI evaluation - Agree with MBS: Medically stable for test - Check CXR - IV antibiotics per ID - inhaled bronchodilators - Medrol - O2 to keep SpO2 >90% - PPI and probiotic - aspiration precautions - DVT prophylaxis - Will need close follow up of mediastinal abnormality - Check AM labs Dr Robles Problem List - Problems (1) Acute bronchitis with COPD Code(s): J44.0 - CHRONIC OBSTRUCTIVE PULMON DISEASE W ACUTE LOWER RESP INFCT; J20.9 - ACUTE BRONCHITIS, UNSPECIFIED (2) Pneumonia Code(s): J18.9 - PNEUMONIA, UNSPECIFIED ORGANISM Qualifiers: Pneumonia type: due to unspecified organism (3) Altered mental status Code(s): R41.82 - ALTERED MENTAL STATUS, UNSPECIFIED Qualifiers: Altered mental status type: unspecified Qualified Code(s): R41.82 - Altered mental status, unspecified (4) Anemia Code(s): D64.9 - ANEMIA, UNSPECIFIED (5) Anxiety Code(s): F41.9 - ANXIETY DISORDER, UNSPECIFIED (6) COPD (chronic obstructive pulmonary disease) Code(s): J44.9 - CHRONIC OBSTRUCTIVE PULMONARY DISEASE, UNSPECIFIED (7) HLD (hyperlipidemia) Code(s): E78.5 - HYPERLIPIDEMIA, UNSPECIFIED (8) HTN (hypertension) Code(s): I10 - ESSENTIAL (PRIMARY) HYPERTENSION (9) UTI (urinary tract infection) Code(s): N39.0 - URINARY TRACT INFECTION, SITE NOT SPECIFIED Qualifiers: Urinary tract infection type: site unspecified Hematuria presence: without hematuria Qualified Code(s): N39.0 - Urinary tract infection, site not specified (10) Wrist fracture Code(s): S62.109A - FRACTURE OF UNSP CARPAL BONE, UNSP WRIST, INIT FOR CLOS FX Qualifiers: Encounter type: initial encounter Fracture type: closed Laterality: left Qualified Code(s): S62.102A - Fracture of unspecified carpal bone, left wrist , initial encounter for closed fracture
--- NOTE | 2019-04-22 11:30 | CON.GI ---
Consult Consult Specialty:: GI for Referred by:: Florentino Ventura Reason for Consultation:: dysphagia - History of Present Illness History of Present Illness: 74 y/o female with PMHx of HTN, HLD, Anxiety, COPD. She was admitted for Aspiration Pneumonia. Patient failed modified Barium swallow today with possible esophageal stricture. Patient also with paralyzed vocal cord. - History Source History Provided By: Patient, Family Member (--daughter) - Past Medical History Pulmonary: Yes: COPD. No: Asthma, Cancer, O2 Dependent, Previously Intubated, Pulmonary Embolus, Pulmonary Fibrosis, Sleep Apnea Renal/: Yes: Renal Inusuff ...: No - Alcohol/Substance Use Hx Alcohol Use: No - Smoking History Smoking history: Former smoker Have you smoked in the past 12 months: Yes Aproximately how many cigarettes per day: 20 If you are a former smoker, when did you quit?: Two weeks ago - Social History Usual Living Arrangement: With Spouse History of Recent Travel: No Home Medications - Allergies Allergies/Adverse Reactions: Allergies Allergy/AdvReac Type Severity Reaction Status Date / Time sulfur [From Sulfur-8] Allergy Verified 04/15/19 20:40 - Home Medications Home Medications: Ambulatory Orders Albuterol Sulfate Inhaler - [Ventolin HFA Inhaler -] 1 - 2 inh PO QID 04/04/19 Alprazolam [Xanax] 0.5 mg PO TID PRN 04/04/19 Fenofibric Acid [Trilipix -] 45 mg PO DAILY 04/04/19 Nebivolol HCl [Bystolic] 20 mg PO DAILY 04/04/19 Rosuvastatin [Crestor -] 10 mg PO DAILY 04/04/19 Hydralazine HCl 25 mg PO TID 04/11/19 Albuterol 2.5/Ipratropium 0.5 [Duoneb -] 1 amp NEB Q4H PRN #1 box 04/15/19 Physical Exam-GI Vital Signs: Vital Signs Temperature 98.6 F 04/22/19 10:00 Pulse Rate 90 04/22/19 10:00 Respiratory Rate 20 04/22/19 10:00 Blood Pressure 158/90 04/22/19 10:00 O2 Sat by Pulse Oximetry (%) 95 04/21/19 21:00 Constitutional: Yes: Cachectic Eyes: Yes: Conjunctiva Clear HENT: Yes: Atraumatic Neck: Yes: Supple Cardiovascular: Yes: Regular Rate and Rhythm Respiratory: Yes: Poor Air Entry, Rhonchi ...Palpate: Yes: Soft. No: Firm/Rigid, Guarding, Hepatomegaly, Mass, Pulsatile Mass, Splenomegaly, Tenderness Labs: CBC, BMP 04/21/19 06:50 04/21/19 06:50 INR, PTT INR 1.24 (0.83-1.09) H 04/15/19 21:00 Imaging - Results X-ray: Report Reviewed Problem List - Problems (1) Dysphagia Assessment/Plan: r/o esophageal stricture vs neoplasm R> will need EGD once cleared by Pulmonary to r/o intrinsic vs extrinsic lesion, patient with mediastinal lymph adenopathy d/w Dr Villafuerte Code(s): R13.10 - DYSPHAGIA, UNSPECIFIED
--- NOTE | 2019-04-22 14:16 | PN ---
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 Pt had PNA a month a a half ago, with hoarse voice. Seen by ENT, Dr. Blackburn who told them that her left vocal cord was paralyzed at midline. CT head/chest/neck performed. Pt refused PET scan. Occasionally solids got stuck and she would drink to clear. Pt stopped being able to swallow 2 days ago. Baseline cognition WNL. Now with significant memory deficits. MBS results reviewed with Dr. Villafuerte and Primary Nurse. Impaired esophageal emptying -r/o food impaction/obstruction. Maintain upright, stict NPO including medication. Pending GI assessment.
[2019-04-22] MEDS ORDERED: LORazepam 2 MG/ML SDV VIAL IVPUSH ONE (20:15)
[2019-04-22] MEDS: METOPROLOL TARTRATE 5 MG/5 ML VIAL IVPB SCH (22:38)
[2019-04-23] MEDS: ALBUTEROL SO4 0.083% IH SOL 2.5 MG/3 ML VIAL.NEB. NEB PRN ×3 (00:34→18:00)
[2019-04-23] MEDS ORDERED: PIPERACILLIN/TAZOBACTAM 3.375 GM VIAL IVPB ONE ×3 (01:53→19:29)
[2019-04-23] MEDS ORDERED: DEXTROSE 5%-WATER - 50 ML IVPB ONE ×3 (01:53→19:29)
[2019-04-23] MEDS: PIPERACILLIN/TAZOB 3.375 GM 3.375 GM in DEXTROSE 5%-WATER - 50 ML IVPB SCH ×3 (02:18→19:05)
[2019-04-23] MEDS: METOPROLOL TARTRATE 5 MG/5 ML VIAL IVPB SCH ×6 (02:49→23:39)
[2019-04-23] MEDS: ALBUTEROL SO4 2.5/IPRATROPIUM 0.5 INH SOL 3 ML VIAL.NEB. NEB SCH ×4 (08:22→21:20)
[2019-04-23 08:57] LABS: BASO % 0.1 % (0-2.0); HEMATOCRIT 34.3 % (32.4-45.2); HEMOGLOBIN 11.1 GM/dL (10.7-15.3); LYMPH % 2.5 % (8-40); MCH 27.4 pg (25.7-33.7); MCHC 32.5 g/dl (32.0-36.0); MEAN CELL VOLUME 84.2 fl (80-96); MONO % 3.6 % (3.8-10.2); NEUT % 93.8 % (42.8-82.8); PLATELET COUNT 277 K/MM3 (134-434); RBC 4.07 M/mm3 (3.60-5.2); WHITE BLOOD COUNT 19.4 K/mm3 (4.0-10.0)
[2019-04-23 09:33] LABS: ALBUMIN 2.9 g/dl (3.4-5.0); BILIRUBIN,TOTAL 0.6 mg/dL (0.2-1); CALCIUM 9.6 mg/dL (8.5-10.1); MAGNESIUM 2.4 mg/dL (1.8-2.4); PHOSPHOROUS 2.6 mg/dL (2.5-4.9); POTASSIUM 3.4 mmol/L (3.5-5.1); TOT PROT 6.6 g/dl (6.4-8.2)
[2019-04-23] MEDS: HEPARIN NA (PORCINE) 5,000 UNITS/ML 1ML VIAL SQ SCH ×2 (09:41→23:27)
[2019-04-23] MEDS: PANTOPRAZOLE SODIUM 40 MG VIAL IVPB SCH ×2 (09:41→23:33)
[2019-04-23] MEDS: methylPREDNISolone NA SUCC 40 MG/1 ML VIAL IVPUSH SCH ×2 (11:00→23:28)
[2019-04-23] MEDS ORDERED: D5-1/2NS+20 MEQ KCL - 20 MEQ/1,000 ML INFUS.BAG IV SCH (11:30)
[2019-04-23 12:00] LABS: ANISOCYTOSIS 1+; MACROCYTOSIS 0; OVALOCYTE 1+; PLATELET ESTIMATE NORMAL
[2019-04-23] MEDS: LORazepam 2 MG/ML SDV VIAL IVPUSH PRN ×2 (12:26→23:31)
[2019-04-23] MEDS: KCL 10 MEQ IVPB 10 MEQ/100 ML INFUS.BAG IVPB SCH ×2 (12:28→14:57)
--- NOTE | 2019-04-23 13:54 | PN.GI ---
GI Progress Note Subjective: GI NOte: Given what appears ot be a high grade esophageal obstruction I discussed the case with Dr Villafuerte who will pulmonarily prepare the patient for an emergent EGD to relieve the impaction. I discussed EGD for the purpose of extracting foreign body material and to biopsy and dilate the esophagus of a stricture amenable to dilation is found. I have discussed the procedure in detail with Isis , her and her daughter. I have informed them of the need for intubation and the risks of perforation and hemorrhage. I also informed her that if the impaction is too large that she will need to remain intubated until a rigid esophagoscopy can be performed. She has signed an informed consent and I will do the procedure LULA. Given her apparent recurrent laryngeal nerve paralysis, her weight loss and subcarinal node I suspect that she has a malignancy extrinsic to the esophagus causing this problem. She has never had an EGD or a colonoscopy and denies any h /o heartburn. She has had dysphagia and regurgitation for weeks. - Objective Vital Signs: Vital Signs Temperature 97.4 F L 04/23/19 09:29 Pulse Rate 95 H 04/23/19 12:00 Respiratory Rate 18 04/23/19 12:00 Blood Pressure 165/90 04/23/19 12:00 O2 Sat by Pulse Oximetry (%) 97 04/22/19 21:00 Laboratory Tests 04/15/19 04/23/19 04/23/19 21:00 08:35 08:35 WBC 14.7 H 19.4 H Hct 31.0 L D 34.3 Potassium 3.4 L Albumin 2.9 L Constitutional: Anxious Eyes: Yes: Conjunctiva Clear HENT: Yes: Atraumatic Neck: Yes: Trachea Midline Cardiovascular: Yes: Regular Rate and Rhythm Respiratory: Yes: Wheezes ...Auscultate: Yes: Normoactive Bowel Sounds ...Palpate: Yes: Soft, Other (nontender) ...Rectal Exam: Yes: Deferred Labs: CBC, BMP 04/23/19 08:35 04/23/19 08:35 INR, PTT INR 1.24 (0.83-1.09) H 04/15/19 21:00 Assessment/Plan Assessment: -- Given her apparent recurrent laryngeal nerve paralysis and mediastinal adenopathy I suspect that he patient has a lung malignancy causing an extrinsic compression of the esophagus as the cause of her dysphagia/esophageal obstruction. Plan: -- EGD LULA- informed consent obtained -- Discussed case with Dr Villafuerte. We discussed the likely need for a chest surgeon Problem List - Problems (1) Esophageal obstruction Code(s): K22.2 - ESOPHAGEAL OBSTRUCTION (2) Weight loss Code(s): R63.4 - ABNORMAL WEIGHT LOSS (3) Vocal cord paralysis Code(s): J38.00 - PARALYSIS OF VOCAL CORDS AND LARYNX, UNSPECIFIED (4) Dysphagia Code(s): R13.10 - DYSPHAGIA, UNSPECIFIED (5) COPD (chronic obstructive pulmonary disease) Code(s): J44.9 - CHRONIC OBSTRUCTIVE PULMONARY DISEASE, UNSPECIFIED (6) HLD (hyperlipidemia) Code(s): E78.5 - HYPERLIPIDEMIA, UNSPECIFIED (7) HTN (hypertension) Code(s): I10 - ESSENTIAL (PRIMARY) HYPERTENSION (8) Lung mass Code(s): R91.8 - OTHER NONSPECIFIC ABNORMAL FINDING OF LUNG FIELD
--- NOTE | 2019-04-23 14:25 | PN ---
Progress Note, Physician History of Present Illness: AWAKE,ALERT IN BED GENERALIZED WEAKNESS OCCASIONAL COUGH, WHITE SPUTUM PRODUCTION NO C/O CHEST PAIN/ DYSPNEA NO C/O FEVER/ CHILLS AFEBRILE WBC REMAINS ELEVATED BC NO GROWTH - Current Medication List Current Medications: Active Medications Acetaminophen (Tylenol -) 650 mg PO Q4H PRN PRN Reason: PAIN OR FEVER Albuterol Sulfate (Ventolin 0.083% Nebulizer Soln -) 1 amp NEB Q4H PRN PRN Reason: SHORT OF BREATH/WHEEZING Last Admin: 04/23/19 13:42 Dose: 1 amp Albuterol/Ipratropium (Duoneb -) 1 amp NEB RQID RAUL Last Admin: 04/23/19 11:36 Dose: 1 amp Alprazolam (Xanax -) 0.5 mg PO Q12H PRN PRN Reason: ANXIETY Last Admin: 04/22/19 09:46 Dose: 0.5 mg Benzocaine/Menthol (Cepacol Lozenge -) 1 each MM Q6H PRN PRN Reason: SORE THROAT Last Admin: 04/21/19 11:28 Dose: 1 each Fenofibric Acid (Trilipix -) 45 mg PO DAILY [facility]UL Last Admin: 04/22/19 09:25 Dose: 45 mg Heparin Sodium (Porcine) (Heparin -) 5,000 unit SQ BID RAUL Last Admin: 04/23/19 09:41 Dose: 5,000 unit Hydralazine HCl (Apresoline -) 25 mg PO TID RAUL Last Admin: 04/22/19 15:10 Dose: Not Given Piperacillin Sod/Tazobactam (Sod 3.375 gm/ Dextrose) 50 mls @ 100 mls/hr IVPB Q8H-IV RAUL; Protocol Last Admin: 04/23/19 09:41 Dose: 100 mls/hr Potassium Chloride/Dextrose/Sod Cl (D5-1/2ns+20 Meq Kcl -) 20 meq in 1,000 mls @ 75 mls/hr IV ASDIR RAUL Last Admin: 04/23/19 12:27 Dose: 75 mls/hr Lactobacillus Acidophilus (Bacid -) 1 tab PO DAILY [facility] Last Admin: 04/22/19 09:21 Dose: 1 tab Lorazepam (Ativan Injection -) 1 mg IVPUSH Q6H PRN PRN Reason: ANXIETY Last Admin: 04/23/19 12:26 Dose: 1 mg Methylprednisolone Sodium Succinate (Solu-Medrol -) 30 mg IVPUSH BID [facility] Last Admin: 04/23/19 11:00 Dose: 30 mg Metoprolol Tartrate (Lopressor Injection -) 5 mg IVPB Q4H-IV RAUL Nebivolol (Bystolic -) 20 mg PO DAILY [facility] Last Admin: 04/22/19 09:25 Dose: 20 mg Pantoprazole Sodium (Protonix Iv) 40 mg IVPB BID [facility] Last Admin: 04/23/19 09:41 Dose: 40 mg Polyethylene Glycol (Miralax (For Daily Use) -) 17 gm PO DAILY [facility] Last Admin: 04/22/19 09:20 Dose: Not Given Rosuvastatin Calcium (Crestor -) 10 mg PO HS [facility] Last Admin: 04/21/19 22:43 Dose: 10 mg Sucralfate (Carafate Oral Suspension -) 1 gm PO Q6HPO [facility] Last Admin: 04/22/19 17:16 Dose: Not Given - Objective Vital Signs: Vital Signs Temperature 97.4 F L 04/23/19 09:29 Pulse Rate 95 H 04/23/19 12:00 Respiratory Rate 18 04/23/19 12:00 Blood Pressure 165/90 04/23/19 12:00 O2 Sat by Pulse Oximetry (%) 97 04/22/19 21:00 Constitutional: Yes: No Distress Eyes: Yes: Conjunctiva Clear Cardiovascular: Yes: Regular Rate and Rhythm, S1, S2 Respiratory: Yes: Other (+ RALES, BASES BILAT) Edema: No Labs: CBC, BMP 04/23/19 08:35 04/23/19 08:35 INR, PTT INR 1.24 (0.83-1.09) H 04/15/19 21:00 Assessment/Plan BIBASILAR PNEUMONIA ESOPHAGEAL OBSTRUCTION GENERALIZED WEAKNESS/ DEBILITATION/ FALLS LEUKOCYTOSIS FOR EGD TODAY CONTINUE EMPIRIC ZOSYN
--- NOTE | 2019-04-23 14:25 | PN ---
Progress Note (short form) - Note Progress Note: PULMONARY Breathing better. Still with cough and wheezing. No fevers or chills. Vital Signs Period Temp Pulse Resp BP Sys/Valle Pulse Ox Last 24 Hr 97.4 F-98.5 F 91-95 18-21 156-198/90-103 97 Gen: NAD at rest Heart: RRR Lung: bilateral rhonchi Abd: soft, nontender Ext: no edema CBC, BMP 04/23/19 08:35 04/23/19 08:35 Active Medications Acetaminophen (Tylenol -) 650 mg PO Q4H PRN PRN Reason: PAIN OR FEVER Albuterol Sulfate (Ventolin 0.083% Nebulizer Soln -) 1 amp NEB Q4H PRN PRN Reason: SHORT OF BREATH/WHEEZING Last Admin: 04/23/19 13:42 Dose: 1 amp Albuterol/Ipratropium (Duoneb -) 1 amp NEB RQID RAUL Last Admin: 04/23/19 11:36 Dose: 1 amp Alprazolam (Xanax -) 0.5 mg PO Q12H PRN PRN Reason: ANXIETY Last Admin: 04/22/19 09:46 Dose: 0.5 mg Benzocaine/Menthol (Cepacol Lozenge -) 1 each MM Q6H PRN PRN Reason: SORE THROAT Last Admin: 04/21/19 11:28 Dose: 1 each Fenofibric Acid (Trilipix -) 45 mg PO DAILY [facility] Last Admin: 04/22/19 09:25 Dose: 45 mg Heparin Sodium (Porcine) (Heparin -) 5,000 unit SQ BID RAUL Last Admin: 04/23/19 09:41 Dose: 5,000 unit Hydralazine HCl (Apresoline -) 25 mg PO TID [facility] Last Admin: 04/22/19 15:10 Dose: Not Given Piperacillin Sod/Tazobactam (Sod 3.375 gm/ Dextrose) 50 mls @ 100 mls/hr IVPB Q8H-IV RAUL; Protocol Last Admin: 04/23/19 09:41 Dose: 100 mls/hr Potassium Chloride/Dextrose/Sod Cl (D5-1/2ns+20 Meq Kcl -) 20 meq in 1,000 mls @ 75 mls/hr IV ASDIR RAUL Last Admin: 04/23/19 12:27 Dose: 75 mls/hr Lactobacillus Acidophilus (Bacid -) 1 tab PO DAILY [facility] Last Admin: 04/22/19 09:21 Dose: 1 tab Lorazepam (Ativan Injection -) 1 mg IVPUSH Q6H PRN PRN Reason: ANXIETY Last Admin: 04/23/19 12:26 Dose: 1 mg Methylprednisolone Sodium Succinate (Solu-Medrol -) 30 mg IVPUSH BID [facility] Last Admin: 04/23/19 11:00 Dose: 30 mg Metoprolol Tartrate (Lopressor Injection -) 5 mg IVPB Q4H-IV RAUL Nebivolol (Bystolic -) 20 mg PO DAILY [facility] Last Admin: 04/22/19 09:25 Dose: 20 mg Pantoprazole Sodium (Protonix Iv) 40 mg IVPB BID [facility] Last Admin: 04/23/19 09:41 Dose: 40 mg Polyethylene Glycol (Miralax (For Daily Use) -) 17 gm PO DAILY [facility] Last Admin: 04/22/19 09:20 Dose: Not Given Rosuvastatin Calcium (Crestor -) 10 mg PO HS [facility] Last Admin: 04/21/19 22:43 Dose: 10 mg Sucralfate (Carafate Oral Suspension -) 1 gm PO Q6HPO [facility] Last Admin: 04/22/19 17:16 Dose: Not Given A/P Pneumonia - Health care acquired r/o Aspiration Acute COPD Exacerbation HTN Hyperlipidemia Anxiety Recent Left Radial Fracture - antibiotics per ID - f/u cultures - inhaled bronchodilators - continue medrol - O2 to keep SpO2 >90% - for EGD - aspiration precautions - thoracic eval - DVT prophylaxis
--- NOTE | 2019-04-23 15:01 | PN ---
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 Ames. Pt NPO. For EGD today.
[2019-04-23] MEDS: LABETALOL HCL 5 MG/1 ML (100MG/20 ML VIAL) IVPUSH ONE ×3 (17:50→23:25)
[2019-04-23] MEDS ORDERED: ALBUTEROL SO4 0.083% IH SOL 2.5 MG/3 ML VIAL.NEB. NEB ONE ×2 (18:04→18:07)
[2019-04-23] MEDS ORDERED: ONDANSETRON 4 MG/2 ML VIAL IVPUSH PRN (18:04)
[2019-04-23] MEDS ORDERED: LACTATED RINGERS SOLUTION 1,000 ML IV SCH (18:15)
--- NOTE | 2019-04-23 18:16 | PN ---
Progress Note (short form) - Note Progress Note: GI Procedure NOte: Please see EGD report. The patien't esophagus was full of food from the top to the bottom. It took 120 minutes to disempact the esophagus after which a flaccid dilated esophagus was found suggesting achalasia or perhaps pseudoachalasia which is usually associated with malignancy. No strictures or neoplasms were found. Will keep NPO until an eosphagram can be done. Findings discussed with patient, family and Dr Villafuerte. Problem List - Problems (1) Esophageal obstruction Code(s): K22.2 - ESOPHAGEAL OBSTRUCTION (2) Weight loss Code(s): R63.4 - ABNORMAL WEIGHT LOSS (3) Vocal cord paralysis Code(s): J38.00 - PARALYSIS OF VOCAL CORDS AND LARYNX, UNSPECIFIED (4) Dysphagia Code(s): R13.10 - DYSPHAGIA, UNSPECIFIED (5) COPD (chronic obstructive pulmonary disease) Code(s): J44.9 - CHRONIC OBSTRUCTIVE PULMONARY DISEASE, UNSPECIFIED (6) HLD (hyperlipidemia) Code(s): E78.5 - HYPERLIPIDEMIA, UNSPECIFIED (7) HTN (hypertension) Code(s): I10 - ESSENTIAL (PRIMARY) HYPERTENSION (8) Lung mass Code(s): R91.8 - OTHER NONSPECIFIC ABNORMAL FINDING OF LUNG FIELD
[2019-04-23] MEDS: D5-1/2NS+20 MEQ KCL - 20 MEQ/1,000 ML INFUS.BAG IV SCH (23:24)
[2019-04-24] MEDS ORDERED: PIPERACILLIN/TAZOBACTAM 3.375 GM VIAL IVPB ONE ×3 (01:38→17:05)
[2019-04-24] MEDS ORDERED: DEXTROSE 5%-WATER - 50 ML IVPB ONE ×3 (01:38→17:05)
[2019-04-24] MEDS: PIPERACILLIN/TAZOB 3.375 GM 3.375 GM in DEXTROSE 5%-WATER - 50 ML IVPB SCH ×3 (02:40→17:26)
[2019-04-24] MEDS: METOPROLOL TARTRATE 5 MG/5 ML VIAL IVPB SCH ×6 (02:51→23:19)
[2019-04-24] MEDS: D5-1/2NS+20 MEQ KCL - 20 MEQ/1,000 ML INFUS.BAG IV SCH (04:46)
[2019-04-24] MEDS: ALBUTEROL SO4 0.083% IH SOL 2.5 MG/3 ML VIAL.NEB. NEB PRN (05:35)
[2019-04-24 08:14] LABS: HEMATOCRIT 32.5 % (32.4-45.2); HEMOGLOBIN 10.6 GM/dL (10.7-15.3); LYMPH % 2.6 % (8-40); MCH 27.9 pg (25.7-33.7); MCHC 32.7 g/dl (32.0-36.0); MEAN CELL VOLUME 85.3 fl (80-96); MEAN PLT VOLUME 7.1 fl (7.5-11.1); MONO % 3.7 % (3.8-10.2); NEUT % 93.7 % (42.8-82.8); PLATELET COUNT 236 K/MM3 (134-434); RDW 16.6 % (11.6-15.6); WHITE BLOOD COUNT 16.7 K/mm3 (4.0-10.0)
[2019-04-24 08:28] LABS: ALBUMIN 2.5 g/dl (3.4-5.0); BILIRUBIN,TOTAL 0.7 mg/dL (0.2-1); BLOOD UREA NITROGEN 30.8 mg/dL (7-18); CALCIUM 8.5 mg/dL (8.5-10.1); CREATININE 1.1 mg/dL (0.55-1.3); MAGNESIUM 1.9 mg/dL (1.8-2.4); PHOSPHOROUS 1.7 mg/dL (2.5-4.9); POTASSIUM 3.8 mmol/L (3.5-5.1)
[2019-04-24] MEDS: LORazepam 2 MG/ML SDV VIAL IVPUSH PRN ×3 (08:32→23:47)
[2019-04-24] MEDS: ALBUTEROL SO4 2.5/IPRATROPIUM 0.5 INH SOL 3 ML VIAL.NEB. NEB SCH ×4 (08:38→21:45)
[2019-04-24] MEDS: methylPREDNISolone NA SUCC 40 MG/1 ML VIAL IVPUSH SCH ×2 (09:04→17:16)
[2019-04-24] MEDS: PANTOPRAZOLE SODIUM 40 MG VIAL IVPB SCH ×2 (09:10→23:17)
[2019-04-24] MEDS: HEPARIN NA (PORCINE) 5,000 UNITS/ML 1ML VIAL SQ SCH ×2 (09:16→23:22)
--- NOTE | 2019-04-24 09:58 | PN ---
Progress Note (short form) - Note Progress Note: PULMONARY EGD findings noted, GI input appreciated. Pt insistent on going home. at bedside. Vital Signs Period Temp Pulse Resp BP Sys/Valle Pulse Ox Last 24 Hr 97.5 F-98.6 F 78-95 14-22 129-198/74-105 92-97 Gen: NAD at rest Heart: RRR Lung: bilateral rhonchi Abd: soft, nontender Ext: no edema CBC, BMP 04/24/19 07:37 04/24/19 07:37 Active Medications Acetaminophen (Tylenol -) 650 mg PO Q4H PRN PRN Reason: PAIN OR FEVER Albuterol Sulfate (Ventolin 0.083% Nebulizer Soln -) 1 amp NEB Q4H PRN PRN Reason: SHORT OF BREATH/WHEEZING Last Admin: 04/24/19 05:35 Dose: 1 amp Albuterol/Ipratropium (Duoneb -) 1 amp NEB RQID [facility]UL Last Admin: 04/24/19 08:38 Dose: 1 amp Alprazolam (Xanax -) 0.5 mg PO Q12H PRN PRN Reason: ANXIETY Last Admin: 04/22/19 09:46 Dose: 0.5 mg Benzocaine/Menthol (Cepacol Lozenge -) 1 each MM Q6H PRN PRN Reason: SORE THROAT Last Admin: 04/21/19 11:28 Dose: 1 each Fenofibric Acid (Trilipix -) 45 mg PO DAILY [facility] Last Admin: 04/22/19 09:25 Dose: 45 mg Heparin Sodium (Porcine) (Heparin -) 5,000 unit SQ BID [facility] Last Admin: 04/24/19 09:16 Dose: 5,000 unit Hydralazine HCl (Apresoline -) 25 mg PO TID [facility] Last Admin: 04/22/19 15:10 Dose: Not Given Piperacillin Sod/Tazobactam (Sod 3.375 gm/ Dextrose) 50 mls @ 100 mls/hr IVPB Q8H-IV RAUL; Protocol Last Admin: 04/24/19 09:15 Dose: 100 mls/hr Potassium Chloride/Dextrose/Sod Cl (D5-1/2ns+20 Meq Kcl -) 20 meq in 1,000 mls @ 125 mls/hr IV ASDIR RAUL Last Admin: 04/24/19 04:46 Dose: 125 mls/hr Lactobacillus Acidophilus (Bacid -) 1 tab PO DAILY [facility] Last Admin: 04/22/19 09:21 Dose: 1 tab Lorazepam (Ativan Injection -) 1 mg IVPUSH Q6H PRN PRN Reason: ANXIETY Last Admin: 04/24/19 08:32 Dose: 1 mg Methylprednisolone Sodium Succinate (Solu-Medrol -) 30 mg IVPUSH BID [facility] Last Admin: 04/24/19 09:04 Dose: 30 mg Metoprolol Tartrate (Lopressor Injection -) 5 mg IVPB Q4H-IV [facility] Last Admin: 04/24/19 06:30 Dose: 5 mg Nebivolol (Bystolic -) 20 mg PO DAILY [facility] Last Admin: 04/22/19 09:25 Dose: 20 mg Ondansetron HCl (Zofran Injection) 4 mg IVPUSH Q6H PRN PRN Reason: NAUSEA AND/OR VOMITING Pantoprazole Sodium (Protonix Iv) 40 mg IVPB BID [facility] Last Admin: 04/24/19 09:10 Dose: 40 mg Polyethylene Glycol (Miralax (For Daily Use) -) 17 gm PO DAILY [facility] Last Admin: 04/22/19 09:20 Dose: Not Given Rosuvastatin Calcium (Crestor -) 10 mg PO HS [facility] Last Admin: 04/21/19 22:43 Dose: 10 mg A/P Pneumonia - Health care acquired Aspiration Acute COPD Exacerbation 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
[2019-04-24] MEDS ORDERED: POTASSIUM PHOSPHATE 30 MM in DEXTROSE 5%-WATER - 500 ML IVPB ONE (11:00)
[2019-04-24] MEDS ORDERED: POTASSIUM PHOSPHATE 30 MM in DEXTROSE 5%-WATER - 250 ML IVPB ONE (11:00)
[2019-04-24 12:20] LABS: ANISOCYTOSIS 0; HELMET CELLS 0; HOWELL-JOLLY BODIES 0; MACROCYTOSIS 0; OVALOCYTE 0; PLATELET ESTIMATE NORMAL; ROULEAU 0; SICKELED CELLS 0; TARGET CELLS 0; TEAR DROP CELLS 0; TOXIC GRANULATION 0
--- NOTE | 2019-04-24 13:24 | CONSULT ---
Consult Consult Specialty:: Thoracic Surgery Referred by:: Pulmonary (Christo) Reason for Consultation:: Mediastinal adenopathy and dysphagia - History of Present Illness Chief Complaint: dysphagia x months, weight loss History of Present Illness: 74F with COPD, HTN, anxiety, recent right recurrent nerve palsy, dysphagia x 3 months, weight loss 10lbs x 1 month, admitted in hospital in last [address] showed large mediastinal adenopathy possibly causing obstruction in the esophagus. EGD last night emptied food by Dr. Ames over 2 hours. No fevers, night sweats. - History Source History Provided By: Patient, Family Member Limitations to Obtaining History: No Limitations - Past Medical History Pulmonary: Yes: COPD. No: Asthma, Cancer, O2 Dependent, Previously Intubated, Pulmonary Embolus, Pulmonary Fibrosis, Sleep Apnea Gastrointestinal: Yes: Other (dysphagia) Renal/: Yes: Renal Inusuff ...: No - Alcohol/Substance Use Hx Alcohol Use: No - Smoking History Smoking history: Former smoker Have you smoked in the past 12 months: Yes Aproximately how many cigarettes per day: 20 If you are a former smoker, when did you quit?: Two weeks ago - Social History Usual Living Arrangement: With Spouse History of Recent Travel: No Home Medications - Allergies Allergies/Adverse Reactions: Allergies Allergy/AdvReac Type Severity Reaction Status Date / Time sulfur [From Sulfur-8] Allergy Verified 04/15/19 20:40 - Home Medications Home Medications: Ambulatory Orders Albuterol Sulfate Inhaler - [Ventolin HFA Inhaler -] 1 - 2 inh PO QID 04/04/19 Alprazolam [Xanax] 0.5 mg PO TID PRN 04/04/19 Fenofibric Acid [Trilipix -] 45 mg PO DAILY 04/04/19 Nebivolol HCl [Bystolic] 20 mg PO DAILY 04/04/19 Rosuvastatin [Crestor -] 10 mg PO DAILY 04/04/19 Hydralazine HCl 25 mg PO TID 04/11/19 Albuterol 2.5/Ipratropium 0.5 [Duoneb -] 1 amp NEB Q4H PRN #1 box 04/15/19 Family Disease History - Family Disease History Family History: Unremarkable Review of Systems - Review of Systems Constitutional: reports: Unintentional Wgt. Loss HENT: reports: Difficult Swallowing Neck: reports: No Symptoms Cardiovascular: reports: No Symptoms Respiratory: reports: No Symptoms Gastrointestinal: reports: Dysphagia Physical Exam Vital Signs: Vital Signs Temperature 98.6 F 04/24/19 09:25 Pulse Rate 78 04/24/19 10:07 Respiratory Rate 18 04/24/19 09:25 Blood Pressure 165/98 04/24/19 10:07 O2 Sat by Pulse Oximetry (%) 96 04/23/19 21:00 Constitutional: Yes: Cachectic Neck: Yes: Supple Cardiovascular: Yes: Regular Rate and Rhythm Respiratory: Yes: Rhonchi Gastrointestinal: Yes: Soft Labs: CBC, BMP 04/24/19 07:37 04/24/19 07:37 Imaging - Results X-ray: Image Reviewed Cat Scan: Image Reviewed Problem List - Problems (1) Mediastinal lymphadenopathy Code(s): R59.0 - LOCALIZED ENLARGED LYMPH NODES (2) Mediastinal lymphadenopathy Code(s): R59.0 - LOCALIZED ENLARGED LYMPH NODES (3) Acute bronchitis with COPD Code(s): J44.0 - CHRONIC OBSTRUCTIVE PULMON DISEASE W ACUTE LOWER RESP INFCT; J20.9 - ACUTE BRONCHITIS, UNSPECIFIED (4) Dysphagia Code(s): R13.10 - DYSPHAGIA, UNSPECIFIED (5) Esophageal obstruction Code(s): K22.2 - ESOPHAGEAL OBSTRUCTION (6) Vocal cord paralysis Code(s): J38.00 - PARALYSIS OF VOCAL CORDS AND LARYNX, UNSPECIFIED (7) Weight loss Code(s): R63.4 - ABNORMAL WEIGHT LOSS Assessment/Plan 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 Ames's recommendation for NPO; Ultimately needs LN biopsy, recommend EUS to deal with GE jxn as well concomitantly or PEG.
[2019-04-24] MEDS: BENZOCAINE/MENTH/CETYLPYRD CL 1 EACH LOZENGE MM PRN ×2 (13:26→18:48)
--- NOTE | 2019-04-24 14:46 | PN.GI ---
GI Progress Note Subjective: GI NOte: The esophagram confirms achalasia, None of the barium passed so drinking and feeding is not yet possible. She will need therapy for this with options being Botox injection, balloon disruption at the GE junction or endoscopic myotomy. We discussed that this would best be undertaken at a tertiary care center given the complexity of her case. This was offered by Dr. Byrd but declined by the patient. - Objective Vital Signs: Vital Signs Temperature 98.6 F 04/24/19 09:25 Pulse Rate 78 04/24/19 10:07 Respiratory Rate 18 04/24/19 09:25 Blood Pressure 165/98 04/24/19 10:07 O2 Sat by Pulse Oximetry (%) 96 04/23/19 21:00 Constitutional: Anxious Cardiovascular: Yes: Regular Rate and Rhythm Respiratory: Yes: Rhonchi ...Auscultate: Yes: Normoactive Bowel Sounds ...Palpate: Yes: Soft, Other (nontender) Labs: CBC, BMP 04/24/19 07:37 04/24/19 07:37 INR, PTT INR 1.24 (0.83-1.09) H 04/15/19 21:00 Assessment/Plan Assessment: - S/P Prolonged esophageal food disempaction. 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 Plan: -- Discussed case with the patient, her , and daughters with Dr Villafuerte and Dr Byrd. I have strongly advised transfer to a tertiary care center for definitive achalasia therapy and further investigation and treatment of suspect lung malignancy. She may also need bronchoscopy for pulmonary toilet. Must be NPO until achalasia is managed. If transfer is delayed may insert soft feeding tube. Will get chest x-ray tomorrow to look for hopeful barium passage Problem List - Problems (1) Achalasia Code(s): K22.0 - ACHALASIA OF CARDIA (2) Esophageal obstruction Code(s): K22.2 - ESOPHAGEAL OBSTRUCTION (3) Weight loss Code(s): R63.4 - ABNORMAL WEIGHT LOSS (4) Vocal cord paralysis Code(s): J38.00 - PARALYSIS OF VOCAL CORDS AND LARYNX, UNSPECIFIED (5) Dysphagia Code(s): R13.10 - DYSPHAGIA, UNSPECIFIED (6) COPD (chronic obstructive pulmonary disease) Code(s): J44.9 - CHRONIC OBSTRUCTIVE PULMONARY DISEASE, UNSPECIFIED (7) HLD (hyperlipidemia) Code(s): E78.5 - HYPERLIPIDEMIA, UNSPECIFIED (8) HTN (hypertension) Code(s): I10 - ESSENTIAL (PRIMARY) HYPERTENSION (9) Lung mass Code(s): R91.8 - OTHER NONSPECIFIC ABNORMAL FINDING OF LUNG FIELD
[2019-04-24] MEDS ORDERED: PT OWN MED DRAWER 7, Y5N ONE (16:32)
[2019-04-24] MEDS: AMINO ACIDS 4.25%/D5W 1,000 ML IV SCH ×2 (23:22→23:25)
[2019-04-25] MEDS ORDERED: DEXTROSE 5%-WATER - 50 ML IVPB ONE ×2 (02:35→10:16)
[2019-04-25] MEDS ORDERED: PIPERACILLIN/TAZOBACTAM 3.375 GM VIAL IVPB ONE ×2 (02:35→10:16)
[2019-04-25] MEDS: methylPREDNISolone NA SUCC 40 MG/1 ML VIAL IVPUSH SCH ×2 (02:42→10:26)
[2019-04-25] MEDS: METOPROLOL TARTRATE 5 MG/5 ML VIAL IVPB SCH ×4 (02:43→13:02)
[2019-04-25] MEDS: PIPERACILLIN/TAZOB 3.375 GM 3.375 GM in DEXTROSE 5%-WATER - 50 ML IVPB SCH ×2 (02:44→10:26)
[2019-04-25] MEDS: ALBUTEROL SO4 2.5/IPRATROPIUM 0.5 INH SOL 3 ML VIAL.NEB. NEB SCH ×2 (08:05→11:35)
[2019-04-25 09:12] LABS: BASO % 0.2 % (0-2.0); HEMATOCRIT 32.9 % (32.4-45.2); HEMOGLOBIN 10.8 GM/dL (10.7-15.3); LYMPH % 2.1 % (8-40); MCH 27.9 pg (25.7-33.7); MCHC 32.8 g/dl (32.0-36.0); MEAN PLT VOLUME 7.6 fl (7.5-11.1); MONO % 2.4 % (3.8-10.2); NEUT % 95.3 % (42.8-82.8); PLATELET COUNT 222 K/MM3 (134-434); RBC 3.87 M/mm3 (3.60-5.2); RDW 16.4 % (11.6-15.6); WHITE BLOOD COUNT 18.9 K/mm3 (4.0-10.0)
[2019-04-25 09:40] LABS: ALBUMIN 2.5 g/dl (3.4-5.0); BILIRUBIN,TOTAL 0.7 mg/dL (0.2-1); BLOOD UREA NITROGEN 27.3 mg/dL (7-18); CALCIUM 8.5 mg/dL (8.5-10.1); CREATININE 0.9 mg/dL (0.55-1.3); MAGNESIUM 1.8 mg/dL (1.8-2.4); PHOSPHOROUS 2.2 mg/dL (2.5-4.9); POTASSIUM 3.8 mmol/L (3.5-5.1); TOT PROT 6.1 g/dl (6.4-8.2)
--- NOTE | 2019-04-25 09:53 | PN ---
Progress Note (short form) - Note Progress Note: PULMONARY Thoracic surgery input appreciated. Family agreeable to transfer for EBUS/EUS. Vital Signs Period Temp Pulse Resp BP Sys/Valle Pulse Ox Last 24 Hr 97.5 F-99.1 F 78-86 18-18 157-184/72-98 98 Gen: mildly tachypneic at rest Heart: RRR Lung: bilateral rhonchi Abd: soft, nontender Ext: no edema CBC, BMP 04/25/19 08:15 04/25/19 08:15 Active Medications Acetaminophen (Tylenol -) 650 mg PO Q4H PRN PRN Reason: PAIN OR FEVER Albuterol Sulfate (Ventolin 0.083% Nebulizer Soln -) 1 amp NEB Q4H PRN PRN Reason: SHORT OF BREATH/WHEEZING Last Admin: 04/24/19 05:35 Dose: 1 amp Albuterol/Ipratropium (Duoneb -) 1 amp NEB RQID RAUL Last Admin: 04/25/19 08:05 Dose: 1 amp Alprazolam (Xanax -) 0.5 mg PO Q12H PRN PRN Reason: ANXIETY Last Admin: 04/22/19 09:46 Dose: 0.5 mg Benzocaine/Menthol (Cepacol Lozenge -) 1 each MM Q6H PRN PRN Reason: SORE THROAT Last Admin: 04/24/19 18:48 Dose: 1 each Fenofibric Acid (Trilipix -) 45 mg PO DAILY [facility] Last Admin: 04/22/19 09:25 Dose: 45 mg Heparin Sodium (Porcine) (Heparin -) 5,000 unit SQ BID RAUL Last Admin: 04/24/19 23:22 Dose: 5,000 unit Hydralazine HCl (Apresoline -) 25 mg PO TID RAUL Last Admin: 04/22/19 15:10 Dose: Not Given Piperacillin Sod/Tazobactam (Sod 3.375 gm/ Dextrose) 50 mls @ 100 mls/hr IVPB Q8H-IV RAUL; Protocol Last Admin: 04/25/19 02:44 Dose: 100 mls/hr Amino Acids (Clinimix -) 1,000 mls @ 84 mls/hr IV Q12H RAUL Last Admin: 04/24/19 23:25 Dose: Not Given Lactobacillus Acidophilus (Bacid -) 1 tab PO DAILY [facility] Last Admin: 04/22/19 09:21 Dose: 1 tab Lorazepam (Ativan Injection -) 1 mg IVPUSH Q6H PRN PRN Reason: ANXIETY Last Admin: 04/24/19 23:47 Dose: 1 mg Methylprednisolone Sodium Succinate (Solu-Medrol -) 40 mg IVPUSH Q8H-IV [facility] Last Admin: 04/25/19 02:42 Dose: 40 mg Metoprolol Tartrate (Lopressor Injection -) 5 mg IVPB Q4H-IV [facility] Last Admin: 04/25/19 06:57 Dose: 5 mg Nebivolol (Bystolic -) 20 mg PO DAILY [facility] Last Admin: 04/22/19 09:25 Dose: 20 mg Ondansetron HCl (Zofran Injection) 4 mg IVPUSH Q6H PRN PRN Reason: NAUSEA AND/OR VOMITING Pantoprazole Sodium (Protonix Iv) 40 mg IVPB BID [facility] Last Admin: 04/24/19 23:17 Dose: 40 mg Polyethylene Glycol (Miralax (For Daily Use) -) 17 gm PO DAILY [facility] Last Admin: 04/22/19 09:20 Dose: Not Given Rosuvastatin Calcium (Crestor -) 10 mg PO HS [facility] Last Admin: 04/21/19 22:43 Dose: 10 mg A/P Pneumonia - Health care acquired Aspiration Acute COPD Exacerbation 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
[2019-04-25] MEDS: PANTOPRAZOLE SODIUM 40 MG VIAL IVPB SCH (10:26)
[2019-04-25] MEDS: HEPARIN NA (PORCINE) 5,000 UNITS/ML 1ML VIAL SQ SCH (10:26)
[2019-04-25] MEDS: AMINO ACIDS 4.25%/D5W 1,000 ML IV SCH (10:29)
[2019-04-25 11:23] LABS: ANISOCYTOSIS 0; HELMET CELLS 0; HOWELL-JOLLY BODIES 0; MACROCYTOSIS 0; OVALOCYTE 0; PLATELET ESTIMATE NORMAL; ROULEAU 0; SICKELED CELLS 0; TARGET CELLS 0; TEAR DROP CELLS 0; TOXIC GRANULATION 0
[2019-04-25] MEDS: LORazepam 2 MG/ML SDV VIAL IVPUSH PRN ×2 (12:39→13:34)
[2019-04-25] MEDS ORDERED: LORazepam 2 MG/ML SDV VIAL ONE (13:33)
--- NOTE | 2019-04-25 14:58 | PN.GI ---
GI Progress Note Subjective: GI Note: The patient was seen just before being transferred to [facility]. Her CXR reveals retained barium in the distal esophagus as expected with achalasia. Advised to refrain from eating or drinking anything until this is taken care of - Objective Vital Signs: Vital Signs Temperature 98.2 F 04/25/19 06:00 Pulse Rate 81 04/25/19 13:02 Respiratory Rate 18 04/25/19 06:00 Blood Pressure 190/108 H 04/25/19 13:02 O2 Sat by Pulse Oximetry (%) 98 04/24/19 21:00 Laboratory Tests 04/15/19 04/21/19 04/23/19 21:00 06:50 08:35 WBC 14.7 H 29.1 H 19.4 H Hgb Total Bilirubin AST ALT Alkaline Phosphatase 04/25/19 04/25/19 08:15 08:15 WBC 18.9 H Hgb 10.8 Total Bilirubin 0.7 AST 13 L ALT 12 L Alkaline Phosphatase 49 Constitutional: Anxious ...Auscultate: Yes: Normoactive Bowel Sounds ...Palpate: Yes: Soft, Other (nontender) Labs: CBC, BMP 04/25/19 08:15 04/25/19 08:15 INR, PTT INR 1.24 (0.83-1.09) H 04/15/19 21:00 Assessment/Plan Assessment: - S/P Prolonged esophageal food disempaction. -- Achalasia now confirmed by the esophagram. 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 Plan: -- Transferred to [place] for definitive achalasia therapy and further investigation and treatment of suspect lung malignancy. Problem List - Problems (1) Achalasia Code(s): K22.0 - ACHALASIA OF CARDIA (2) Esophageal obstruction Code(s): K22.2 - ESOPHAGEAL OBSTRUCTION (3) Weight loss Code(s): R63.4 - ABNORMAL WEIGHT LOSS (4) Vocal cord paralysis Code(s): J38.00 - PARALYSIS OF VOCAL CORDS AND LARYNX, UNSPECIFIED (5) Dysphagia Code(s): R13.10 - DYSPHAGIA, UNSPECIFIED (6) COPD (chronic obstructive pulmonary disease) Code(s): J44.9 - CHRONIC OBSTRUCTIVE PULMONARY DISEASE, UNSPECIFIED (7) HLD (hyperlipidemia) Code(s): E78.5 - HYPERLIPIDEMIA, UNSPECIFIED (8) HTN (hypertension) Code(s): I10 - ESSENTIAL (PRIMARY) HYPERTENSION (9) Lung mass Code(s): R91.8 - OTHER NONSPECIFIC ABNORMAL FINDING OF LUNG FIELD
[2019-04-26 09:19] VITALS: BP 190/100; PULSE 80; TEMP 98
== END 2019-04-25 14:00 | disposition short-term general hospital (02) | DRG 178 ==
LOC: JER 20:24 → JERBED 04-16 01:06 → J4W 04-16 21:18 → J5S 04-20 20:54
PROVIDERS: ADMIT Specialist; ATTEND Specialist
PROC: 0DC58ZZ Extirpation of Matter from Esophagus, Via Natural or Artificial Opening Endoscopic (ICD-10-PCS; principal; 2019-04-23 12:15)
DX: J69.0 Pneumonitis due to inhalation of food and vomit (principal); J44.1 Chronic obstructive pulmonary disease with (acute) exacerbation; J44.0 Chronic obstructive pulmonary disease with (acute) lower respiratory infection; C34.90 Malignant neoplasm of unspecified part of unspecified bronchus or lung; R64 Cachexia; D72.829 Elevated white blood cell count, unspecified; I10 Essential (primary) hypertension; E78.5 Hyperlipidemia, unspecified; J44.9 Chronic obstructive pulmonary disease, unspecified; F17.210 Nicotine dependence, cigarettes, uncomplicated; F41.9 Anxiety disorder, unspecified; K22.0 Achalasia of cardia; R59.1 Generalized enlarged lymph nodes; R13.10 Dysphagia, unspecified; R63.4 Abnormal weight loss; T18.198A Other foreign object in esophagus causing other injury, initial encounter; X58.XXXA Exposure to other specified factors, initial encounter; Y93.9 Activity, unspecified; Y92.89 Other specified places as the place of occurrence of the external cause; Y99.9 Unspecified external cause status; Z68.22 Body mass index [BMI] 22.0-22.9, adult
CPT/HCPCS: 36415; 70450-TC; 71045-TC-FY; 71046-TC-FY; 71250-TC; 74177-TC; 74220-TC-FY; 74230-TC-FY; 74240-TC-FY; 80048; 80053; 81003; 82550; 82962; 83605; 83735; 84100; 84443; 84484; 85025; 85027; 85610; 85730; 86140; 87040; 87070; 87086; 87205; 92611-GN; 93005; 93010; 94640; 94760; 97116-GP; 97161-GP; 99285-25; J1644; J7030